=== PATIENT | female | born 1975 | race Caucasian/White ===

== ENCOUNTER → 2021-08-22 15:03 | Outpatient (CLI) | payer BC, SELFPAY ==
--- NOTE | ~2021-08-22 | MM_ITS ---
EXAMINATION: MM screening nella BI w david HISTORY: Screening mammogram TECHNIQUE: Craniocaudal and mediolateral oblique 3-D tomosynthesis images were obtained and synthetic 2-D images were generated. CAD analysis was submitted and interpreted. COMPARISON: No prior mammogram is available for comparison at this institution. BREAST PARENCHYMAL COMPOSITION: The breasts are almost entirely fatty. FINDINGS: There is no evidence of suspicious mass, calcification, or architectural distortion to sugg est malignancy in either breast. There has been no suspicious interval change. IMPRESSION: 1. No mammographic evidence of malignancy. 2. Recommend routine screening mammography in one year. BI-RADS Category 1: Negative Reviewed, dictated and finalized at location A.
== END ==
PROVIDERS: PCP Physician Assistant; Visit Provider Nurse Practitioner
DX: Z12.31 Encounter for screening mammogram for malignant neoplasm of breast (principal)
CPT/HCPCS: 77063; 77067

== ENCOUNTER → 2022-10-08 13:42 | Outpatient (CLI) | payer OTHER, SELFPAY ==
--- NOTE | ~2022-10-08 | US_ITS ---
EXAMINATION: US pelvic complete w TV DATE: 10/08/2022 14:11 INDICATION: Abnormal uterine bleeding. TECHNIQUE: Multiple transabdominal and transvaginal sonographic images of the pelvis were obtained. COMPARISON: None. FINDINGS: TRANSABDOMINAL ULTRASOUND: The uterus measures 10.1 x 4.9 x 6.1 cm. There is no free fluid in the pelvis. TRANSVAGINAL ULTRASOUND: The endometrial complex measures 10 mm in thickness. The right ovary measures 2.7 x 1.6 x 1.9 cm. The left ovary measures 2.6 x 2.4 x 2.8 cm. There is normal vascular flow in the ovaries. IMPRESSION: 1. Normal pelvis. Reviewed, dictated and finalized at location E. IMPRESSION: 1. Normal pelvis.
--- NOTE | ~2022-10-08 | MM_ITS ---
EXAMINATION: MM diagnostic nella BI w david HISTORY: Right breast pain TECHNIQUE: ML, MLO and CC 3-D tomosynthesis images of both breasts were performed and synthetic 2-D i mages were generated. CAD analysis was submitted and interpreted. COMPARISON: 08/22/2021, 08/02/2017bilateral screening mammogram examinations BREAST PARENCHYMAL COMPOSITION: There are scattered areas of fibroglandular density. FINDINGS: No suspicious mass or architectural distortion, malignant calcification, skin thickening or retraction or significant new or developing density is detected. IMPRESSION: 1. No mammographic evidence of malignancy 2. Routine annual mammographic screening is recommended BI-RADS Category 1: Negative Reviewed, dictated and finalized at location A.
== END ==
PROVIDERS: PCP Physician Assistant; Visit Provider Nurse Practitioner
DX: N93.8 Other specified abnormal uterine and vaginal bleeding (principal); N64.4 Mastodynia
CPT/HCPCS: 76830; 76856; 77062; 77066; G0279

== ENCOUNTER → 2023-03-30 16:40 | Outpatient (CLI) | payer OTHER, SELFPAY ==
--- NOTE | ~2023-03-30 | XR_ITS ---
XR chest 2V DATE: 03/30/2023 16:59 INDICATION: Cough TECHNIQUE: 2 views COMPARISON: None FINDINGS: Normal heart size. No hilar or mediastinal enlargement. No pulmonary infiltrate or consolid ation, pleural effusion or pulmonary vascular congestion or pneumothorax is detected. IMPRESSION: No active cardiopulmonary disease Reviewed, dictated and finalized at [facility] L. LE MECHANIC
== END ==
PROVIDERS: PCP Physician Assistant; Visit Provider Physician Assistant
DX: R05.9 Cough, unspecified (principal)
CPT/HCPCS: 71046

== ENCOUNTER 2024-01-12 12:22 | Outpatient (CLI) | payer BC, SELFPAY ==
--- NOTE | ~2024-01-12 | MM_ITS ---
EXAMINATION: MM screening [facility] BI w david HISTORY: Screening TECHNIQUE: Craniocaudal and mediolateral oblique 3-D tomosynthesis images were obtained and synthetic 2-D images were generated. CAD analysis was submitted and interpreted. COMPARISON: Comparison to multiple prior studies sequentially, with oldest reviewed study dated 09/2017. BREAST PARENCHYMAL COMPOSITION: There are scattered areas of fibroglandular density. FINDINGS: There is no evidence of suspicious mass, calcification, or architectural distortion to sugg est malignancy in either breast. There has been no suspicious interval change. IMPRESSION: 1. No mammographic evidence of malignancy. 2. Recommend routine screening mammography in one year. BI-RADS Category 1: Negative Reviewed, dictated and finalized at location B.
== END 2024-01-12 12:23 | disposition home or self-care (01) ==
PROVIDERS: PCP Physician Assistant; Visit Provider Obstetrics & Gynecology Gynecology
DX: Z12.31 Encounter for screening mammogram for malignant neoplasm of breast (principal)
CPT/HCPCS: 77063; 77067

== ENCOUNTER 2024-02-10 12:16 | Outpatient (CLI) | payer BC, SELFPAY ==
--- NOTE | ~2024-02-10 | XR_ITS ---
Left Knee Technique: AP, lateral, and sunrise views were obtained. Clinical History: Injury Findings: No fracture or dislocation is seen. Osseous alignment is anatomic. Joint spaces are preserv ed without degenerative or erosive change. Soft tissues are unremarkable. No joint effusion is seen. Impression: Unremarkable left knee radiographs. Reviewed, dictated and finalized at [facility]. ECTOR AIR CARRIER Impression: Unremarkable left knee radiographs.
--- NOTE | ~2024-02-10 | US_ITS ---
EXAMINATION: US venous doppler [facility] DATE: 02/10/2024 12:48 INDICATION: Left lower leg pain TECHNIQUE: Grayscale ultrasound images without and with compression and Doppler ultrasound images of the left lower extremity veins were obtained. COMPARISON: None. FINDINGS: The visualized portions of left common femoral vein, profunda (deep) femoral vein, femoral vein, popl iteal vein, peroneal veins, posterior tibial veins, gastrocnemius vein and greater saphenous vein out flow are patent. IMPRESSION: 1. No deep venous thrombosis in the left lower limb. Reviewed, dictated and finalized at location B. FITS ADVISOR
== END 2024-02-10 12:17 | disposition home or self-care (01) ==
LOC: MICIMG 12:18
PROVIDERS: PCP Physician Assistant; Visit Provider Physician Assistant
DX: M79.662 Pain in left lower leg (principal); S89.92XA Unspecified injury of left lower leg, initial encounter; X58.XXXA Exposure to other specified factors, initial encounter
CPT/HCPCS: 73562; 93971

== ENCOUNTER 2025-01-15 12:30 | Outpatient (CLI) | payer BC, SELFPAY ==
--- NOTE | ~2025-01-15 | MM_ITS ---
EXAMINATION: MM screening nella BI w david HISTORY: Screening TECHNIQUE: Craniocaudal and mediolateral oblique 3-D tomosynthesis images were obtained and synthetic 2-D images were generated. CAD analysis was submitted and interpreted. COMPARISON: Comparison to multiple prior studies sequentially, with oldest reviewed study dated 08/02/2017. BREAST PARENCHYMAL COMPOSITION: Not Dense: The breasts are almost entirely fatty. FINDINGS: There is no evidence of suspicious mass, calcification, or architectural distortion to suggest malignancy in either breast. There has been no suspicious interval change. IMPRESSION: 1. No mammographic evidence of malignancy. 2. Recommend routine screening mammography in one year. BI-RADS Category 1: Negative Reviewed, dictated and finalized at location O.
== END 2025-01-15 12:31 | disposition home or self-care (01) ==
LOC: MICIMG 12:31
PROVIDERS: PCP Physician Assistant; Visit Provider Obstetrics & Gynecology Gynecology
DX: Z12.31 Encounter for screening mammogram for malignant neoplasm of breast (principal)
CPT/HCPCS: 77063; 77067

== ENCOUNTER 2025-03-17 17:47 | Emergency (ER) | payer BC, SELFPAY ==
--- OUTSIDE RECORDS SUMMARY | 2025-03-16 13:05 | XMS_ITS | Encounter Summary ---
Author Organization [facility] Address [address] [place] [address] Phone Care Team Providers Care Sailor Name Role Phone Jessica Lopez Primary Care Provider [phone] Reason for Visit * Reason Comments Sore Throat Encounter Details Date Type Department Care Team (Latest Contact Info) Description 03/16/2025 1:05 PM OVERHEAD DOOR TECHNICIAN [facility] [place] [address] [place] [address] Maribell Dhillon, LINKER UP, PERSONAL COMPUTER SPECIALIST [address] [place] [address] Viral pharyngitis (Primary Dx); Sore throat Discharge Disposition: Discharged to home or Selfcare Social History Tobacco Use Types Packs/Day Years Used Date Smoking Tobacco: Former Cigarettes 0.5 5 0 03/29/1995 - 03/29/2000 Smokeless Tobacco: Never Tobacco Cessation:Counseling Given: Not Answered Alcohol Use Standard Drinks/Week Comments No 0 (1 standard drink = 0.6 oz pur e alcohol) AUDIT-C Answer Date Recorded Q1: How often do you have a drink containing alcohol? Never 03/16/2025 Q2: How many drinks containi ng alcohol do you have on a typical day when you are drinking? Patient does not drink Q3: How often do you have si x or more drinks on one occasion? Never 03/16/2025 Sexually Active Control Partners Comments Not Currently Comments No Sex and Gender Information Value Date Recorded Sex Assigned at Not on file Legal Sex Female 3:05 AM OVERHEAD DOOR TECHNICIAN Gender Identity Not on file Sexual Orientation Not on file documented as of this encounter Last Filed Vital Signs Vital Sign Reading Time Taken Comments Blood Pressure 104/84 03/16/2025 1:11 PM OVERHEAD DOOR TECHNICIAN Pulse 83 03/16/2025 1:11 PM OVERHEAD DOOR TECHNICIAN Temperature 36.8 C (98.3 F) 03/16/2025 1:11 PM OVERHEAD DOOR TECHNICIAN Respiratory Rate 18 03/16/2025 1:11 PM OVERHEAD DOOR TECHNICIAN Oxygen Saturation 99% 03/16/2025 1:11 PM OVERHEAD DOOR TECHNICIAN Inhaled Oxygen Concentration - - Weight 142.9 kg (315 lb) 03/16/2025 1:11 PM OVERHEAD DOOR TECHNICIAN Height - - Body Mass Index 49.34 08/02/2015 1:07 PM CDT documented in this encounter Functional Status * BP Answer Date of Assessment Author 104/84 03/16/2025 1:11 PM OVERHEAD DOOR TECHNICIAN Denia Snyder, FACILITIES SUPERVISOR * Temp Answer Date of Assessment Author 98.3 03/16/2025 1:11 PM OVERHEAD DOOR TECHNICIAN Denia Snyder, FACILITIES SUPERVISOR * Pulse Answer Date of Assessment Author 83 03/16/2025 1:11 PM OVERHEAD DOOR TECHNICIAN Denia Snyder, FACILITIES SUPERVISOR * Resp Answer Date of Assessment Author 18 03/16/2025 1:11 PM OVERHEAD DOOR TECHNICIAN Denia Snyder, FACILITIES SUPERVISOR * SpO2 Answer Date of Assessment Author 99 03/16/2025 1:11 PM OVERHEAD DOOR TECHNICIAN Denia Snyder, FACILITIES SUPERVISOR * AUDIT-C Score Answer Date of Assessment Author 0 03/16/2025 1:12 PM OVERHEAD DOOR TECHNICIAN Denia Snyder, FACILITIES SUPERVISOR * Alcohol Use Question Answer Date of Assessment Author Q1: How often do you have a drink containing alcohol? Never 03/16/2025 1:12 PM Syed Schuler CM A Q2: How many drinks containing alcohol do you have on a typical day when you are drinking? Patient does not drink 03/16/2025 1:12 PM OVERHEAD DOOR TECHNICIAN Syed Snyder FACILITIES SUPERVISOR Q3: How often do you have six or more drinks on one occasion? Never 03/16/2025 1:12 PM OVERHEAD DOOR TECHNICIAN Syed Snyder CM A * AUDIT-C Score Answer Date of Assessment Author 0 03/16/2025 1:12 PM OVERHEAD DOOR TECHNICIAN Denia Snyder, FACILITIES SUPERVISOR * Alcohol Use Question Answer Date of Assessment Author Q1: How often do you have a drink containing alcohol? Never 03/16/2025 1:12 PM Syed Schuler CM A Q2: How many drinks containing alcohol do you have on a typical day when you are drinking? Patient does not drink 03/16/2025 1:12 PM Syed Schuler CMA Q3: How often do you have six or more drinks on one occasion? Never 03/16/2025 1:12 PM Syed Schuler CM A documented as of this encounter Mental Status * BP Answer Entry Date Author 104/84 03/16/2025 1:11 PM Denia Schuler, SUDHA * Temp Answer Entry Date Author 98.3 03/16/2025 1:11 PM Denia Schuler, SUDHA * Pulse Answer Entry Date Author 83 03/16/2025 1:11 PM Denia Schuler CMA * SpO2 Answer Entry Date Author 99 03/16/2025 1:11 PM Denia Schuler CMA documented in this encounter Patient Instructions * Patient Instructions* Maribell Dhillon APRN, CNP - 03/16/2025 1:05 PM OVERHEAD DOOR TECHNICIAN Rest as needed Tylenol or ibuprofen as needed for low grade fevers or body aches. Do not exceed the recommended daily dosage as noted on the package/bottle. Increase fluid intake: this can include water, tea, Gatorade, or Pedialyte. Avoid milk and juice asthese may increase loose stools. Over the counter cough Supressant may be used as may cough drops and throat lozenges. Avoid any over the counter cold medication with a decongestant if you have high blood pressure. If in doubt, ask the pharmacist for help. Cool mist humidifier at night in the bedroom will help with cough and congestion. Mucinex per package directions Finish all medications as prescribed. Cover your cough and wash your hands. If your symptoms worsen or you develop new symptoms that concern you, go to the ER. Follow up with PCP if no improvement in the symptoms, or symptoms worsen. HEAD DOOR TECHNICIAN * Attachments The following attachments cannot be sent through Care Everywhere. * Pharyngitis [id number]-my-Soel (American) documented in this encounter Progress Notes * Syed Snyder CMA - 03/16/2025 1:05 PM CST Christel Soriano complains of Sore Throat This is a new problem. Episode onset: Three days. The problem has been gradually worsening. Neitherside of throat is experiencing more pain than the other. There has been no fever. The pain is at a severity of 7/10. The pain is severe. She has had exposure to strep. She has tried nothing for the symptoms. Today's Review of Systems Constitutional: Negative. HENT: Positive for sore throat. Postnasal drip Eyes: Negative. Respiratory: Negative. Cardiovascular: Negative. Gastrointestinal: Negative. Genitourinary: Negative. Musculoskeletal: Negative. Skin: Negative. Neurological: Negative. Endo/Heme/Allergies: Negative. Psychiatric/Behavioral: Negative. HEAD DOOR TECHNICIAN * ySed Synder CMA - 03/16/2025 1:05 PM CST Pt was tested for streptococcal pharyngitis by swabbing the oropharynx. Pt tolerated well without incident. HEAD DOOR TECHNICIAN * Maribell Dhillon APRN, PERSONAL COMPUTER SPECIALIST - 03/16/2025 1:05 PM CST HPI: Christel Soriano is a 49 y.o. female in the [facility] care today for a sore throat and post nasal drainage. She denies any further symptoms. Her son is positive for strep. Symptoms started 3 days ago Severity of symptoms is moderate Symptoms have Not changed Patient is not currently taking over the counter medications for the symptoms. No pertinent Past, family, or social history was noted Problem List[1] ROS: Review of Systems Constitutional: Negative for chills and fever. HENT: Positive for postnasal drip and sore throat. Negative for congestion, ear pain, rhinorrhea, sinus pressure, sinus pain and sneezing. Respiratory: Negative for cough, chest tightness, shortness of breath and wheezing. Gastrointestinal: Negative for diarrhea, nausea and vomiting. Musculoskeletal: Negative for myalgias. Neurological: Negative for headaches. PE: BP 104/84 (BP Location: Right Arm, BP Position: Sitting, BP Cuff Size: Large) Pulse 83 Temp 98.3 ??F (36.8 ??C) (Oral) Resp 18 Wt 315 lb (142.9 kg) LMP 03/04/2025 (Exact Date) SpO2 99% BMI 49.34 kg/m?? Physical Exam Vitals and nursing note reviewed. Constitutional: Appearance: Normal appearance. She is normal weight. HENT: Right Ear: Tympanic membrane, ear canal and external ear normal. Left Ear: Tympanic membrane, ear canal and external ear normal. Nose: Nose normal. Mouth/Throat: Mouth: Mucous membranes are moist. Pharynx: Oropharynx is clear. Eyes: Conjunctiva/sclera: Conjunctivae normal. Cardiovascular: Rate and Rhythm: Normal rate and regular rhythm. Pulses: Normal pulses. Heart sounds: Normal heart sounds. Pulmonary: Effort: Pulmonary effort is normal. No respiratory distress. Breath sounds: Normal breath sounds. Musculoskeletal: Cervical back: Neck supple. Lymphadenopathy: Cervical: No cervical adenopathy. Skin: General: Skin is warm and dry. Neurological: Mental Status: She is alert. ASSESSMENT/PLAN: Diagnoses and all orders for this visit: Viral pharyngitis Sore throat - POC GROUP A STREP BY MOLECULAR Patient Instructions Rest as needed Tylenol or ibuprofen as needed for low grade fevers or body aches. Do not exceed the recommended daily dosage as noted on the package/bottle. Increase fluid intake: this can include water, tea, Gatorade, or Pedialyte. Avoid milk and juice asthese may increase loose stools. Over the counter cough Supressant may be used as may cough drops and throat lozenges. Avoid any over the counter cold medication with a decongestant if you have high blood pressure. If in doubt, ask the pharmacist for help. Cool mist humidifier at night in the bedroom will help with cough and congestion. Mucinex per package directions Finish all medications as prescribed. Cover your cough and wash your hands. If your symptoms worsen or you develop new symptoms that concern you, go to the ER. Follow up with PCP if no improvement in the symptoms, or symptoms worsen. Chief complaint and all history documented by ancillary staff were reviewed and verified, with additions or corrections, as appropriate. [1] Patient Active Problem List Diagnosis Obesity ADHD (attention deficit hyperactivity disorder) Restless leg syndrome PCOS (polycystic ovarian syndrome) Vitamin D deficiency Hypercholesteremia HEAD DOOR TECHNICIAN documented in this encounter Plan of Treatment Not on file documented as of this encounter Procedures Procedure Name Priority Date/Time Associated Diagnosis Comments POC GROUP A STREP BY MOLECULAR Routine 03/16/2025 1:25 PM OVERHEAD DOOR TECHNICIAN Sore throat documented in this encounter Results * POC GROUP A STREP BY MOLECULAR (03/16/2025 1:25 PM OVERHEAD DOOR TECHNICIAN) STREP A DNA Negative Negative, Invalid PROCEDURE CONTROL Valid 03/16/2025 1:25 PM OVERHEAD DOOR TECHNICIAN Maribell Dhillon APRN, CNP POINT OF CARE TEST ING (MANUAL) Final Result documented in this encounter Visit Diagnoses Diagnosis Viral pharyngitis- Primary Acute pharyngitis Sore throat Acute pharyngitis documented in this encounter Care Teams Sailor Relationship Specialty Start Date End Date Jessica Lopez PA PCP - General Family Medicine 09/24/21 documented as of this encounter
--- OUTSIDE RECORDS SUMMARY | 2025-03-17 17:49 | XMS_ITS | Encounter Summary ---
Author Organization [facility] Healthcare Address [address] [place] [address] Care Team Providers Care Director Of Pediatric Rehabilitation Name Role Phone Jessica Lopez Primary Care Pr ovider Lisa Amato Unavailable [phone] Encounter Details Date Type Department Care Team (Late st Contact Info) Description 03/02/2025 Results Follow-Up [facility] Sports Medicine and Primary Care at [address] [place] [address] Sivakumar Dodson, [address] [place] [address] NM Bone Imaging Whole Body Social History Tobacco Use Types Packs/Day Years Used Date Smoking Tobacco: Former Cigarettes Q uit: 1997 Smokeless Tobacco: Never Alcohol Use Standard Drinks/Week Comments Never 0 (1 standard drink = 0.6 oz pur e alcohol) AUDIT-C Answer Date Recorded Q1: How often do you have a drink containing alcohol? Never 12/14/2024 Q2: How many drinks containi ng alcohol do you have on a typical day when you are drinking? Patient does not drink Q3: How often do you have si x or more drinks on one occasion? Never 12/14/2024 Personal Safety Answer Date Recorded Have you ever been in or are you currently in a harmful physical or emotional relationship or is someone making you feel afraid or unsafe? Denies 11/30/2024 Comments No Sex and Gender Information Value Date Recorded Sex Assigned at Not on file Legal Sex Female 10:54 AM WOMENS VOLLEYBALL COACH Gender Identity Not on file Sexual Orientation Not on file documented as of this encounter Miscellaneous Notes * Result Encounter Note - Vanessa Glynn MA - 03/06/2025 4:26 PM CST Spoke with patient she voiced understanding the NM Bone Scan test result message and recommendations. NS VOLLEYBALL COACH * Telephone Encounter - Lisa Avalos - 03/06/2025 3:29 PM CST Patient left message stating she is returning our call NS VOLLEYBALL COACH * Result Encounter Note - Vanessa Glynn MA - 03/06/2025 10:38 AM CST Left message for patient to return my call for results. NS VOLLEYBALL COACH * Result Encounter Note - Vanessa Glynn MA - 03/02/2025 11:51 AM CST Unable to contact patient or leave a message. Mailbox is full and cannot leave a message. NS VOLLEYBALL COACH documented in this encounter Plan of Treatment Not on file documented as of this encounter Visit Diagnoses Not on filedocumented in this encounter Care Teams Director Of Pediatric Rehabilitation Relationship Specialty Start Date End Date Jessica Lopez PA PCP - General 10/10/18 Lisa Amato PA [address] [place] [address] DR SIMPSON [address] [place] [id number] Physician R D Internship Orthopedic Surgery 11/30/24 documented as of this encounter
--- OUTSIDE RECORDS SUMMARY | 2025-03-17 17:49 | XMS_ITS | Encounter Summary ---
Author Organization [facility] Healthcare Address [address] [place] [address] Care Team Providers Care Nondestructive Tester Name Role Phone Jessica Lopez Primary Care Pr ovider Lisa Amato Unavailable [phone] Encounter Details Date Type Department Care Team (Late st Contact Info) Description 02/09/2025 Results Follow-Up [facility] Medical Group Sports Medicine and Primary Care at [address] [place] [address] Sivakumar Dodson, [address] [place] [address] MRI Knee Left W WO Contrast Social History Tobacco Use Types Packs/Day Years [...] on file Legal Sex Female 10:54 AM STATISTICAL MODELER Gender Identity Not on file Sexual Orientation Not on file documented as of this encounter Miscellaneous Notes * Telephone Encounter - Rylie Davila - 02/09/2025 2:36 PM CST Justyna from PCP Jessica Lopez's office called. They needs something sent over stating patient needs a bone scan. Please fax to: [phone]. Any questions, call [phone]. ISTICAL MODELER documented in this encounter Plan of Treatment Not on file documented as of this encounter Visit Diagnoses Not on filedocumented in this encounter Care Teams Nondestructive Tester Relationship Specialty Start Date End Date Jessica Lopez PA PCP - General 10/10/18 Lisa Amato PA [address] [facility] [address] SIMPSON [address] [place] [id number] Physician Sales And Service Agent Orthopedic Surgery 11/30/24 documented as of this encounter
--- OUTSIDE RECORDS SUMMARY | 2025-03-17 17:49 | XMS_ITS | Encounter Summary ---
Author Organization [employer] Care Team Providers Care Pressure Sealer And Tester Name Role Phone Jessica Lopez Primary Care Provider [phone] Encounter Details Date Type Department Care Team (Latest Contact Info) Description 03/16/2025 Travel Social History Tobacco Use Types Packs/Day Years Used Date Smoking Tobacco: Former Cigarettes 0.5 5 0 03/29/1995 - 03/29/2000 Smokeless Tobacco: Never Alcohol Use Standard Drinks/Week Comments No 0 [...] on file Legal Sex Female 3:05 AM INDUSTRIAL TRUCK OPERATOR Gender Identity Not on file Sexual Orientation Not on file documented as of this encounter Functional Status * BP Answer Date of Assessment Author 104/84 03/16/2025 1:11 PM INDUSTRIAL TRUCK OPERATOR Denia Snyder, COOPERATIVE EDUCATION COORDINATOR * Temp Answer Date of Assessment Author 98.3 03/16/2025 1:11 PM INDUSTRIAL TRUCK OPERATOR Denia Snyder, COOPERATIVE EDUCATION COORDINATOR * Pulse Answer Date of Assessment Author 83 03/16/2025 1:11 PM INDUSTRIAL TRUCK OPERATOR Denia Snyder, COOPERATIVE EDUCATION COORDINATOR * Resp Answer Date of Assessment Author 18 03/16/2025 1:11 PM INDUSTRIAL TRUCK OPERATOR Denia Snyder, COOPERATIVE EDUCATION COORDINATOR * SpO2 Answer Date of Assessment Author 99 03/16/2025 1:11 PM Denia Schuler, COOPERATIVE EDUCATION COORDINATOR * AUDIT-C Score Answer Date of Assessment Author 0 03/16/2025 1:12 PM Denia Schuler, COOPERATIVE EDUCATION COORDINATOR * Alcohol Use Question Answer Date of Assessment Author Q1: How often do you have a drink containing alcohol? Never 03/16/2025 1:12 PM Syed Schuler CM A Q2: How many drinks containing alcohol do you have on a typical day when you are drinking? Patient does not drink 03/16/2025 1:12 PM Syed Schuler COOPERATIVE EDUCATION COORDINATOR Q3: How often do you have six or more drinks on one occasion? Never 03/16/2025 1:12 PM Syed Schuler CM A * AUDIT-C Score Answer Date of Assessment Author 0 03/16/2025 1:12 PM Denia Schuler, COOPERATIVE EDUCATION COORDINATOR * Alcohol Use Question Answer Date of Assessment Author Q1: How often do you have a drink containing alcohol? Never 03/16/2025 1:12 PM Syed Schuler CM A Q2: How many drinks containing alcohol do you have on a typical day when you are drinking? Patient does not drink 03/16/2025 1:12 PM Syed Schuler COOPERATIVE EDUCATION COORDINATOR Q3: How often do you have six or more drinks on one occasion? Never 03/16/2025 1:12 PM Syed Schuler CM A documented as of this encounter Mental Status * BP Answer Entry Date Author 104/84 03/16/2025 1:11 PM Denia Schuler, COOPERATIVE EDUCATION COORDINATOR * Temp Answer Entry Date Author 98.3 03/16/2025 1:11 PM Denia Schuler, COOPERATIVE EDUCATION COORDINATOR * Pulse Answer Entry Date Author 83 03/16/2025 1:11 PM Denia Schuler, COOPERATIVE EDUCATION COORDINATOR * SpO2 Answer Entry Date Author 99 03/16/2025 1:11 PM Denia Schuler, COOPERATIVE EDUCATION COORDINATOR documented in this encounter Plan of Treatment Not on file documented as of this encounter Visit Diagnoses Not on filedocumented in this encounter Care Teams Pressure Sealer And Tester Relationship Specialty Start Date End Date Jessica Lopez PA PCP - General Family Medicine 09/24/21 documented as of this encounter
--- OUTSIDE RECORDS SUMMARY | 2025-03-17 17:49 | XMS_ITS | Clinical Summary ---
Author Organization [facility] Address [address] [place] [address] Care Team Providers Care Engagement Liaison Name Role Phone Pcp, No Primary Care Provider [phone] Social History Tobacco Use Types Packs/Day Years Used Date Smoking Tobacco: Never Assessed Comments Unknown Sex and Gender Information Value Date Recorded Sex Assigned at Not on file Legal Sex Female 3:05 PM EST Gender Identity Not on file Sexual Orientation Not on file Plan of Treatment Not on file Medical Devices Not on file Care Teams Engagement Liaison Relationship Specialty Start Date End Date PcpJeanette PCP - General Family Medicine 04/04/21
--- OUTSIDE RECORDS SUMMARY | 2025-03-17 17:49 | XMS_ITS | Clinical Summary ---
Author Organization [facility] Address [address] [place] [phone] Phone Care Team Providers Care Lithographic Photographer Name Role Phone Unavailable Primary Care Provider Unavailabl e Social History Tobacco Use Types Packs/Day Years Used Date Smoking Tobacco: Never Assessed Comments Unknown Sex and Gender Information Value Date Recorded Sex Assigned at Not on file Legal Sex Female 12:21 PM CDT Gender Identity Not on file Sexual Orientation Not on file Plan of Treatment Health Maintenance Due Date Last Done Comments HEPATITIS B VACCINES (1 of 3 - 19+ 3-dose series) 06/24/1995 11/16/2003, 08/17/2003, 07/12/2003 HPV/Cotest (21-29) 1997 CERVICAL CANCER SCREENING 2006 HPV/Cotest (30-65) 2006 PAP SMEAR 2006 BREAST CANCER SCREENING 2016 COLORECTAL SCREENING 2021 Colorectal Cancer Screening 2021 FIT-DNA Q 3 years 2021 FIT/FOBT Q 1 year 2021 Flex Sig/CT Colonography Q 5 years 2021 DTAP/TDAP/TD VACCINES (2 - T d or Tdap) 10/04/2021 10/05/2011 INFLUENZA VACCINE (#1) 2024 03/04/2012 Insurance 99Jose Castrejon[place]ty [place] [id number] [place] BLUE ACCESS [facility]
--- OUTSIDE RECORDS SUMMARY | 2025-03-17 17:49 | XMS_ITS | Clinical Summary ---
Author Organization [facility] Address [address] [place] [address] Care Team Providers Care Assistant Broker Name Role Phone MichellekavehJessica Primary Care Pr ovider Lisa Amato Unavailable Allergies Active Allergy Reactions Criticality Noted Date Comments Gluten Rash Medium 05/24/2017 Medications ergocalciferol (VITAMIN D) 50,000 unit capsuleIndicati ons:Vitamin D Deficiency Take 1 capsule (50,000 Units total) by mouth once a week Wednesday Active levothyroxine (SYNTHROID) 75 mcg tabletIndicatio ns:hypothyroidi sm Take 1 tablet (75 mcg total) by mouth molding machine setter before breakfast Active valACYclovir (VALTREX) 1 gram tablet Take 1 tablet (1,000 mg total) by mouth 2 (two) times a day as needed (HSV outbreak) Active albuterol 2.5 mg /3 mL (0.083 %) nebulizer solution Take 3 mL (2.5 mg total) by nebulization every 6 (six) hours as needed for wheezing Active albuterol HFA (PROVENTIL HFA,VENTOLIN HFA,PROAIR HFA) 90 mcg/actuation inhaler Inhale 2 puffs every 6 (six) hours as needed for wheezing or shortness of breath Active dextromethorpha n-guaiFENesin (ROBITUSSIN-DM) oral liquid 10-200 mg/5mL Take 30 mL by mouth every 8 (eight) hours as needed (URI) Active meloxicam (MOBIC) 15 mg tablet Take 1 tablet (15 mg total) by mouth daily 5 Active ascorbic acid (VITAMIN C) 500 mg tablet,chewable Take 1 tablet/chew tab (500 mg total) by mouth 2 (two) times a day 60 tablet/chew tab 5 Active aspirin 81 mg enteric coated tabletIndicatio ns:prevention of thrombosis Take 1 tablet (81 mg total) by mouth 2 (two) times a day for 14 days 28 tablet 5 Active cholecalciferol (VITAMIN D-3) 2000 unit capsule Take 1 capsule (2,000 Units total) by mouth daily 30 capsule 5 Active ondansetron (ZOFRAN) 4 mg tabletIndicatio ns:Prevention of Post-Operative Nausea and Vomiting Take 1 tablet (4 mg total) by mouth every 6 (six) hours as needed for nausea or vomiting 20 tablet 1 5 Active senna-docusate (PERICOLACE) 8.6-50 mg Take 1 tablet by mouth 2 (two) times a day as needed for constipation 20 tablet 1 5 Active Active Problems Problem Noted Date Diagnosed Date Complex tear of medial meniscus of left knee Complex tear of medial menis cus of left knee as current injury 11/17/2024 Morbid obesity with BMI of 45.0-49.9, adult 10/28 Encounter for screening colonoscopy 07/13/2023 Obstructive sleep apnea 10/12/2022 Resolved Problems Problem Noted Date Diagnosed Date Resolved Date Chronic tonsillitis 07/21/2022 10/13/19 23 Encounters Date Type Department Care Team Description 03/15/2025 10:15 AM CRIMPING MACHINE OPERATOR FOR METAL Therapy [facility] [place] [address] Alena Kent, PT Separation of abdominal muscles (Primary Dx) 03/08/2025 1:00 PM CRIMPING MACHINE OPERATOR FOR METAL Therapy [facility] [place] [address] Alena Kent, PT Separation of abdominal muscles (Primary Dx) 03/02/2025 1:00 PM CRIMPING MACHINE OPERATOR FOR METAL Therapy [facility] [place] [address] [place] [address] Alena Kent, BRENDA Separation of abdominal muscles (Primary Dx) 03/02/2025 Results Follow-Up [facility] Primary Care at [address] [place] [address] Sivakumar Dodson DO NM Bone Imaging Whole Body 03/01/2025 11:11 AM CRIMPING MACHINE OPERATOR FOR METAL - 03/01/2025 11:59 PM CRIMPING MACHINE OPERATOR FOR METAL Hospital Encounter [facility] [address] [place] [address] Discharge Disposition: Discharge to home or self care 03/01/2025 11:11 AM CRIMPING MACHINE OPERATOR FOR METAL - 03/01/2025 11:59 PM CRIMPING MACHINE OPERATOR FOR METAL Hospital Encounter [facility] [address] [place] [id number] Lesion of bone of left lower leg; Internal derangement of left knee; Patellofemoral syndrome of left knee Discharge Disposition: Discharge to home or self care 02/14/2025 Orders Only [facility] Primary Care at [address] [place] [phone] Sivakumar Dodson DO Lesion of bone of left lower leg (Primary Dx); Internal derangement of left knee; Patellofemoral syndrome of left knee 02/14/2025 Telephone [facility] [address] [facility] [address] [phone] Sivakumar Dodson DO 02/09/2025 9:02 AM CRIMPING MACHINE OPERATOR FOR METAL - 02/09/2025 11:59 PM CRIMPING MACHINE OPERATOR FOR METAL Hospital Encounter [facility] [address] [place] [address] Lesion of bone of left lower leg; Internal derangement of left knee; Patellofemoral syndrome of left knee Discharge Disposition: Discharge to home or self care 02/09/2025 Results Follow-Up [facility] Primary Care at [address] [place] [phone] Sivakumar Dodson DO MRI Knee Left W WO Contrast 02/08/2025 Telephone [facility] and Primary Care at [address] [place] [address] Alessandra Beck MA Approved MRI left knee with contrast 02/07/2025 10:00 AM CRIMPING MACHINE OPERATOR FOR METAL Office Visit [facility] Primary Care at [address] [place] [address] Sivakumar Dodson, Lesion of bone of left lower leg (Primary Dx) 02/07/2025 Orders Only [facility] and Primary Care at [address] [place] [address] Sivakumar Dodson, Lesion of bone of left lower leg (Primary Dx); Internal derangement of left knee; Patellofemoral syndrome of left knee 01/31/2025 1:00 PM CRIMPING MACHINE OPERATOR FOR METAL Therapy [facility] [place] [address] Alena Kent, PT Separation of abdominal muscles (Primary Dx) 01/24/2025 2:45 PM CDT Therapy [facility] [place] [address] Alena Kent, PT Separation of abdominal muscles (Primary Dx) 01/24/2025 Plan of Care Documentation [facility] [place] [address] 01/08/2025 11:00 AM CDT Therapy [facility] [place] [address] Alena Kent, PT S/P medial meniscectomy of left knee (Primary Dx); Complex tear of medial meniscus of left knee as current injury, subsequent encounter 01/05/2025 2:30 PM CDT Therapy [facility] [place] [address] Alena Kent, PT S/P medial meniscectomy of left knee (Primary Dx); Complex tear of medial meniscus of left knee as current injury, subsequent encounter 12/28/2024 1:00 PM CDT Therapy [facility] [place] [address] Alena Kent, PT S/P medial meniscectomy of left knee (Primary Dx); Complex tear of medial meniscus of left knee as current injury, subsequent encounter 12/25/2024 11:00 AM CDT Therapy [facility] [place] [address] Alena Kent, PT S/P medial meniscectomy of left knee (Primary Dx); Complex tear of medial meniscus of left knee as current injury, subsequent encounter 12/21/2024 1:45 PM CDT Therapy [facility] [place] [address] Alena Kent, PT S/P medial meniscectomy of left knee (Primary Dx); Complex tear of medial meniscus of left knee as current injury, subsequent encounter 12/18/2024 10:15 AM CDT Therapy [facility] [place] [address] Alena Kent, PT S/P medial meniscectomy of left knee (Primary Dx); Complex tear of medial meniscus of left knee as current injury, subsequent encounter from Last 3 Months Immunizations Immunization Administration Dates Next Due Hep B Vaccine 11/16/2003,08/17/2003,07/12/2003 Influenza, Trivalent, IM (MDV) 03/04/2012 MMR 10/16/1990 PPD TEST 11/10/2022 Td, adsorbed 07/12/2003 Tdap 04/23/2018,10/05/2011 Tetanus Toxoid, Unspecified 03/29/2011 Surgical History Surgery Date Site/Laterality Comments KNEE SURGERY 03/29/2007 - 03/28/2008 SECTION 03/29/2018 - 03/28/2019 WISDOM TOOTH EXTRACTION 03/29/1993 - 03/28/1994 COLONOSCOPY 2015 DILATION AND CURETTAGE OF UTERUS 03/29/2013 - 03/28/2014 CERVICAL BIOPSY W/ LOOP ELEC TRODE EXCISION 03/29/2005 - 03/28/2006 TONSILLECTOMY 09/10/2022 Medical History Medical History Date Comments DM2 (diabetes mellitus, type 2) pre-diabetic Sleep apnea December 2021 Palpitations Hypothyroidism PONV (postoperative nausea and vomiting) GERD (gastroesophageal reflux disease) PCOS (polycystic ovarian syndrome) ADHD (attention deficit hyperactivity disorder) Exercise-induced asthma Family History Medical History Relation Name Comments Anesthesia problems Neg Hx Social History Tobacco Use Types Packs/Day Years Used Date Smoking Tobacco: Former Cigarettes Q uit: 1997 Smokeless Tobacco: Never Tobacco Cessation:Counseling Given: Not Answered Alcohol Use Standard Drinks/Week Comments Never 0 [...] on file Legal Sex Female 10:54 AM CRIMPING MACHINE OPERATOR FOR METAL Gender Identity Not on file Sexual Orientation Not on file Obstetrics History Para Term AB IAB SAB Ectopic Multiple Livin g Live Births 1 Date Outcome GA Total Labor Labor/2nd/3rd Weight Sex Type Anes PTL Emilee A1 A5 Name Clin Last Filed Vital Signs Vital Sign Reading Time Taken Comments Blood Pressure 137/92 02/07/2025 10:07 AM CRIMPING MACHINE OPERATOR FOR METAL Pulse 90 02/07/2025 10:07 AM CRIMPING MACHINE OPERATOR FOR METAL Temperature 36.3 C (97.4 F) 11/30/2024 4:15 PM CDT Respiratory Rate 20 11/30/2024 4:15 PM CDT Oxygen Saturation 96% 11/30/2024 4:15 PM CDT Inhaled Oxygen Concentration - - Weight 141.5 kg (312 lb) 02/07/2025 10:07 AM CRIMPING MACHINE OPERATOR FOR METAL Height 170.2 cm (5' 7) 12/14/2024 11:21 AM CDT Body Mass Index 48.87 12/14/2024 11:21 AM CDT Plan of Treatment Health Maintenance Due Date Last Done Comments Breast Cancer Screening-Mammogram 1976 Cervical Cancer Screening 1976 Colon Cancer Screening-Colonoscopy 1976 Depression Screening 1976 Hepatitis C Screening 1976 Regular Well Visit/Exam 18-64 1994 Covid-19 Vaccine (2 - 2024-2 6 season) 2024 12/02/2020 Influenza Vaccine (#1) 2024 03/04/2012 DTaP/Tdap/Td Vaccine (3 - Td or Tdap) 04/23/2028 04/23/2018, 10/05/2011, 07/12/2003 Hepatitis B Screening Completed 11/16/2003 , 08/17/2003, 07/12/2003 Pneumococcal vaccine <65 Aged Out No longer eligible based on patient's age to complete this topic Procedures Procedure Name Priority Date/Time Associated Diagnosis Comments NM BONE IMAGING WHOLE BODY Schedule Routine, Read Routine (OP Routine) 03/01/2025 3:16 PM CRIMPING MACHINE OPERATOR FOR METAL Lesion of bone of left lower leg Internal derangement of left knee Patellofemoral syndrome of left knee MRI KNEE LEFT W WO CONTRAST Schedule MOE, Read MOE (Appt Today, Awaiting Results) 02/09/2025 10:23 AM CRIMPING MACHINE OPERATOR FOR METAL Lesion of bone of left lower leg Internal derangement of left knee Patellofemoral syndrome of left knee from Last 3 Months Results * NM Bone Imaging Whole Body (03/01/2025 3:16 PM CRIMPING MACHINE OPERATOR FOR METAL) Anatomical Region Laterality Modality N/A Nuclear Medicine 03/01/2025 3:34 PM CRIMPING MACHINE OPERATOR FOR METAL Impressions 03/01/2025 3:34 PM CRIMPING MACHINE OPERATOR FOR METAL 1. No abnormal radiotracer uptake of the proximal left tibial lesion. 2. Mild right paravertebral activity in the thoracic spine likely degenerative. 3. No evidence of osteoblastic metastatic disease. Electronically signed by: Shaan Alegre M.D. Narrative 03/01/2025 3:34 PM CRIMPING MACHINE OPERATOR FOR METAL EXAM DESCRIPTION: NM BONE IMAGING WHOLE BODY REASON FOR STUDY: Bone lesion, knee, incidental Left Knee RADIOPHARMACEUTICAL: 25 mCi technetium 99m MDP via the left antecubital vein. TECHNIQUE: Delayed whole-body scintigrams were obtained. COMPARISON: Prior Bone Scan: No prior bone scan. Prior Anatomic imaging: MRI thoracic spine 05/24/2023 and MRI left knee 02/09/2025. FINDINGS: No no specific abnormal radiotracer activity at the area of interest in the proximal left tibia. Mild arthritic pattern of activity in the large joints. There is some mild activity along the right aspect at approximately T9 and to a lesser extent right aspect of T11-12 which may be degenerative given the lateral nature the activity. Procedure Note Shaan Alegre MD - 03/01/2025 EXAM DESCRIPTION: NM BONE IMAGING WHOLE BODY REASON FOR STUDY: Bone lesion, knee, incidental Left Knee RADIOPHARMACEUTICAL: 25 mCi technetium 99m MDP via the left antecubital vein. TECHNIQUE: Delayed whole-body scintigrams were obtained. COMPARISON: Prior Bone Scan: No prior bone scan. Prior Anatomic imaging: MRI thoracic spine 05/24/2023 and MRI left knee 02/09/2025. FINDINGS: No no specific abnormal radiotracer activity at the area of interest in the proximal left tibia. Mild arthritic pattern of activity in the large joints. There is some mild activity along the right aspect at approximately T9 and to a lesser extent right aspect of T11-12 which may be degenerative given the lateral nature the activity. IMPRESSION: 1. No abnormal radiotracer uptake of the proximal left tibial lesion. 2. Mild right paravertebral activity in the thoracic spine likely degenerative. 3. No evidence of osteoblastic metastatic disease. Electronically signed by: Shaan Alegre M.D. us Sivakumar Dodson DO IMG NM PROCEDURES Lita l Result * MRI Knee Left W WO Contrast (02/09/2025 10:23 AM CRIMPING MACHINE OPERATOR FOR METAL) Anatomical Region Laterality Modality Lower Extremities Left Magnetic Reson ance 02/09/2025 10:5 1 AM CRIMPING MACHINE OPERATOR FOR METAL Impressions 02/09/2025 10:51 AM CRIMPING MACHINE OPERATOR FOR METAL 1. Interval partial left medial meniscectomy with component of residual/recurrent undersurface inner margin fraying. 2. Mild medial and patellofemoral bicompartmental left knee chondrosis. 3. Moderate size knee effusion with mild synovitis. 4. Unchanged indeterminate posterior proximal left tibial marrow replacing lesion with subtle enhancement. Benign etiology remains atop the differential. This can be further evaluated with a bone scan if clinically indicated. Electronically signed by: Sivakumar Leyva M.D. Narrative 02/09/2025 10:51 AM CRIMPING MACHINE OPERATOR FOR METAL EXAMINATION: 1. MRI left knee with without contrast HISTORY: Proximal tibial marrow replacing lesion COMPARISON: MR 11/06/2024 FINDINGS: Multiplanar multisequence MR examination of the left knee was performed. Images obtained before and after administration of 20 mL intravenous gadolinium contrast. In the medial compartment, there has been interval partial meniscectomy. Component of residual oblique undersurface innermargin tearing is present. Partial thickness cartilage loss of the medial femoral condyle. In the lateral compartment, the meniscus is intact. There is no focal chondrosis or subchondral edema. In the patellofemoral compartment, there is partial thickness cartilage loss of the inferior patellar median ridge with superimposed fissuring and subchondral edema. The cruciate and collateral ligaments are intact. The extensor mechanism is normal. The popliteus tendon is normal. Moderate size knee effusion is present. No loose bodies are identified. Posterior knee ganglion noted. Small leaky Cabrera's cyst. Mild anterior knee subcutaneous edema. Redemonstrated is a posterior proximal tibial marrow replacing lesion. The lesion is T1 and T2 hyperintense with mild enhancement. No evidence of an extraskeletal component, periostitis or peritumoral edema. Similar appearing area of marrow signal is present involving the adjacent fibula with mild enhancement. Procedure Note Sivakumar Leyva MD - 02/09/2025 EXAMINATION: 1. MRI left knee with without contrast HISTORY: Proximal tibial marrow replacing lesion COMPARISON: MR 11/06/2024 FINDINGS: Multiplanar multisequence MR examination of the left knee was performed. Images obtained before and after administration of 20 mL intravenous gadolinium contrast. In the medial compartment, there has been interval partial meniscectomy. Component of residual oblique undersurface innermargin tearing is present. Partial thickness cartilage loss of the medial femoral condyle. In the lateral compartment, the meniscus is intact. There is no focal chondrosis or subchondral edema. In the patellofemoral compartment, there is partial thickness cartilage loss of the inferior patellar median ridge with superimposed fissuring and subchondral edema. The cruciate and collateral ligaments are intact. The extensor mechanism is normal. The popliteus tendon is normal. Moderate size knee effusion is present. No loose bodies are identified. Posterior knee ganglion noted. Small leaky Cabrera's cyst. Mild anterior knee subcutaneous edema. Redemonstrated is a posterior proximal tibial marrow replacing lesion. The lesion is T1 and T2 hyperintense with mild enhancement. No evidence of an extraskeletal component, periostitis or peritumoral edema. Similar appearing area of marrow signal is present involving the adjacent fibula with mild enhancement. IMPRESSION: 1. Interval partial left medial meniscectomy with component of residual/recurrent undersurface inner margin fraying. 2. Mild medial and patellofemoral bicompartmental left knee chondrosis. 3. Moderate size knee effusion with mild synovitis. 4. Unchanged indeterminate posterior proximal left tibial marrow replacing lesion with subtle enhancement. Benign etiology remains atop the differential. This can be further evaluated with a bone scan if clinically indicated. Electronically signed by: Sivakumar Leyva M.D. Sivakumar Dodson DO IMG MRI PROCEDURES Fin al Result from Last 3 Months Insurance [facility] BLUE [place] Care Teams Assistant Broker Relationship Specialty Start Date End Date Jessica Lopez PA PCP - General 10/10/18 Lisa Amato PA [address] [place] [address] [place] [address] Physician Spike Machine Feeder Orthopedic Surgery 11/30/24
--- OUTSIDE RECORDS SUMMARY | 2025-03-17 17:49 | XMS_ITS | Data Portability ---
Author Organization [facility] [place] Curry Address [address] [facility] [place] [address] Care Team Providers Care Junior Account Manager Name Role Phone UGO ORELLANA Primary Care Provider Unavailab le Assessment Encounter Date Assessment Date Assessment LastModified by Organization Details LastModified Time 07/13/2023 07/13/2023 Mammogram due early september and scheduled pap smear is august 2023 eye exam UTD just completed dental every 6 months. Colonoscopy still due. needs to reschedule[facility] [email or web address] Not available 07/13/2023 11:08:47 02/10/2024 02/10/2024 Mammogram due early september and scheduled pap smear is august 2023 eye exam UTD just completed dental every 6 months. Colonoscopy scheduled mar 2024 labs reviewed at appt. Not available 02/10/2024 12:44:34 09/26/2024 09/26/2024 Mammogram UTD pap smear is due eye exam UTD just completed dental every 6 months. Colonoscopy still to be rescheduled. [facility] Not available 09/26/2024 15:44:24 Plan of Treatment Reminders Order Date Submit Date Provider Last Modified By Organization Details Last Modified Time Details Appointments None record ed. Lab cortis ol, am, serum 2024 025 KAELA Sunny [facility], [address] [place], [address], 10:58:23 cortis ol, serum or plasma 2024 025 [email or web address] [place], [address] [place], [address], 5 14:12:05 HbA1c (hemog lobin A1c), blood 2023 025 KAELA Correa [facility], [address] [facility] [place], [address], 5 10:48:50 insuli n, serum 2023 025 [email or web address] Correa [facility], [address] [facility] [place], [address], 5 12:24:23 CBC w/ auto diff 2023 025 [email or web address] [facility], [address] [facility] [address], [place], [address], 5 15:38:34 CMP, serum or plasma 2023 025 [email or web address] [facility], [address] [facility] [address], [place], [address], 15:38:34 TSH + free T4, serum 2023 025 [email or web address] Correa [facility], [address] [facility] [place], [address], 11:25:29 iron + TIBC + ferrit in, serum 2023 024 KAELA [facility], [address] [facility] [address], [place], [address], 4 12:37:04 CBC w/ auto diff 2023 024 KAELA [facility], [address] [facility], [facility] [address], [place], [address], 4 12:37:03 TSH + free T4, serum 2023 024 KAELA [facility], [address] [facility], [facility] [address], [place], [address], 4 12:37:01 Referral None record ed. Procedures polyso mnogra phy, titrat ion study (PROC) 2024 025 [email or web address] [facility], [address] [facility] , [place], [address], 5 03:33:27 colono scopy screen ing (PROC) 2023 024 [email or web address] [facility], [address] [facility] , [address], [place], [address], 5 16:07:59 Surgeries None record ed. Imaging US, duplex , venous , lower extrem ity, unilat eral 2023 024 [facility], [address], [place], [address], 4 14:06:49 XR, knee, 3 view 2023 024 [facility] ([facility]), [address], [place], [address], 4 12:16:49 US, upper back 2023 024 [facility], Imaging Dept., [address] [facility] , [place], [address], 4 07:08:40 Medication Orders valacy clovir 1 gram tablet 2024 025 [facility], [address], [place], [address], 5 15:42:27 ergoca lcifer ol (vitam in D2) 1,250 mcg (50,00 0 unit) capsul e [facility]24 [facility], [address], [place], [address], 5 15:31:26 Euthyr ox 75 mcg tablet 2024 [facility] [address], [address] [place] [address], [place], [address], 5 15:29:37 Zepbou nd 2.5 mg/0.5 mL subcut aneous pen inject or 2024 [facility] [address], [address] [place] [address], [place], [address], 5 15:29:29 valacy clovir 1 gram tablet 2023 [facility] [address], [address] [place] [address], [place], [address], 5 15:22:37 Airsup ra 90 mcg-80 mcg/ac tuatio n HFA aeroso l inhale r 2023 [facility] [address], [address] [place], [place], [address], 4 15:29:15 metfor min ER 500 mg tablet ,exten ded releas e 24 hr 2023 [facility] [address], [address] [place] [address], [place], [address], 5 15:21:45 Patient TargetsNo targets recorded. Patient Instructions Encounter Date Encounter Id Patient Instructions Last Modified By Organization Details Last Modified Time 02/10/2024 [id number] A healthy lifestyle: care instructions Not available 02/10/2024 12:42:24 09/26/2024 [id number] A healthy lifestyle: care instructions Not available 09/26/2024 15:42:14 11/28/2024 [id number] A healthy lifestyle: care instructions Not available 11/28/2024 16:05:27 Reason for Referral None Reported. Results Created Date Observation Date Name Description Value Unit Range Abnormal Flag Note LastModifiedBy Organization Detail LastModifiedTime 01/06/2001/07/2024 TSH+F REE T4 TSH 1.680 uIU/m L 0.450- 4.500 Not Available [facility] ([facility]) [address] [facility], [place], [address], 01/07/2024 12:37:01 01/06/2001/07/2024 TSH+F REE T4 T4,free(dire ct) 0.98 NG/dL 0.82-1 .77 Not Available [facility] ([facility]) [address] [facility], [place], [address], 01/07/2024 12:37:01 01/06/2001/07/2024 HEMOG LOBIN A1C hemoglobin A1C 6.2 % 4.8-5. 6 above high normal Predi abete s: 5.7 - 6.4 Diabe seven: >6.4 Glyce rolando contr ol for adult s with diabe seven: <7.0 Not Available [facility] ([facility]) [address] [facility], [place], [address], 01/07/2024 12:37:02 01/06/20 24 01/07/2024 CBC WITH DIFFE RENTI AL/PL ATELE T WBC 5.7 x10e3 /uL 3.4-10 .8 Not Available [facility] ([facility]) [address] [facility], [place], [address], 01/07/2024 12:37:03 01/06/20 24 01/07/2024 CBC WITH DIFFE RENTI AL/PL ATELE T RBC 4.65 x10e6 /uL 3.77-5 .28 Not Available [facility] ([facility]) [address] [facility], [place], [address], 01/07/2024 12:37:03 01/06/20 24 01/07/2024 CBC WITH DIFFE RENTI AL/PL ATELE T hemoglobin 12.5 g/dL 11.1-1 5.9 Not Available [facility] ([facility]) [address] [facility], [place], [address], 01/07/2024 12:37:03 01/06/2001/07/2024 CBC WITH DIFFE RENTI AL/PL ATELE T hematocrit 39.5 % 34.0-4 6.6 Not Available [facility] ([facility]) [address] [facility], [place], [address], 01/07/2024 12:37:03 01/06/2001/07/2024 CBC WITH DIFFE RENTI AL/PL ATELE T MCV 85 fL 79-97 Not Available [facility] ([facility]) [address] [facility], [place], [address], 01/07/2024 12:37:03 01/06/2001/07/2024 CBC WITH DIFFE RENTI AL/PL ATELE T MCH 26.9 pg 26.6-3 3.0 Not Available [facility] ([facility]) [address] [facility], [place], [address], 01/07/2024 12:37:03 01/06/2001/07/2024 CBC WITH DIFFE RENTI AL/PL ATELE T MCHC 31.6 g/dL 31.5-3 5.7 Not Available [facility] ([facility]) [address] [facility], [place], [address], 01/07/2024 12:37:03 01/06/2001/07/2024 CBC WITH DIFFE RENTI AL/PL ATELE T RDW 14.3 % 11.7-1 5.4 Not Available [facility] ([facility]) [address] [facility], [place], [address], 01/07/2024 12:37:03 01/06/2001/07/2024 CBC WITH DIFFE RENTI AL/PL ATELE T platelets 209 x10e3 /uL 150-45 0 Not Available [facility] ([facility]) [address] [facility], [place], [address], 01/07/2024 12:37:03 01/06/2001/07/2024 CBC WITH DIFFE RENTI AL/PL ATELE T neutrophils 57 % notest ab. Not Available [facility] ([facility]) [address] [facility], [place], [address], 01/07/2024 12:37:03 01/06/2001/07/2024 CBC WITH DIFFE RENTI AL/PL ATELE T lymphs 34 % notest ab. Not Available [facility] ([facility]) [address] [facility], [place], [address], 01/07/2024 12:37:03 01/06/20 24 01/07/2024 CBC WITH DIFFE RENTI AL/PL ATELE T monocytes 6 % notest ab. Not Available [facility] ([facility]) [address] [facility], [place], [address], 01/07/2024 12:37:03 01/06/2001/07/2024 CBC WITH DIFFE RENTI AL/PL ATELE T eos 2 % notest ab. Not Available [facility] ([facility]) [address] [facility], [place], [address], 01/07/2024 12:37:03 01/06/20 24 01/07/2024 CBC WITH DIFFE RENTI AL/PL ATELE T basos 1 % notest ab. Not Available [facility] ([facility]) [address] [facility], [place], [address], 01/07/2024 12:37:03 01/06/2001/07/2024 CBC WITH DIFFE RENTI AL/PL ATELE T neutrophils (absolute) 3.3 x10e3 /uL 1.4-7. 0 Not Available [facility] ([facility]) [address] [facility], [place], [address], 01/07/2024 12:37:03 01/06/2001/07/2024 CBC WITH DIFFE RENTI AL/PL ATELE T lymphs (absolute) 1.9 x10e3 /uL 0.7-3. 1 Not Available [facility] ([facility]) [address] [facility], [place], [address], 01/07/2024 12:37:03 01/06/2001/07/2024 CBC WITH DIFFE RENTI AL/PL ATELE T monocytes(ab solute) 0.4 x10e3 /uL 0.1-0. 9 Not Available [facility] ([facility]) [address] [facility], [place], [address], 01/07/2024 12:37:03 01/06/20 24 01/07/2024 CBC WITH DIFFE RENTI AL/PL ATELE T eos (absolute) 0.1 x10e3 /uL 0.0-0. 4 Not Available [facility] ([facility]) [address] [facility], [place], [address], 01/07/2024 12:37:03 01/06/20 24 01/07/2024 CBC WITH DIFFE RENTI AL/PL ATELE T baso (absolute) 0.0 x10e3 /uL 0.0-0. 2 Not Available [facility] ([facility]) [address] [facility], [place], [address], 01/07/2024 12:37:03 01/06/20 24 01/07/2024 CBC WITH DIFFE RENTI AL/PL ATELE T immature granulocytes 0 % notest ab. Not Available [facility] ([facility]) [address] [facility], [place], [address], 01/07/2024 12:37:03 01/06/20 24 01/07/2024 CBC WITH DIFFE RENTI AL/PL ATELE T immature grans (abs) 0.0 x10e3 /uL 0.0-0. 1 Not Available [facility] ([facility]) [address] [facility], [place], [address], 01/07/2024 12:37:03 01/06/2001/07/2024 FE+TI BC+FE R iron bind.cap.(TI BC) 328 ug/dL 250-45 0 Not Available [facility] ([facility]) [address] [facility], [place], [address], 01/07/2024 12:37:03 01/06/2001/07/2024 FE+TI BC+FE R UIBC 261 ug/dL 131-42 5 Not Available [facility] ([facility]) [address] [facility], [place], [address], 01/07/2024 12:37:03 01/06/2001/07/2024 FE+TI BC+FE R iron 67 ug/dL 27-159 Not Available [facility] ([facility]) [address] [facility], [place], [address], 01/07/2024 12:37:03 01/06/2001/07/2024 FE+TI BC+FE R iron saturation 20 % 15-55 Not Available [facility]) [address] [facility], [place], [address], 01/07/2024 12:37:03 01/06/2001/07/2024 FE+TI BC+FE R ferritin 40 NG/mL 15-150 Not Available [facility] ([facility]) [address] [place], [address], 01/07/2024 12:37:03 09/08/19 24 09/06/2023 US, upper back No observ ation record ed. [email or web address] [address] [place], [address], 09/09/2023 16:43:49 09/22/19 24 09/22/2023 MRI, thora cic spine , w/wo contr ast No observ ation record ed. [address] [place], [address], 09/22/2023 15:54:34 02/10/20 24 02/10/2024 US, duple x, venou s, lower extre mity, unila teral No observ ation record ed. [facility] [address], [place], [address], 02/10/2024 17:10:00 02/11/20 24 02/10/2024 XR, knee, 3 view No observ ation record ed. [facility] ([facility]) [address], [place], [address], 02/18/2024 14:00:26 05/20/19 25 05/16/2024 XR, chest , 2 view No observ ation record ed. [email or web address] [address] [place], [address], 05/29/2024 12:48:49 01/17/20 25 01/15/2025 MAMMO , scree saul, digit al, bilat eral No observ ation record ed. [email or web address] [facility] [address], [place], [address], 01/16/2025 13:50:33 03/01/20 25 03/01/2025 NM, bone scan, whole body No observ ation record ed. [address] [place], [address], 03/05/2025 09:57:21 Result Notes None recorded. Problems Name Problem SNOMED Code Status Onset Date Resolution Date Notes Provider Name and Address Organization Details Recorded Time Obstructive sleep apnea syndrome 43611756 Active 2023 KIMBERLY Moore Attn: Garrison g,[address], [place], [address], [place] - [facility] 5 16:59:38 Hypothyroidism 48054414 Active 2023 Elaine Godoy null, [place] [facility] 4 16:44:39 Polycystic ovary syndrome 597097262 Active 2023 Elaine God[place] [facility] 4 16:44:45 Hyperlipidemia 92521091 Active 2023 Elaine God[place] [facility] 4 16:44:53 Vitamin D deficiency 01555490 Active 2023 Elaine God[place] [facility] 4 16:45:02 Body mass index 40+ - severely obese 835020014 Active 2023 Elba Barrios [place] null, [place] - [facility] 4 12:19:35 Obesity 396425222 Active 2023 KIMBERLY Moore Attn: Garrison dominguez,[address] [place], [address], [place] [facility] 4 12:29:02 Long-term drug therapy Active 2023 KIMBERLY Moore Attn: Garrison dominguez,[address] [place], [address], [place] - [facility] 4 11:46:55 Obese class III 478757810 Active 2024 KIMBERLY Moore Attn: Garrison dominguez,[address] [place], [address], [place] [facility] 5 15:42:03 Prediabetes 048108898 Active 2024 KIMBERLY Moore Attn: Garrison g,[address] [place], [address], [place] - [facility] 5 15:42:04 Herpes labialis 1287098 Active 2024 KIMBERLY Moore Attn: Garrison dominguez,[address] [place], [address], [facility] 5 15:42:08 Problem Notes None recorded. Procedures Surgical History Date Name Laterality Status Provider Name and Address Organization Details Recorded Time Knee Surgery completed Elba Barrios MA [facility] 07/13/2023 11:42:40 Tonsillectomy completed Elba Barrios MA [facility] 07/13/2023 11:42:47 vaginal section completed Elba Barrios MA [facility] 07/13/2023 11:43:05 D & c after delivery completed Elba Barrios MA [facility] 07/13/2023 11:43:11 Imaging Results None recorded. Procedure Notes None recorded. Medical Equipment None Reported. Allergies Allergen ID Allergen Name Allergen Category Reaction Reaction Severity Criticality Documentation Date Start Date Code Code System Note Provider Name and Address Organization Details Recorded Time 162938 wheat gluten extract food Not available Not available Not available 07/13/2023 99329 81 RxNorm Elba Barrios MA null, [facility] 4 11:42:22 470919 Gluten (substanc e) food,medi cation hives Not available high 01/22/20252013 90668 004 SNOMED Not Available kaela - External Data Service - prod 11:29:27 Medications Name Sig Start Date Stop Date Status Note LastModified by Organization Details LastModified Time amoxicillin 500 mg capsule TAKE 1 CAPSULE BY MOUTH TWICE DAILY FOR 10 DAYS active Not Available Not Available No t Available clotrimazol e 10 mg clemente Take by mucous mem route for 14 days. 02/09 completed Not Available Not Available Not Available doxycycline hyclate 100 mg capsule Take 1 capsule twice a day by oral route. 09/26 completed Not Available Not Available Not Available azithromyci n 250 mg tablet TAKE 2 TABLETS (500 MG) BY ORAL ROUTE ONCE DAILY FOR 1 DAY THEN 1 TABLET (250 MG) BY ORAL ROUTE ONCE DAILY FOR 4 DAYS 09/26 completed Not Available Not Available Not Available fluconazole 150 mg tablet TAKE 1 TABLET BY MOUTH ONCE DAILY FOR 1 DAY 05/25 completed Not Available Not Available Not Available benzonatate 200 mg capsule TAKE 1 CAPSULE BY MOUTH THREE TIMES DAILY 09/26 completed Not Available Not Available Not Available valacyclovi r 1 gram tablet TAKE 2 TABLETS BY MOUTH EVERY 12 HOURS NEEDED FOR 1 DAY active Not Available Not Available No t Available meloxicam 15 mg tablet TAKE 1 TABLET BY MOUTH ONCE DAILY WITH MEALS 2024 active Not Available Not Available Not Avai lable ondansetron HCl 4 mg tablet TAKE 1 TABLET BY MOUTH EVERY 6 HOURS NEEDED FOR NAUSEA 05/25 completed Not Available Not Available Not Available prednisone 20 mg tablet TAKE 2 TABLETS BY MOUTH ONCE DAILY 09/26 completed Not Available Not Available Not Available oxycodone 5 mg/5 mL oral solution TAKE 5 ML (5 MG) BY MOUTH EVERY 4 HOURS NEEDED (3RD LINE PAIN MEDICATIO N) 05/25 completed Not Available Not Available Not Available meclizine 12.5 mg tablet Take by oral route for 10 days. 09/26 completed Not Available Not Available Not Available ciprofloxac in 500 mg tablet TAKE 1 TABLET BY MOUTH EVERY 12 HOURS 05/25 completed Not Available Not Available Not Available sulfamethox azole 800 mg-trimetho prim 160 mg tablet TAKE 1 TABLET BY MOUTH EVERY 12 HOURS 02/27 completed Not Available Not Available Not Available tramadol 50 mg tablet TAKE 1 TABLET BY MOUTH EVERY 6 HOURS NEEDED FOR PAIN 05/25 completed Not Available Not Available Not Available levothyroxi ne 75 mcg tablet Take 1 tablet every day by oral route for 90 days. active Not Available Not Available No t Available amoxicillin 875 mg tablet TAKE 1 TABLET BY MOUTH TWICE DAILY FOR 10 DAYS 07/12 completed Not Available Not Available Not Available cephalexin 500 mg capsule TAKE 1 CAPSULE BY MOUTH THREE TIMES DAILY 05/25 completed Not Available Not Available Not Available metformin 1,000 mg tablet TAKE 1 TABLET BY MOUTH ONCE DAILY 07/12 completed Not Available Not Available Not Available ergocalcife rol (vitamin D2) 1,250 mcg (50,000 unit) capsule Take 1 capsule every week by oral route for 84 days. active Not Available Not Available No t Available methylpredn isolone 4 mg tablets in a dose pack TAKE DIRECTED 05/25 completed Not Available Not Available Not Available albuterol sulfate HFA 90 mcg/actuati on aerosol inhaler INHALE 2 PUFFS BY MOUTH 4 TIMES DAILY active Not Available Not Available No t Available ondansetron 4 mg disintegrat ing tablet Place as needed by oral route for 4 days. active Not Available Not Available No t Available cefdinir 300 mg capsule TAKE 1 CAPSULE BY MOUTH EVERY 12 HOURS active Not Available Not Available No t Available metformin ER 500 mg tablet,exte nded release 24 hr TAKE 2 TABLETS BY MOUTH DAILY WITH DINNER 09/26 completed Not Available Not Available Not Available amoxicillin 875 mg-potassiu m clavulanate 125 mg tablet TAKE 1 TABLET BY MOUTH TWICE DAILY FOR 10 DAYS 05/25 completed Not Available Not Available Not Available acyclovir 5 % topical cream APPLY TO THE AFFECTED AREAS BY TOPICAL ROUTE 5 TIMES PER DAY NEEDED 02/09 completed Not Available Not Available Not Available Airsupra 90 mcg-80 mcg/actuati on HFA aerosol inhaler Inhale 2 inhalatio ns 3 times a day by inhalatio n route as needed. 2023 active Not Available Not Available Not Avai lable Zepbound 2.5 mg/0.5 mL subcutaneou s pen injector Inject by subcutane ous route for 28 days. active Not Available Not Available No t Available Vitals Date Recorded Body height Body mass index (BMI) Body weight Respiratory rate Heart rate Oxygen saturation Systolic And Diastolic Provider Name and Address Organization Details Last Updated DateTime 4 170.18 cm 49.3 kg/m2 253905. 6 g 18 /min 86 /min 98 % 112/68 mm[Hg] Elba Barrios MA [facility] 4 10:58:07 Date Recorded Respiratory rate Systolic And Diastolic Provider Name and Address Organization Details Last Updated DateTime 09/26/2024 18 /min 120/80 mm[Hg] KIMBERLY Moore Attn: Accounting,[address], [place], [address], [facility] 09/26/2024 15:43:55 Date Recorded Body height Body mass index (BMI) Body weight Oxygen saturation Heart rate Systolic And Diastolic Provider Name and Address Organization Details Last Updated DateTime 5 170.18 cm 47.9 kg/m2 463165. 27 g 99 % 91 /min 108/82 mm[Hg] Elba Barrios MA [facility] 5 15:26:01 Date Recorded Systolic And Diastolic Provider Name and Address Organization Details Last Updated DateTime 11/28/2024 122/82 mm[Hg] KIMBERLY Moore Attn: Accounting,[address] [place], [address], [facility] 11/28/2024 16:02:39 Date Recorded Body height Body mass index (BMI) Body weight Respiratory rate Oxygen saturation Heart rate Systolic And Diastolic Provider Name and Address Organization Details Last Updated DateTime 170.18 cm 49.3 kg/m2 186226. 6 g 18 /min 97 % 77 /min 116/82 mm[Hg] Elba Barrios [place] - [facility] 15:34:47 Date Recorded Systolic And Diastolic Provider Name and Address Organization Details Last Updated DateTime 02/10/2024 130/80 mm[Hg] KIMBERLY Moore Attn: Accounting,[address] [place], [address], [facility] 02/10/2024 12:43:18 Date Recorded Body height Body mass index (BMI) Body weight Respiratory rate Oxygen saturation Heart rate Systolic And Diastolic Provider Name and Address Organization Details Last Updated DateTime 4 170.18 cm 47.3 kg/m2 614126. 9 g 18 /min 98 % 78 /min 130/82 mm[Hg] Elba Barrios MA [facility] 4 12:26:53 Date Recorded Body temperature Systolic And Diastolic Provider Name and Address Organization Details Last Updated DateTime 02/28/2024 98 [degF] 110/70 mm[Hg] KIMBERLY Moore Attn: Accounting,[address] [place], [address], [facility] 02/28/2024 15:30:39 Date Recorded Body height Body mass index (BMI) Body weight Respiratory rate Oxygen saturation Heart rate Systolic And Diastolic Provider Name and Address Organization Details Last Updated DateTime 4 170.18 cm 47.5 kg/m2 141476. 49 g 18 /min 99 % 84 /min 126/82 mm[Hg] Elba Barrios [place] - [facility] 15:18:41 Social History Question Answer Notes LastModified by Organizat ion Details LastModified Time Tobacco Smoking Status Former Smoker Elba Barrios [place] null, [place] - [facility] 07/13/2023 10:50:18 Are You Blind Or Do You Have Difficulty Seeing? No Information not available 07/13/2023 What Is Your Level Of Caffeine Consumption? Moderate Information not available 07/13/2023 In The 14 Days Before Symptom Onset, Have You Had Close Contact With A Laboratory-confir med COVID-19 While That Case Was Ill? No Information not available 07/13/2023 In The 14 Days Before Symptom Onset, Have You Had Close Contact With A Person Who Is Under Investigation For COVID-19 While That Person Was Ill? No Information not available 07/13/2023 Have You Been To An Area Known To Be High Risk For COVID-19? No Information not available 07/13/2023 Are You Deaf Or Do You Have Serious Difficulty Hearing? No Information not available 07/13/2023 What Type Of Diet Are You Following? GLUTENFREE Low Carb/keto Diet Information not available 07/13/2023 Are There Any Guns Present In Your Home? No Information not available 07/13/2023 What Was The Date Of Your Most Recent Tobacco Screening? 11/28/2024 Information not available 11/28/2024 What Is Your Current Pack Years? 10packyears Information not available 07/13/2023 Do You Use Your Seat Belt Or Car Seat Routinely? Yes Information not available 07/13/2023 Do You Have Smoke And Carbon Monoxide Detectors In Your Home? Yes Information not available 07/13/2023 At What Age Did You Start Smoking Tobacco? 17 Information not available 07/13/2023 How Much Tobacco Do You Smoke? No Information not available 07/13/2023 Do You Use Sunscreen Routinely? Yes In Makeup Information not available 07/13/2023 Has Tobacco Cessation Counseling Been Provided? Yes Information not available 07/13/2023 On What Date Was Tobacco Cessation Counseling Provided? 11/28/2024 Information not available 11/28/2024 How Many Years Have You Smoked Tobacco? 5 Information not available 07/13/2023 Sex: Female Functional Status Question Answer Note LastModified by Organizat ion Details LastModified Time Do you use any illicit or recreational drugs? No Information not available 07/13/2023 Do you or have you ever used any other forms of tobacco or nicotine? No Information not available 07/13/2023 What is your level of alcohol consumption? None Information not available 07/13/2023 Are you able to care for yourself independently? Yes Information not available 07/13/2023 Mental Status None recorded. Family History Nothing Reported. Medical History Condition Response Coronary Artery Disease N Other N Atrial Fibrillation N High Blood Pressure N Thyroid Problems Y Kidney or Bladder Problems N Depression N COPD N Blood Clots N GI Problems N Skin Problems N Anemia N Heart Attack (MA) N Diabetes N Anxiety Disorder N Muscle, Joint, or Bone Problems N Seizures/Epilepsy N Acid Reflux (GERD) N Cancer N Stroke N Allergies N Asthma N High Cholesterol N Hepatitis N Liver Disease N Headaches N Osteoporosis N Heart Failure N Gynecological History Statement/Question Response Flow Light Date of LMP 11/20/2024 Frequency of Cycle (Q days) 28 Menses Monthly Y Duration of Flow (days) 4 Current Control Method None LMP Definite Obstetrics History GPAL:G 2 P 2 0 3 2 Type Value Multiple Births 0 Full Term 2 Spontaneous 3 Premature 0 Living 2 Total 2 Immunizations Vaccine Type Date Status Note Provider Nam e and Address Organization Details Recorded Time COVID-19 vaccine, vector-nr, rS-Ad26, PF, 0.5 mL 12/02/2020 completed JAZMÍN Ven[place], [place] - [facility] 02/09/2024 12:55:22 Tdap 04/23/2018 completed JAZMÍN [place], [place] [facility] 02/09/2024 12:55:22 Past Encounters Encounter ID Performer Location Encounter Start Date Encounter Closed Date Diagnosis/Indication Diagnosis SNOMED-CT Code Diagnosis ICD10 Code Diagnosis IMO Codes Diagnosis Note [id number] Sivakumar Zhao MD [facility] [employer] [address] [place] [address] 07/13/2023 10:34:56 07/13/2023 11:25:09 Adult health examination 881745487 Z00.01 wellness exam completed. she has many [facility] Screening for malignant neoplasm of colon 629365947 Z12.11 refer for baseline colonoscop y screening. Obstructiv e sleep apnea syndrome 50935108 G47.33 tonsillect caty completed last summer. she did home sleep study, moderate case. still to schedule a cpap titration in lab. Prediabetes 093147887 R7 3.03 5.9% on labs. Polycystic ovary syndrome 800473530 E28.2 hx noted. Hypothyroidism 04452672 E03.9 on thyroid supplement . due for labs in july Vitamin D deficiency 347 27531 E55.9 on high dose weekly Rx. Long-term drug therapy 300253882 Z79.899 Dizziness 974288836 R42 screening iron studies and cbc. pt feels she may be anemic that is causing some dizziness. Mass of shaikh bcutaneous tissue of back 5455352710 72675 R22.2 check u/s of fatty density left upper back. [id number] Sivakumar Zhao MD [facility] [employer] [address] [place] [address] 02/10/2024 11:55:04 02/10/2024 13:03:30 Body mass index 40+ - severely obese 551656773 Z68.42 bmi 47.3 Obesity 469248429 E66.9 discussed healthy diet, exercise, controllin g carbohydra seven and added sugars in the diet Obstructiv e sleep apnea syndrome 91339556 G47.33 tonsillect caty completed last summer. she did home sleep study, moderate case. still to schedule a cpap titration in lab. Prediabetes 886853971 R7 3.03 6.2% on labs. Restart metformin ER 500 mg 2 tablets with dinner and then repeat A1c and fasting insulin labs in June Polycystic ovary syndrome 380399463 E28.2 hx noted. Hypothyroidism 09881385 E03.9 on thyroid supplement . due for labs again in June. Vitamin D deficiency 347 44444 E55.9 on high dose weekly Rx. Long-term drug therapy 054157954 Z79.899 CBC and CMP due in june labs Pain of left calf 890522 6510 793466 M79.662 refer for STAT venous duplex LLE. r/o DVT Injury of knee 674287547 S89.92XA refer for xrays left knee after injury. [id number] Sivakumar Zhao MD [facility] [employer] [address] [place] [address] 09/26/2024 15:15:50 09/26/2024 15:47:57 Vitamin D deficiency 52246134 E55.9 on high dose weekly Rx. Refill provided Hypothyroidism 69473223 E03.9 on thyroid supplement . Labs are stable. Refill medication Herpes labialis 4411734 B00.1 refill valtrex needed. Obese class III 70782447 5 E66.813 9569448049 bmi 47.9. start zepbound injectable therapy. no personal or family hx of Medullary thyroid cancer or MEN conditions . Prediabetes 061862928 R7 3.03 5.9% a1c Obstructiv e sleep apnea syndrome 92044294 G47.33 tonsillect caty completed last summer. she did home sleep study, moderate case obstructiv e sleep apnea. She would be a candidate for Zepbound therapy with the indication for obstructiv e sleep apnea and morbid obesity Polycystic ovary syndrome 264411305 E28.2 hx noted. Long-term drug therapy 601234787 Z79.899 Labs reviewed Abnormal weight gain 161 433031 R63.5 39881 Patient request cortisol level testing Adult [facility] examination 139172527 Z00.00 1054692 wellness exam completed. [id number] Sivakumar Zhao MD [facility] [employer] [address] [place] [address] 02/28/2024 15:09:34 02/28/2024 16:23:19 Herpes labialis 3416466 B00.1 refill valtrex needed. Upper resp iratory infection 46814433 J06.9 continue doxy 100mg bid course and finish prednisone 40mg last day dose tomorrow. Cough 09533161 R05.9 start Airsupra as directed. and Delsym OTC [id number] Sivakumar hZao MD [facility] [address] [place] [address] 11/28/2024 15:08:15 11/28/2024 16:27:50 Obese class III 816176154 E66.813 E66.3 7929763792 bmi 49.3 Obstructiv e sleep apnea syndrome 57659348 G47.33 [id number] tonsillect caty completed last summer. she did home sleep study, moderate case obstructiv e sleep apnea. She would be a candidate for Zepbound therapy with the indication for obstructiv e sleep apnea and morbid obesity. She will need an in-lab CPAP sleep study with titration Hypothyroidism 69851716 E03.9 on thyroid supplement . Labs are stable. Prediabetes 806068495 R7 3.03 5.9% a1c Preprocedu ral examination done 9316569615 09295 Z01.818 759581 Preop exam completed Health Concerns Section Related Observation LastModified by Organization Detai ls LastModified Time None Recorded Concern Status LastModified by Organization Details LastModified Time None Recorded Advance Directives Directive None Recorded Payers Insurance Date Sequence Insurance Name Policy Number Policy Dangelo Covered Member ID Dangelo Member ID Guarantor Name 12/18/2024 1 [place] [id number] Christel Anterhaus [id number] Christel Anterhaus 09/26/2024 1 [id number] Christel Anterhaus [id number] Christel Anterhaus Notes Date Note Type Note Provider Name and Address Organization Details Recorded Time 4 text/html DizzinessReported by PatientHPIFor quality, patient reportscannot identifyandlightheadednes s. For severity, patient reportsno effect on daily activities. For duration, patient reportsintermittent episodes lasting:andlasts <5 minutes. For context, patient reportsnon-smoker. For modifying factors, patient reportsgoing from sit to stand,change in position, andrapid movements. For alleviating factors, patient reportsholding still. For aggravating factors, patient reportsmoving headandpositional change. For associated symptoms, patient reportsno double vision,no slurred speech,no blurred vision,no vision changes,no foggy vision,no blindness,no spots in field of vision,no eye pain,no hearing loss,no ringing in the ears,no syncope,no nausea,no vomiting,no history of falls, andno history of diabetes. Obstructive Sleep Apnea F/UReported by Patienttonsillectomy completed last summer. she did home sleep study, moderate case. still to schedule a cpap titration in lab. ThyroidReported by Patienton thyroid supplement. due for labs. Pt. states she had a ear infection 10 days ago wants to make sure everything is ok, Would also like to discuss labs, Pt. states that her blood pressure has been low states that she has been dizzy when she stands/ states that the Metformin makes her blood pressure drop. KIMBERLY Moore Attn: Accounting,[address], [place], [address], [place] [facility] 07/27/2023 18:53:37 4 text/html Obstructive Sleep Apnea F/UReported by Patienttonsillectomy completed last summer. she did home sleep study, moderate case. still to schedule a cpap titration in lab. ThyroidReported by Patienton thyroid supplement. due for labs. Prediabetes insulin resistance polycystic ovarian history. Patient is interested in getting back on metformin therapy. He is also due for updated labs KIMBERLY Moore Attn: Accounting,[address], [place], [address], [place] [facility] 02/26/2024 11:47:55 4 text/html Upper Respiratory SymptomsReported by PatientUpper Respiratory SymptomsFor quality, patient reportshacking coughanddry cough. For associated symptoms, patient reportswheezingbut reportsno sputum productionandno shortness of breath. For location, patient reportschest. For severity, patient reportsmoderate. For duration, patient reportssymptoms lasting over 2 weeks. For context, patient reportsno sick contacts,no foreign travel, andnon-smoker.Pt reports she has been taking the doxycyline and prednisone that were ordered on Wednesday, still has hoarse cough and feels she has gotten worse, cough-brunson. The yellow drainage, runny nose, and fever are resolved. However she now feels wheezy in her lungs when she exhales, lungs feel heavy, and the cough is deep and no longer productive. Pt reports her back itches with coughing. She has taken theraflu, robitussin, vitamin C, Zinc, Lemon and honey in echinacea tea, vicks on chest otc KIMBERLY Moore Attn: Accounting,[address], [place], [address], [place] [facility] 02/28/2024 15:41:52 5 text/html Obstructive Sleep Apnea F/UReported by Patienttonsillectomy completed last summer. she did home sleep study, moderate case. still to schedule a cpap titration in lab. ThyroidReported by Patienton thyroid supplement. Labs are up-to-date. On levothyroxine 75 mcg daily stable with no complaints Prediabetes insulin resistance polycystic ovarian history. Fasting insulin is upper limit of normal at 22. Thyroid function testing is normal, A1c 5.9% indicating prediabetes. KIMBERLY Moore Attn: Accounting,[address], [place], [address], [place] [facility] 10/16/2024 08:29:47 5 text/html Obstructive Sleep Apnea F/UReported by Patienttonsillectomy completed last summer. she did home sleep study, moderate case. still to schedule a cpap titration in lab. ThyroidReported by Patienton thyroid supplement. Labs are up-to-date. On levothyroxine 75 mcg daily stable with no complaints Prediabetes insulin resistance polycystic ovarian history. Fasting insulin is upper limit of normal at 22. Thyroid function testing is normal, A1c 5.9% indicating prediabetes. KIMBERLY Moore Attn: Accounting,[address], [place], [address], [place] [facility] 12/17/2024 17:01:22 OBGyn Episode No OBEpisode recorded.
--- OUTSIDE RECORDS SUMMARY | 2025-03-17 17:49 | XMS_ITS | Clinical Summary ---
Author Organization [facility] [place] Address [address] [place] [address] Care Team Providers Care Gin Clerk Name Role Phone Unavailable Primary Care Provider Unavailabl e Source Comments [facility],non-owned Affiliates and Associated Physician Practices is amultiple site organization consisting of ambulatory clinics and hospital sitesin [place], [place], [place] and [place]. This disclosure is being madepursuant to the Care Everywhere program and may not contain all information available regarding this patient. 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 Gender Identity Not on file Sexual Orientation Not on file Plan of Treatment Health Maintenance Due Date Last Done Comments COLOGUARD (AGES 45-75) - COL ON CA SCREENING 1976 COLON MONITORING 1976 COLONOSCOPY - COLON CA SCREENING 1976 CT COLONOGRAPHY - COLON CA SCREENING 1976 Colorectal Cancer Screening 1976 FIT - COLON CA SCREENING 1976 FLEX SIG - COLON CA SCREENING 1976 LIPID TESTING 1976 MAMMOGRAM 1976 HIV SCREENING 06/24/1991 HEPATITIS C SCREENING 06/19/1994 DTAP/TDAP/TD VACCINES (1 - Tdap) 06/24/1995 HEPATITIS B VACCINE (1 of 3 - 19+ 3-dose series) 06/24/1995 DEPRESSION SCREENING 03/29/2024 COVID-19 VACCINE (1 - 2024-2 6 season) 2024 INFLUENZA VACCINE (#1) 2024 03/04/2012 ZOSTER VACCINE (1 of 2) 2026 HIB VACCINE Aged Out No longer eligi ble based on patient's age to complete this topic HPV VACCINE Aged Out No longer eligi ble based on patient's age to complete this topic MENINGOCOCCAL (Group B) VACC INE SHARED DECISION-MAKING Aged Out No longer eligibl e based on patient's age to complete this topic MENINGOCOCCAL GROUPS A/C/Y/W VACCINE Aged Out No longer eligible b ased on patient's age to complete this topic PNEUMOCOCCAL VACCINE Aged Out No long er eligible based on patient's age to complete this topic Insurance DR [id number] [facility]
--- OUTSIDE RECORDS SUMMARY | 2025-03-17 17:49 | XMS_ITS | Encounter Summary ---
Author Organization [facility] Address [address] [place] [address] Care Team Providers Care Copra Processor Name Role Phone MichelleAlcides linncaprice HARRIS Primary Care Pr ovider Lisa Amato Unavailable [phone] Reason for Visit * Auth/Cert (Routine) Specialty Diagnoses / Procedures Referred By Kwabena t Referred To Contact Diagnoses Encounter for screening colonoscopy Encounter for screening colonoscopy [Z12.11] Procedures ND COLONOSCOPY FLX DX W/COLLJ SPEC WHEN PFRMD COLONOSCOPY Referral ID Status Reason Start Date Expiration Date Visits Re quested Visits Authorized [id number] 1 1 Encounter Details Date Type Department Care Team (Late st Contact Info) Description 04/03/2024 Hospital Encounter [facility] [address] [place] [address] Love Parks MD [address] [place] [address] DR SIMPSON [address] [place] [id number] Social History Tobacco Use Types Packs/Day Years [...] on file Legal Sex Female 10:54 AM 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 Gender Identity Not on file Sexual Orientation Not on file documented as of this encounter Plan of Treatment Not on file documented as of this encounter Visit Diagnoses Diagnosis Encounter for screening colonoscopy- Primary documented in this encounter Admitting Diagnoses Diagnosis Encounter for screening colonoscopy documented in this encounter Care Teams Copra Processor Relationship Specialty Start Date End Date Jessica Lopez PA PCP - General 10/10/18 Lisa Amato PA [address] SIMPSON [address] [place] [id number] Physician Director Of Content Marketing Orthopedic Surgery 11/30/24 documented as of this encounter
--- OUTSIDE RECORDS SUMMARY | 2025-03-17 17:49 | XMS_ITS | Data Portability ---
Author Organization [place] [facility], Main Office Address [address] [place] [address] Assessment No assessment recorded. Plan of Treatment Reminders Order Date Submit Date Provider Last Modified By Organization Details Last Modified Time Details Appointments None recorded. Lab HbA1c (hemoglobin A1c), blood 2022 023 [facility] 146 Not available 16:13:58 CMP, serum or plasma 2022 023 [facility] 146 Not available 3 16:13:59 CBC w/ auto diff 2022 023 [facility] Not available 3 11:26:22 lipid panel, serum 2022 023 [facility] 146 Not available 3 16:13:58 TSH + free T4, serum 2022 023 [facility] 146 Not available 3 16:13:58 Referral None recorded. Procedures None recorded. Surgeries None recorded. Imaging None recorded. Medication Orders amoxicillin 875 mg-potassiu m clavulanate 125 mg tablet [address] [facility] [address] [facility], [address], [place], [address], 3 16:11:34 prednisone 20 mg tablet [address] [facility], [address], [place], [address], 3 13:29:47 Patient TargetsNo targets recorded. Patient InstructionsNo instructions recorded. Reason for Referral None Reported. Results Created Date Observation Date Name Description Value Unit Range Abnormal Flag Note LastModifiedBy Organization Detail LastModifiedTime 12/24/19 21 12/26/2020 ESTRA DIOL estradiol 72 pg/mL normal Refer ence Range Folli cular Phase : 19-14 4 Mid-C ycle: 64-35 7 Lutea l Phase : 56-21 4 Postm enopa usal: < or = 31 Refer ence range estab lishe d on post- puber beto patie nt popul ation . No pre-p ubert al refer ence range estab lishe d using this assay . For any patie nts for whom low Estra diol level s are antic ipate d (e.g. males , pre-p ubert al child anna and hypog onada l/pos t-men opaus al femal es), the [facility] Estra diol, Ultra sensi tive, LCMSM S assay is recom rodger arroyo (orde r code 94870 ). Pleas e note: patie nts being treat ed with the drug fulve stran t (Fasl odex( R)) have demon strat ed signi fican t inter feren ce in immun oassa y metho ds for estra diol measu remen t. The cross react ivity could lead to false ly eleva roz estra diol test resul ts leadi ng to an inapp ropri ate clini estefany asses sment of estro gen statu s. [facility] order code [id number] -Estr adiol , Ultra sensi tive LC/MS /MS demon strat es negli gible cross react ivity with fulve stran t. Not Available [facility] [address], [place], [address], 12/26/2020 16:59:29 12/24/19 21 12/26/2020 PROGE STERO NE progesterone <0.5 NG/mL normal Refer ence Range s Femal e Folli cular Phase < 1.0 Lutea l Phase 2.6-2 1.5 Post menop ausal < 0.5 Pregn tobias 1st Trime ster 4.1-3 4.0 2nd Trime ster 24.0- 76.0 3rd Trime ster 52.0- 302.0 Not Available [address], [address], 12/26/2020 16:59:28 12/24/19 21 12/26/2020 INSUL IN insulin 22.4 uIU/m L high Refer ence Range < or = 19.6 Risk: Optim al < or = 19.6 Moder ate NA High >19.6 Adult cardi ovasc ular event risk categ ory cut point s (opti mal, moder ate, high) are based on [facility] popul ation data from 03/17 11. This insul in assay shows stron g cross -reac tivit y for some insul in analo gs (lisp ro, aspar t, and glarg ine) and much lower cross -reac tivit y with other s (dete hamzah, gluli sine) . Not Available [address], [address], 12/26/2020 16:59:28 12/24/19 21 12/26/2020 REFLE XIVE URINE CULTU RE reflexive urine culture NO CULTU RE INDIC ATED Not Available [address], [address], 12/26/2020 16:59:27 12/24/19 21 12/26/2020 URINA LYSIS , COMPL ETE W/REF JULIUS TO CULTU RE color yellow yellow normal Not Available [address], [address], 12/26/2020 16:59:27 12/24/19 21 12/26/2020 URINA LYSIS , COMPL ETE W/REF JULIUS TO CULTU RE appearance clear clear normal Not Available [address], [address], 12/26/2020 16:59:27 12/24/19 21 12/26/2020 URINA LYSIS , COMPL ETE W/REF JULIUS TO CULTU RE specific gravity 1.026 1.001- 1.035 normal Not Available [address], [address], 12/26/2020 16:59:27 12/24/19 21 12/26/2020 URINA LYSIS , COMPL ETE W/REF JULIUS TO CULTU RE pH < or = 5.0 5.0-8. 0 normal Not Available [address], [address], 12/26/2020 16:59:27 12/24/19 21 12/26/2020 URINA LYSIS , COMPL ETE W/REF JULIUS TO CULTU RE glucose negati ve negati ve normal Not Available [address], [address], 12/26/2020 16:59:27 12/24/19 21 12/26/2020 URINA LYSIS , COMPL ETE W/REF JULIUS TO CULTU RE bilirubin negati ve negati ve normal Not Available [address], [address], 12/26/2020 16:59:27 12/24/19 21 12/26/2020 URINA LYSIS , COMPL ETE W/REF JULIUS TO CULTU RE ketones negati ve negati ve normal Not Available [address], [address], 12/26/2020 16:59:27 12/24/19 21 12/26/2020 URINA LYSIS , COMPL ETE W/REF JULIUS TO CULTU RE occult blood negati ve negati ve normal Not Available [address], [address], 12/26/2020 16:59:27 12/24/19 21 12/26/2020 URINA LYSIS , COMPL ETE W/REF JULIUS TO CULTU RE protein negati ve negati ve normal Not Available [address] [place], [address], 12/26/2020 16:59:27 12/24/19 21 12/26/2020 URINA LYSIS , COMPL ETE W/REF JULIUS TO CULTU RE nitrite negati ve negati ve normal Not Available [address] [address] [place], [address], 12/26/2020 16:59:27 12/24/19 21 12/26/2020 URINA LYSIS , COMPL ETE W/REF JULIUS TO CULTU RE leukocyte esterase negati ve negati ve normal Not Available [address], [address], 12/26/2020 16:59:27 12/24/19 21 12/26/2020 URINA LYSIS , COMPL ETE W/REF JULIUS TO CULTU RE WBC none seen /hpf < or = 5 normal Not Available [address] [address] [place], [address], 12/26/2020 16:59:27 12/24/19 21 12/26/2020 URINA LYSIS , COMPL ETE W/REF JULIUS TO CULTU RE RBC none seen /hpf < or = 2 normal Not Available [address] [address] [place], [address], 12/26/2020 16:59:27 12/24/19 21 12/26/2020 URINA LYSIS , COMPL ETE W/REF JULIUS TO CULTU RE squamous epithelial cells 6-10 /hpf < or = 5 abnormal Not Available [address] [address] [place], [address], 12/26/2020 16:59:27 12/24/19 21 12/26/2020 URINA LYSIS , COMPL ETE W/REF JULIUS TO CULTU RE bacteria none seen /hpf none seen normal Not Available [address] [address] [place], [address], 12/26/2020 16:59:27 12/24/19 21 12/26/2020 URINA LYSIS , COMPL ETE W/REF JULIUS TO CULTU RE hyaline cast none seen /lpf none seen normal Not Available [address], [address], 12/26/2020 16:59:27 12/24/19 21 12/26/2020 CBC (INCL UDES DIFF/ PLT) white blood cell count 5.7 thous and/u L 3.8-10 .8 normal Not Available [address], [address], 12/26/2020 16:59:26 12/24/19 21 12/26/2020 CBC (INCL UDES DIFF/ PLT) red blood cell count 4.75 vannesa on/uL 3.80-5 .10 normal Not Available [address], [address], 12/26/2020 16:59:26 12/24/19 21 12/26/2020 CBC (INCL UDES DIFF/ PLT) hemoglobin 12.6 g/dL 11.7-1 5.5 normal Not Available [address], [address], 12/26/2020 16:59:26 12/24/19 21 12/26/2020 CBC (INCL UDES DIFF/ PLT) hematocrit 39.7 % 35.0-4 5.0 normal Not Available [address], [address], 12/26/2020 16:59:26 12/24/19 21 12/26/2020 CBC (INCL UDES DIFF/ PLT) MCV 83.6 fL 80.0-1 00.0 normal Not Available [address], [address], 12/26/2020 16:59:26 12/24/19 21 12/26/2020 CBC (INCL UDES DIFF/ PLT) MCH 26.5 pg 27.0-3 3.0 low Not Available [address], [address], 12/26/2020 16:59:26 12/24/19 21 12/26/2020 CBC (INCL UDES DIFF/ PLT) MCHC 31.7 g/dL 32.0-3 6.0 low Not Available [address], [address], 12/26/2020 16:59:26 12/24/19 21 12/26/2020 CBC (INCL UDES DIFF/ PLT) RDW 14.5 % 11.0-1 5.0 normal Not Available [address], [address], 12/26/2020 16:59:26 12/24/19 21 12/26/2020 CBC (INCL UDES DIFF/ PLT) platelet count 215 thous and/u L 140-40 0 normal Not Available [address], [address], 12/26/2020 16:59:26 12/24/19 21 12/26/2020 CBC (INCL UDES DIFF/ PLT) MPV 11.1 fL 7.5-12 .5 normal Not Available [address], [address], 12/26/2020 16:59:26 12/24/19 21 12/26/2020 CBC (INCL UDES DIFF/ PLT) absolute neutrophils 3352 cells /uL 1500-7 800 normal Not Available [place] [place] [address], [address], 12/26/2020 16:59:26 12/24/19 21 12/26/2020 CBC (INCL UDES DIFF/ PLT) absolute lymphocytes 1932 cells /uL 850-39 00 normal Not Available [address], [address], 12/26/2020 16:59:26 12/24/19 21 12/26/2020 CBC (INCL UDES DIFF/ PLT) absolute monocytes 268 cells /uL 200-95 0 normal Not Available [address], [address], 12/26/2020 16:59:26 12/24/19 21 12/26/2020 CBC (INCL UDES DIFF/ PLT) absolute eosinophils 120 cells /uL 15-500 normal Not Available [address], [address], 12/26/2020 16:59:26 12/24/19 21 12/26/2020 CBC (INCL UDES DIFF/ PLT) absolute basophils 29 cells /uL 0-200 normal Not Available [address], [address], 12/26/2020 16:59:26 12/24/19 21 12/26/2020 CBC (INCL UDES DIFF/ PLT) neutrophils 58.8 % normal Not Available [facility] [address], [address], 12/26/2020 16:59:26 12/24/19 21 12/26/2020 CBC (INCL UDES DIFF/ PLT) lymphocytes 33.9 % normal Not Available [address], [address], 12/26/2020 16:59:26 12/24/19 21 12/26/2020 CBC (INCL UDES DIFF/ PLT) monocytes 4.7 % normal Not Available [address], [address], 12/26/2020 16:59:26 12/24/19 21 12/26/2020 CBC (INCL UDES DIFF/ PLT) eosinophils 2.1 % normal Not Available [address], [address], 12/26/2020 16:59:26 12/24/19 21 12/26/2020 CBC (INCL UDES DIFF/ PLT) basophils 0.5 % normal Not Available [address], [address], 12/26/2020 16:59:26 12/24/19 21 12/26/2020 HEMOG LOBIN A1C hemoglobin A1C 5.8 %_of_ total _HGB <5.7 high Not Available [address], [address], 12/26/2020 16:59:26 12/24/19 21 12/26/2020 COMPR EHENS PAVEL METAB OLIC PANEL glucose 99 mg/dL 65-99 normal Fasti ng refer ence inter luci Not Available [address], [address], 12/26/2020 16:59:25 12/24/19 21 12/26/2020 COMPR EHENS PAVEL METAB OLIC PANEL urea nitrogen (BUN) 20 mg/dL 7-25 normal Not Available [address], [address], 12/26/2020 16:59:25 12/24/19 21 12/26/2020 COMPR EHENS PAVEL METAB OLIC PANEL creatinine 0.65 mg/dL 0.50-1 .10 normal Not Available [address], [address], 12/26/2020 16:59:25 12/24/19 21 12/26/2020 COMPR EHENS PAVEL METAB OLIC PANEL eGFR non-afr. mongolian 108 mL/mi n/1.7 3m2 > or = 60 normal Not Available [address], [address], 12/26/2020 16:59:25 12/24/19 21 12/26/2020 COMPR EHENS PAVEL METAB OLIC PANEL eGFR 125 mL/mi n/1.7 3m2 > or = 60 normal Not Available [address], [address], 12/26/2020 16:59:25 12/24/19 21 12/26/2020 COMPR EHENS PAVEL METAB OLIC PANEL BUN/creatini ne ratio not applic able (calc ) 6-22 Not Available [address], [address], 12/26/2020 16:59:25 12/24/19 21 12/26/2020 COMPR EHENS PAVEL METAB OLIC PANEL sodium 140 mmol/ L 135-14 6 normal Not Available [address], [address], 12/26/2020 16:59:25 12/24/19 21 12/26/2020 COMPR EHENS PAVEL METAB OLIC PANEL potassium 4.5 mmol/ L 3.5-5. 3 normal Not Available [address], [address], 12/26/2020 16:59:25 12/24/19 21 12/26/2020 COMPR EHENS PAVEL METAB OLIC PANEL chloride 105 mmol/ L 98-110 normal Not Available [address], [address], 12/26/2020 16:59:25 12/24/19 21 12/26/2020 COMPR EHENS PAVEL METAB OLIC PANEL carbon dioxide 27 mmol/ L 20-32 normal Not Available [address], [address], 12/26/2020 16:59:25 12/24/19 21 12/26/2020 COMPR EHENS PAVEL METAB OLIC PANEL calcium 8.5 mg/dL 8.6-10 .2 low Not Available [address], [address], 12/26/2020 16:59:25 12/24/19 21 12/26/2020 COMPR EHENS PAVEL METAB OLIC PANEL protein, total 6.7 g/dL 6.1-8. 1 normal Not Available [address], [address], 12/26/2020 16:59:25 12/24/19 21 12/26/2020 COMPR EHENS PAVEL METAB OLIC PANEL albumin 4.1 g/dL 3.6-5. 1 normal Not Available [address], [address], 12/26/2020 16:59:25 12/24/19 21 12/26/2020 COMPR EHENS PAVEL METAB OLIC PANEL globulin 2.6 g/dL_ (calc ) 1.9-3. 7 normal Not Available [address], [address], 12/26/2020 16:59:25 12/24/19 21 12/26/2020 COMPR EHENS PAVEL METAB OLIC PANEL albumin/glob ulin ratio 1.6 (calc ) 1.0-2. 5 normal Not Available [address], [address], 12/26/2020 16:59:25 12/24/1912/26/2020 COMPR EHENS PAVEL METAB OLIC PANEL bilirubin, total 0.2 mg/dL 0.2-1. 2 normal Not Available [address], [address], 12/26/2020 16:59:25 12/24/19 21 12/26/2020 COMPR EHENS PAVEL METAB OLIC PANEL alkaline phosphatase 87 U/L 31-125 normal Not Available [address], [address], 12/26/2020 16:59:25 12/24/19 21 12/26/2020 COMPR EHENS PAVEL METAB OLIC PANEL AST 13 U/L 10-30 normal Not Available [address], [address], 12/26/2020 16:59:25 12/24/19 21 12/26/2020 COMPR EHENS PAVEL METAB OLIC PANEL ALT 20 U/L 6-29 normal Not Available [address], [address], 12/26/2020 16:59:25 12/24/19 21 12/26/2020 LIPID PANEL WITH RATIO S cholesterol, total 209 mg/dL <200 high Not Available [address], [address], 12/26/2020 16:59:25 12/24/19 21 12/26/2020 LIPID PANEL WITH RATIO S HDL cholesterol 68 mg/dL > or = 50 normal Not Available [address], [address], 12/26/2020 16:59:25 12/24/19 21 12/26/2020 LIPID PANEL WITH RATIO S triglyceride s 76 mg/dL <150 normal Not Available [address], [address], 12/26/2020 16:59:25 12/24/19 21 12/26/2020 LIPID PANEL WITH RATIO S LDL-choleste rol 124 mg/dL _(estefany c) high Refer ence range : <100 Devi able range <100 mg/dL for prima ry preve ntion ; <70 mg/dL for patie nts with CHD or diabe tic patie nts with > or = 2 CHD risk facto rs. LDL-C is now calcu lated using the Xiao n-Hop kins calcu latshane n, which is a valid ated novel metho d provi ding catrachita r accur acy than the Fried vonda equat ion in the estim ation of LDL-C . Xiao landry SS et al. AMEE. 2013; 310(1 9): 2061- 2068 (http ://ed ucati on.Clearstream.TV Renny luz[employer]hentication Technologies. com/f aq/FA Q164) Not Available [address], [address], 12/26/2020 16:59:25 12/24/19 21 12/26/2020 LIPID PANEL WITH RATIO S chol/HDLC ratio 3.1 (calc ) <5.0 normal Not Available [address], [address], 12/26/2020 16:59:25 12/24/1912/26/2020 LIPID PANEL WITH RATIO S LDL/HDL ratio 1.8 (calc ) Below avera ge Risk: <2.34 [place] ge Risk: 2.35- 4.12 Moder ate Risk: 4.13- 5.56 High Risk: >5.57 Not Available [address], [address], 12/26/2020 16:59:25 12/24/19 21 12/26/2020 LIPID PANEL WITH RATIO S non HDL cholesterol 141 mg/dL _(estefany c) <130 high For patie nts with diabe seven plus 1 major ASCVD risk facto r, treat ing to a non-H DL-C goal of <100 mg/dL (LDL- C of <70 mg/dL ) is consi elizabeth bradley optio n. Not Available [address], [address], 12/26/2020 16:59:25 12/24/1912/26/2020 TSH+F REE T4 TSH 2.87 mIU/L normal Refer ence Range > or = 20 Years 0.40- 4.50 Pregn tobias Range s First trime ster 0.26- 2.66 Secon d trime ster 0.55- 2.73 Third trime ster 0.43- 2.91 Not Available [address], [address], 12/26/2020 16:59:24 12/24/1912/26/2020 TSH+F REE T4 T4, free 1.1 NG/dL 0.8-1. 8 normal Not Available [address], [address], 12/26/2020 16:59:24 12/24/19 21 12/26/2020 TESTO STERO NE, FREE, BIOAV AILAB LE AND TOTAL , MS albumin 4.3 g/dL 3.6-5. 1 Not Available [address], [address], 12/26/2020 16:59:23 12/24/1912/26/2020 TESTO STERO NE, FREE, BIOAV AILAB LE AND TOTAL , MS sex hormone binding globulin 35.2 nmol/ L 17-124 Not Available [address], [address], 12/26/2020 16:59:23 12/24/1912/26/2020 TESTO STERO NE, FREE, BIOAV AILAB LE AND TOTAL , MS testosterone , free 2.1 pg/mL 0.2-5. 0 Not Available [address], [address], 12/26/2020 16:59:23 12/24/1912/26/2020 TESTO STERO NE, FREE, BIOAV AILAB LE AND TOTAL , MS testosterone ,bioavailabl e 4.1 NG/dL 0.5-8. 5 Not Available [address], [address], 12/26/2020 16:59:23 12/24/1912/26/2020 TESTO STERO NE, FREE, BIOAV AILAB LE AND TOTAL , MS testosterone , total, MS 19 NG/dL 2-45 For addit ional infor danilo franklin e refer to https ://ed ucati on.qu megandi luzos tics. com/f aq/FA Q165 (This link is being provi ded for infor matio nal/e ducat ional purpo ses only. ) (Note ) This test was devel syd and its christos tical perfo rmanc e ej cteri stics have been deter mined by [employer]. It has not been clear ed or appro andrzej by the FDA. This assay has been valid ated pursu ant to the CLIA regul ation s and is used for clini estefany purpo ses. MDF med fusio n [address] [facility] [address] [place] [address] [phone] Jordan akhtar MD Not Available [facility] [address] [place], [address], 12/26/2020 16:59:23 12/24/19 21 12/26/2020 FSH AND LH FSH 7.9 mIU/m L normal Refer ence Range Folli cular Phase 2.5-1 0.2 Mid-c ycle Peak 3.1-1 7.7 Lutea l Phase 1.5- 9.1 Postm enopa usal 23.0- 116.3 Not Available [facility] [address] [place], [address], 12/26/2020 16:59:21 12/24/19 21 12/26/2020 FSH AND LH LH 4.7 mIU/m L normal Refer ence Range Folli cular Phase 1.9-1 2.5 Mid-C ycle Peak 8.7-7 6.3 Lutea l Phase 0.5-1 6.9 Postm enopa usal 10.0- 54.7 Not Available [facility] [address] [place], [address], 12/26/2020 16:59:21 09/25/19 22 09/24/2021 tread mill nucle ar stres s test (PROC ) No observ ation record ed. [id number] [facility] (Cardiology) 1 [facility] [place], [address], 05/27/2022 19:46:15 02/11/20 22 11/04/2021 home sleep study No observ ation record ed. [id number] [facility] 4 [facility] [place], [address], 05/27/2022 19:46:15 03/31/19 24 03/30/2023 XR, chest , 2 view No observ ation record ed. [email or web address] [facility] [address], [place], [address], 04/01/2023 12:24:16 Result Notes None recorded. Problems Name Problem SNOMED Code Status Onset Date Resolution Date Notes Provider Name and Address Organization Details Recorded Time Lateral epicondyliti s 126306664 Active Not Available [facility] 3 19:45:21 Acute urinary tract infection 018320359 Active 2021 Not Available [facility] 3 19:45:22 Polycystic ovary syndrome 474040203 Active 2021 Not Available [facility] 3 19:45:21 Hypothyroidi sm 55218858 Active 2021 Not Available [facility] 3 19:45:21 Hyperlipidem ia 57632077 Active 2021 Not Available [facility] 3 19:45:22 Foreign body in skin of foot 486800924 Active 2021 Not Available [facility] 3 19:45:22 Hyperinsulin ism 69401874 Active 2021 Not Available [facility] 3 19:45:22 Chest pain 37532679 Active 2021 Not Available [facility] 3 19:45:21 Impaired glucose tolerance 8606953 Active 2021 Not Available [facility] 3 19:45:22 Strain of thoracic region 14833146 Active 2021 Not Available [facility] 3 19:45:22 Sleep apnea 83938596 Active 2021 Not Available [facility] 3 19:45:22 Thoracic back pain 018547284 Active 2021 Not Available [facility] 3 19:45:21 Upper respiratory infection 09125430 Active 2021 Not Available [facility] 3 19:45:22 Acute sinusitis 56068376 Active 2021 Not Available [facility] 3 19:45:21 Cough 96938926 Active 2021 Not Available [facility] 3 19:45:22 Obstructive sleep apnea syndrome 05846005 Active 2021 Not Available [facility] 3 19:45:22 Candidiasis of vagina 66137926 Active 2021 Not Available [facility] 3 19:45:22 Acute pharyngitis 387106638 Active 2022 Not Available [facility] 3 19:45:21 Herpes labialis 7794435 Active 2022 KIM[address] Moore [address], [place], [address] , [employer] 3 15:33:18 Chronic pharyngitis 814024 Active 2022 KIMBERLY Moore [address], [address], [place], [address] , [employer] [facility] [employer] [facility] 3 13:36:16 Nausea 415563196 Active 2022 KIMBERLY Moore [address], [place], [address] , [place] [employer] [facility] 3 16:24:42 Acute low back pain 958262318 Active 2022 KIMBERLY Moore [address], [place], [address] , [employer] [facility] 3 13:39:53 Change in skin lesion 641738783 Active 2022 KIMBERLY Moore [address], [address], [place], [address] , [employer] 3 13:40:01 Acute upper respiratory infection 31485189 Active 2022 KIMBERLY Moore [address], [place], [address] , [employer] 3 15:56:17 Otalgia of left ear 7941422528 Active 2022 KIMBERLY Moore [address], [address], [place], [address] , [employer] 3 16:38:27 Vitamin D deficiency 34376025 Active 2022 KIMBERLY Moore [address], [address], [place], [address] , [employer] 3 13:17:00 Notes:COVID-19 pos 04/17/21 Problem Notes None recorded. Procedures Surgical History Date Name Laterality Status Provider Name and Address Organization Details Recorded Time 03/29/19 14 dilation and curettage completed Not Available [facility] 05/27/2022 19:44:50 reconstruction of anterior cruciate ligament of knee joint completed Not Available [facility] 05/27/2022 19:44:50 section completed Not Available [facility] 05/27/2022 19:44:50 loop electrosurgical excision procedure completed Not Available [facility] 05/27/2022 19:44:50 Imaging Results None recorded. Procedure Notes None recorded. Medical Equipment None Reported. Allergies Allergen ID Allergen Name Allergen Category Reaction Reaction Severity Criticality Documentation Date Start Date Code Code System Note Provider Name and Address Organization Details Recorded Time 17276 wheat gluten extract food Not available Not available Not available 05/27/2022 [address] 81 RxNorm Not Available [facility] 19:46:11 Medications Name Sig Start Date Stop Date Status Note LastModified by Organization Details LastModified Time amoxicillin 500 mg capsule TAKE 1 CAPSULE BY MOUTH TWICE DAILY FOR 10 DAYS 12/17 completed Not Available Not Available Not Available clotrimazol e 10 mg clemente DISSOLVE 1 TABLET BY MOUTH 4 TIMES DAILY FOR 10 DAYS 12/17 completed Not Available Not Available Not Available metformin 500 mg tablet Take 1 tablet 3 times a day by oral route. 10/28 completed Not Available Not Available Not Available prednisone 10 mg tablet TAKE 4 TABLETS BY MOUTH ONCE DAILY FOR 5 DAYS 08/15 completed Not Available Not Available Not Available doxycycline hyclate 100 mg capsule Take 1 capsule twice a day by oral route. 12/17 completed Not Available Not Available Not Available albuterol sulfate 2.5 mg/3 mL (0.083 %) solution for nebulizatio n Inhale 3 mL 3 times a day by nebulizat ion route as needed. active Not Available Not Available No t Available azithromyci n 250 mg tablet TAKE 2 TABLETS BY MOUTH ON DAY 1, AND THEN TAKE 1 TABLET BY MOUTH ONCE A DAY ON DAY 2 THROUGH DAY 5 active Not Available Not Available No t Available fluconazole 150 mg tablet TAKE 1 TABLET BY MOUTH ONCE DAILY FOR 1 DAY active Not Available Not Available No t Available benzonatate 200 mg capsule Take 1 capsule 3 times a day by oral route as needed. 05/20 completed Not Available Not Available Not Available valacyclovi r 1 gram tablet TAKE 2 TABLETS BY MOUTH EVERY 12 HOURS FOR 1 DAY AT ONSET OF COLD SORE NEEDED active Not Available Not Available No t Available hydrocodone 5 mg-acetamin ophen 325 mg tablet TAKE 1 TABLET BY MOUTH EVERY 4 TO 6 HOURS NEEDED FOR PAIN 09/10 completed Not Available Not Available Not Available ondansetron HCl 4 mg tablet TAKE 1 TABLET BY MOUTH EVERY 6 HOURS NEEDED FOR NAUSEA active Not Available Not Available No t Available Medrol (Ariel) 4 mg tablets in a dose pack use as directed 08/20 completed Not Available Not Available Not Available prednisone 20 mg tablet TAKE 2 TABLETS BY MOUTH DAILY FOR 5 DAYS 03/15 completed Not Available Not Available Not Available terconazole 0.8 % vaginal cream 10/28 completed Not Available Not Available Not Available oxycodone 5 mg/5 mL oral solution TAKE 5 ML (5 MG) BY MOUTH EVERY 4 HOURS NEEDED (3RD LINE PAIN MEDICATIO N) 12/17 completed Not Available Not Available Not Available prochlorper azine maleate 10 mg tablet 09/16 completed Not Available Not Available Not Available valacyclovi r 500 mg tablet 09/16 completed Not Available Not Available Not Available ciprofloxac in 500 mg tablet TAKE 1 TABLET BY MOUTH EVERY 12 HOURS 03/15 completed Not Available Not Available Not Available tramadol 50 mg tablet TAKE 1 TABLET BY MOUTH EVERY 6 HOURS NEEDED FOR PAIN active Not Available Not Available No t Available levothyroxi ne 75 mcg tablet TAKE 1 TABLET BY MOUTH ONCE DAILY active Not Available Not Available No t Available amoxicillin 875 mg tablet Take 1 tablet every 12 hours by oral route. 07/16 completed Not Available Not Available Not Available methocarbam ol 750 mg tablet active Not Available Not Available Not Available Kenalog 10 mg/mL suspension for injection In office injection administe red by the provider 07/18 completed [facility]: [phone] Not Available Not Available Not Available cephalexin 500 mg capsule TAKE 1 CAPSULE BY MOUTH THREE TIMES DAILY 03/15 completed Not Available Not Available Not Available metformin 1,000 mg tablet Take 1 tablet twice a day by oral route with meals. active Not Available Not Available No t Available clotrimazol e-betametha sone 1 %-0.05 % topical cream 11/19 completed Not Available Not Available Not Available dextroamphe tamine-amph etamine 20 mg tablet 05/26 completed Not Available Not Available Not Available ergocalcife rol (vitamin D2) 1,250 mcg (50,000 unit) capsule TAKE 1 CAPSULE BY MOUTH ONCE A WEEK active Not Available Not Available No t Available cefuroxime axetil 500 mg tablet Take 1 tablet every 12 hours by oral route. active Not Available Not Available No t Available albuterol sulfate HFA 90 mcg/actuati on aerosol inhaler INHALE 2 PUFFS BY MOUTH EVERY 6 HOURS NEEDED FOR WHEEZING OR SHORTNESS OF BREATH active Not Available Not Available No t Available metformin ER 500 mg tablet,exte nded release 24 hr Take 2 tablets every day by oral route for 90 days. 11/19 completed Not Available Not Available Not Available folic acid 800 mcg tablet Take 1 tablet every day by oral route. 09/16 completed Not Available Not Available Not Available naproxen 500 mg tablet active Not Available Not Available Not Available metoclopram kassandra 10 mg tablet 09/16 completed Not Available Not Available Not Available amoxicillin 875 mg-potassiu m clavulanate 125 mg tablet TAKE 1 TABLET BY MOUTH TWICE DAILY FOR 10 DAYS 12/17 completed Not Available Not Available Not Available nitrofurant oin monohydrate /macrocryst als 100 mg capsule TAKE 1 CAPSULE BY MOUTH EVERY 12 HOURS 09/09 completed Not Available Not Available Not Available Aleshanon PRN 2021 active Not Available Not Available Not Avai lable Vitamins one daily 09/16 completed Not Available Not Available Not Available lidocaine (PF) 10 mg/mL (1 %) injection solution In office injection administe red by the provider 07/18 completed [facility]: [phone] Not Available Not Available Not Available Nucynta 75 mg tablet 09/16 completed Not Available Not Available Not Available Vitals Date Recorded Body mass index (BMI) Body height Oxygen saturation Heart rate Respiratory rate Body temperature Body weight Provider Name and Address Organization Details Last Updated DateTime 3 45.4 kg/m2 171.45 cm 97 % 77 /min 16 /min 97.3 [degF] 528143. 95 g Not Available [facility] 3 19:44:56 Date Recorded Body mass index (BMI) Body height Oxygen saturation Heart rate Body temperature Body weight Systolic And Diastolic Systolic And Diastolic Provider Name and Address Organization Details Last Updated DateTime 1 47.4 kg/m2 171.45 cm 88 % 97 /min 97.2 [degF] 520278. 86 g 130/80 mm[Hg] 110/80 mm[Hg] Not Available [facility] 3 19:44:53 Date Recorded Body height Body mass index (BMI) Body weight Heart rate Oxygen saturation Body temperature Systolic And Diastolic Provider Name and Address Organization Details Last Updated DateTime 3 171.45 cm 45.7 kg/m2 025244. 34 g 82 /min 98 % 98.3 [degF] 112/80 mm[Hg] Amy Ornelas RN [place] [email or web address] [facility] 3 16:20:00 Date Recorded Body mass index (BMI) Body height Oxygen saturation Heart rate Respiratory rate Body temperature Body weight Systolic And Diastolic Provider Name and Address Organization Details Last Updated DateTime 2 48.4 kg/m2 171.45 cm 98 % 80 /min 16 /min 97.9 [degF] 414379. 57 g 122/78 mm[Hg] Not Available [facility] 3 19:44:53 Date Recorded Body mass index (BMI) Body height Oxygen saturation Heart rate Respiratory rate Body temperature Body weight Systolic And Diastolic Provider Name and Address Organization Details Last Updated DateTime 2 48.6 kg/m2 171.45 cm 97 % 85 /min 16 /min 97.5 [degF] 163527. 88 g 128/80 mm[Hg] Not Available [facility] 3 19:44:53 Social History Question Answer Notes LastModified by Organizat ion Details LastModified Time Tobacco Smoking Status Former Smoker Not Available [facility] 05/27/2022 19:44:42 What Is Your Level Of Caffeine Consumption? Moderate [id number] Information not available 05/27/2022 How Much Tobacco Do You Chew? None [id number] Information not available 05/27/2022 In The 14 Days Before Symptom Onset, Have You Had Close Contact With A Laboratory-confirm ed COVID-19 While That Case Was Ill? No [id number] Information not available 05/27/2022 In The 14 Days Before Symptom Onset, Have You Had Close Contact With A Person Who Is Under Investigation For COVID-19 While That Person Was Ill? No [id number] Information not available 05/27/2022 What Type Of Diet Are You Following? REGULAR [id number] Information not available 05/27/2022 Which Illicit Or Recreational Drugs Have You Used? None [id number] Information not available 05/27/2022 Have There Been Any Changes To Your Family Or Social Situation? No [id number] Information not available 05/27/2022 Are There Any Guns Present In Your Home? No [id number] Information not available 05/27/2022 Do You Use Insect Repellent Routinely? No [id number] Information not available 05/27/2022 What Is Your Relationship Status? [id number] Information not available 05/27/2022 Do You Use Your Seat Belt Or Car Seat Routinely? Yes [id number] Information not available 05/27/2022 Do You Have Smoke And Carbon Monoxide Detectors In Your Home? Yes [id number] Information not available 05/27/2022 At What Age Did You Start Smoking Tobacco? 15 [id number] Information not available 05/27/2022 How Much Tobacco Do You Smoke? No [id number] 1447 Information not available 05/27/2022 Do You Use Sunscreen Routinely? Yes [id number].[id number] 8144 Information not available 05/27/2022 Have You Recently Traveled Abroad? No [id number] 0665 Information not available 05/27/2022 Do You Have Any Dietary Restrictions? No [id number] Information not available 05/27/2022 Sex: Unknown Functional Status Question Answer Note LastModified by Organizat ion Details LastModified Time Do you use any illicit or recreational drugs? No [id number] 1805 Information not available 05/27/2022 Do you or have you ever used any other forms of tobacco or nicotine? No [id number].[id number] 4916 Information not available 05/27/2022 What is your level of alcohol consumption? None [id number].[id number] 2603 Information not available 05/27/2022 Do you or have you ever used smokeless tobacco? 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 Never used electronic cigarettes [id number].[id number] 1778 Information not available 05/27/2022 What is your exercise level? Moderate [id number] 5253 Information not available 05/27/2022 Mental Status None recorded. Family History Relationship Description Onset Age of this Age Resolved Age Notes LastModified by Organization Details LastModified Time Mother Varicose veins of lower extremity [id number] Not available 05/27/2022 19:44:51 Notes:rheumatoid arthritis : grandma Medical History Condition Response BREAST PROBLEMS Y DIABETES, TYPE Y BRONCHITIS Y Gynecological History Statement/Question Response Abnormal Pap Y Date of Last Mammogram 03/29/2017 Date of LMP 07/03/2020 Sexually Active? Y Menses Monthly Y Date of Last Pap 05/27/2018 Obstetrics History GPAL:G 0 P 0 0 0 0 Immunizations Vaccine Type Date Status Note Provider Nam e and Address Organization Details Recorded Time tetanus toxoid, unspecified formulation 2 completed Not Available [facility] 05/27/2022 19:46:09 Past Encounters Encounter ID Performer Location Encounter Start Date Encounter Closed Date Diagnosis/Indication Diagnosis SNOMED-CT Code Diagnosis ICD10 Code Diagnosis IMO Codes Diagnosis Note [id number] KIMBERLY Moore [facility] Internal Med [place] [address] [place] [address] 07/19/2020 00:00:00 07/21/2020 17:46:59 [id number] Sivakumar Zhao MD [facility] Internal Med [place] [address] [place] [address] 09/10/2021 00:00:00 09/25/2021 14:11:32 [id number] Sivakumar Zhao MD [facility] Internal Med [place] [address] [place] [address] 10/06/2021 00:00:00 10/08/2021 13:34:21 [id number] KIMBERLY Moore [facility] Internal Med [place] [address] [place] [address] 05/21/2022 00:00:00 05/23/2022 19:49:22 [id number] KIMBERLY Moore [facility] [place] [address] [place] [address] 09/04/2022 16:14:41 09/04/2022 16:40:25 Impaired glucose tolerance 0778101 R73.03 due for a1c Hypothyroidism 62043383 E03.9 due for TFTs Hyperlipidemia 78732084 E78.5 due for fasting lipids Long-term drug therapy 993136012 Z79.899 CBC and CBC due Otalgia of left ear 1010 713860 H92.02 no erythema is present in left TM but pt remains symptomati c. start augmentin course and prednisone 40mg daily x 5 days. Health Concerns Section Related Observation LastModified by Organization Detai ls LastModified Time None Recorded Concern Status LastModified by Organization Details LastModified Time None Recorded Advance Directives Directive None Recorded Payers Insurance Date Sequence Insurance Name Policy Number Policy Dangelo Covered Member ID Dangelo Member ID Guarantor Name 09/24/2022 1 [employer] [id number] Víctor Soriano [id number] Christel Soriano Notes Date Note Type Note Provider Name and Address Organization Details Recorded Time 09/04/2022 text/html Ear Pain Brief HPIReported by PatientHPIFor context, patient reportsrecent traumabut reportsno recent uri,no recent trauma,no recent ear infection,no recent swimming,no immunocompromise,no dental problems,no recent airplane travel,no scuba diving, andnon-smoker. For associated symptoms, patient reportshearing loss,sense of fullness/pressure,decr eased hearing, andmuffled hearingbut reportsno vertigo,no jaw popping or clicking,no temporomandibular joint disease,no discharge from ear,no nasal congestion,no nasal discharge,no sore throat,no dental pain,no jaw pain,no tinnitus,no decreased hearing, andno muffled hearing. For location, patient reportsleft. For onset/timing, patient reportsnew onset. For quality, patient reportsno itching,no discharge from the ears, andno burning. For severity, patient reportsno fever,able to perform daily activities, andno interference with sleep.pt called this morning - c/o her son waking her up by smacking her ear over and over, now experiencing muffled hearing and pain in that ear. KIMBERLY Moore [address] [place] [address], [facility] [address], [place], [address], [facility] [employer] [facility] 09/23/2022 23:12:16 OBGyn Episode No OBEpisode recorded.
[2025-03-17 17:56] VITALS: BP 127/76; PULSE 93; RESP 18; TEMP 36.9; O2SAT 99
--- NOTE | 2025-03-17 18:12 | ED.URI ---
HPI - URI/Sore Throat General Chief Complaint: Upper Respiratory Infection Stated Complaint: Poss Sinus Problem Time Seen by Provider: 03/17/25 18:12 Source: patient, RN notes reviewed and old records reviewed Mode of arrival: ambulatory Limitations: no limitations History of Present Illness HPI Narrative: 49 year old female who presents to express care with complaint of headache sinus congestion upper chest does feel tight, with cough deep and at times productive. Patient reports that son diagnosed with strep on Wednesday and she had a strep test which was negative. Patient reports that she has bee taking Robitussin cough syrup, Flonase and Tylenol for her symptoms. MD elicited complaint: cough, sore throat and other (nasal congestion headache and sneezing) Onset (ago): day(s) Pain scale (0-10): 5 Able to tolerate fluids by mouth: Yes Treatments prior to arrival: other (Robbitusin DM, Aleve, Flonase) Related Data Home Medications ?Medication ?Instructions ?Recorded ?Confirmed ?Last Taken ?Type ergocalciferol (vitamin D2) 1,250 03/17/25 Unknown History mcg (50,000 unit) capsule levothyroxine 75 mcg tablet mcg 03/17/25 Unknown History Allergies Allergy/AdvReac Type Severity Reaction Status Date / Time gluten Allergy Intermediate RASH,SWELLI Verified 03/17/25 18:17 NG acetaminophen AdvReac Unknown N&V Verified 03/17/25 18:17 hydrocodone AdvReac Unknown N&V Verified 03/17/25 18:17 Review of Systems Review of Systems: CONSTITUTIONAL: Reports malaise, chills, sweats, or fever. EYES: Denies visual changes, redness, or discharge. ENT: Reports rhinorrhea, congestion, sinus pain, no otalgia and +sore throat. CARDIOVASCULAR: Denies chest pain, palpitations, or edema. RESPIRATORY: Reports cough.? Denies dyspnea.states upper chest feel s tight with cough GASTROINTESTINAL: Denies abdominal pain, nausea, vomiting, diarrhea SKIN: Denies rash or itching. MUSCULOSKELETAL:positive for myalgia. NEUROLOGIC: positive for headache. All systems reviewed & are unremarkable except as noted in HPI and below PMFSH Past Medical History Medical History (Updated 03/19/25 @ 14:28 by Barbi Jones APRN) Hypothyroid History of PCOS Pre-diabetes Surgical History Surgical History H/O wisdom tooth extraction S/P ACL surgery Unknown which leg History of Social History Social History Smoking status: Never smoker Alcohol intake: never Gender identity (if verbalized by the patient): Female Comments At time of signature, agree with nursing past medical, surgical, social and family history. There is no relevant family history pertinent to the presenting complaint Exam Narrative: GENERAL: ill-appearing, well-nourished, and in no acute distress. HEAD: Normocephalic EYES: PERRLA, conjunctivae clear ENT: Nares clear, turbinates edematous and erythematous, clear discharge. Mucous membranes moist. TM pearly andrews with dull light reflex bilaterally; no tragal tenderness. Oropharynx erythematous without lesions. Tonsils red enlarged and without exudate, no drooling, no hoarseness, no trismus, uvula midline post nasal drainage noted. NECK: Supple. No lymphadenopathy CHEST: Clear to auscultation, breath sounds equal. No wheezing, rhonchi, rales, or stridor. No respiratory distress, speaks in full sentences.cough SAO2 99% on room air HEART: Regular rate and rhythm. No murmur heard. SKIN: Warm, dry, no rash. NEURO: Alert and oriented x3. PSYCH: Normal mood and affect Course Course Level of Care: Express Care Visit Vital Signs Vital signs: Vital Signs Temperature 36.9 C 03/17/25 17:56 Pulse Rate 93 03/17/25 17:56 Respiratory Rate 18 03/17/25 17:56 Blood Pressure 127/76 03/17/25 17:56 Pulse Oximetry 99 03/17/25 17:56 Oxygen Delivery Room Air 03/17/25 17:56 Temperature 36.9 C 03/17/25 17:56 Pulse Rate 93 03/17/25 17:56 Respiratory Rate 18 03/17/25 17:56 Blood Pressure 127/76 03/17/25 17:56 Pulse Oximetry 99 03/17/25 17:56 Oxygen Delivery Room Air 03/17/25 17:56 reviewed MDM MDM Narrative Medical decision making narrative: Patient tested positive for COVID and requested Paxlovid ordered for treatment. Patient is appropriate for outpatient therapy and follow up Anticipatory guidance and reasons to seek care in the ED reviewed with atient with understanding voice. Differential Diagnosis Differential Diagnosis: Differential diagnostic considerations for upper respiratory infection include upper respiratory infection, croup, otitis media, sinusitis, viral infection, bronchitis, influenza, pharyngitis, strep, uvulitis.? Lab Data MDM Lab Attestation statement: I personally reviewed the patient's lab results. Lab results narrative: COVID antigen positive, strep negative culture sent, Influenza A& B negative Labs: Lab Results 03/17/25 Range/Units 18:16 POC Influenza A Ag Negative (Negative) POC Influenza B Ag Negative (Negative) POC SARS CoV-2 Ag Positive (Negative) POC Grp A Strep Screen Negative (Negative) Critical Care Time Critical Care Time Critical Care Time: No Discharge Plan Discharge Clinical Impression: COVID-19 Patient Disposition: Home Condition: Stable Instructions: Antibiotic Form, How to Recover from COVID-19 at Home (ED) Additional Instructions: Increase fluids especially juices and water Chvi-djh-ysfmfzl cough and cold medicine of your choice for your symptoms Paxlovid as ordered per patient request Continue your inhaler/nebulizer as directed Steroids as directed--take with food heat to the face 20-30 minutes 4-6 times a day for pain Salt water gargles, throat lozenges or throat sprays as desired Your strep test today was negative. A throat culture will be sent to the laboratory for further testing. IF the test is positive, you will receive a phone call within 48 hours and an appropriate antibiotic will be initiated at that time. you tested positive for COVID COVID-19 DISCHARGE The following recommendations have been made by the CDC and local Health Departments, regarding COVID-19: Those individuals with mild cases of COVID-19 can generally be discontinued from isolation, 5 days AFTER the onset of symptoms AND the resolution of fever for 24hrs (without the use of fever-reducing medications) Those individuals who were asymptomatic, and tested positive, are discontinued from isolation 10 days AFTER their first positive COVID-19 test Those individuals with SEVERE to CRITICAL illness or immunocompromised diseases may require up to 20 days of home isolation or hospitalization Majority of mild to moderate cases can be treated at home, without hospitalization or prescription medications You do not need a negative test result to return to work/school, assuming the above recommendations have been met and you are not symptomatic. At this time, return to work/school notes will not be provided. Guidelines from the local Health Department, CDC, and workplace are expected to be followed. All individuals in the household need to remained quarantined for up to 14 days if asymptomatic OR 10 days after the start of symptoms. Everyone in the home DOES NOT require testing, they are presumed positive and should quarantine as directed. Treating symptoms for mild to moderate cases may include: Tylenol, Flonase/nasal spray, OTC cold/flu medications recommended from your provider or any necessary prescription medications provided at your visit or from your PCP IF YOU TESTED NEGATIVE If you are symptomatic with reason to believe you have COVID-19, there is a high possibility your rapid test may not have detected the virus. Rapid testing is dependent on timing and viral load and may have a false-negative reading You should follow appropriate guidelines regarding quarantine, hand washing, mask wearing, and social distancing You may be sent for PCR testing as an outpatient to the [facility] site Common Adult Symptoms: Fever/chills Cough Shortness of breath Fatigue, muscle aches Headache Loss of taste/smell Sore throat, congestion, runny nose GI symptoms (nausea, vomiting, diarrhea) Common Pediatric Symptoms Cough Fever GI symptoms (diarrhea, upset stomach, nausea, vomiting) Symptoms may differ in severity however, most cases do not require hospitalization. WHEN TO SEEK ER EVALUATION/TREATMENT Severe/persistent shortness of breath or difficulty breathing Elevated, persistent fevers without resolution with fever-reducing medications Chest pain Extreme fatigue/lethargy Complications of pre-existing disease Patient Language: Uzbek Prescriptions: New Paxlovid 300 mg (150 mg x 2)-100 mg tablets,dose pack See Rx Instructions .ROUTE .COMPLEX Qty: 30 0RF Rx Instructions: take TWO 150 mg tablets of nirmatrelvir with ONE 100 mg tablet of ritonavir twice daily for 5 days prednisone 20 mg tablet 40 mg PO DAILY Qty: 10 0RF Rx Instructions: start in morning No Action levothyroxine 75 mcg tablet ergocalciferol (vitamin D2) 1,250 mcg (50,000 unit) capsule naproxen 500 mg tablet 500 mg PO BID Qty: 20 0RF Follow-up/Referrals: John,CLIFTON Lopez [Primary Care Provider, Unknown] Stand Alone Forms: Work/School Release IP Time of Disposition: 18:28 Quality [place] Coma Scale Eyes: Open Verbal: Oriented and Alert Motor: Follows Commands [place] Coma Total Score: 15
[2025-03-17 18:20] LABS: EDCOVIDSCREEN Positive (Negative); EDINFLUASCREEN Negative (Negative); EDINFLUBSCREEN Negative (Negative); EDSTREPNEGPOS1 Negative (Negative)
== END 2025-03-17 18:30 | disposition home or self-care (01) ==
PROVIDERS: Emergency Provider Registered Nurse; PCP Physician Assistant
DX: U07.1 COVID-19 (principal); E03.9 Hypothyroidism, unspecified; E28.2 Polycystic ovarian syndrome; R73.03 Prediabetes
CPT/HCPCS: 87081; 87426; 87804; 87880; 99213; G0463

== ENCOUNTER 2025-03-27 15:41 | Emergency (ER) | payer BC, SELFPAY ==
--- NOTE | ~2025-03-27 | XR_ITS ---
EXAMINATION: XR chest 2V DATE: 03/27/2025 16:14 INDICATION: Cough. Recent Covid infection. TECHNIQUE: PA and lateral views of the chest were obtained. COMPARISON: Chest radiograph dated 03/30/2023 FINDINGS: The lungs remain clear with no focal airspace opacities, pulmonary edema, pleural effusion or pneumothorax. The cardiomediastinal silhouette is normal. Mild thoracic spondylosis. IMPRESSION: 1. No acute cardiopulmonary disease. Reviewed, dictated and finalized at location A. [employer]
--- OUTSIDE RECORDS SUMMARY | 2025-03-27 15:43 | XMS_ITS | Clinical Summary ---
Author Organization [facility] Address [address] [place] [address] Care Team Providers Care Diamond Sizer And Sorter Name Role Phone Provider, Not In System Primary Care Provider Un available Source Comments This disclosure is being made pursuant to the [employer] program and maynot contain all information available regarding this patient.[facility] Allergies Active Allergy Reactions Criticality Noted Date Comments Gluten Meal Hives High 03/24/2014 Medications metFORMIN (GLUCOPHAGE) 500 MG tablet Take 500 mg by mouth 3 (three) times daily. Active amphetamine-dextroa mphetamine (ADDERALL, 20MG,) 20 MG tablet Take 10 mg by mouth 2 (two) times daily. Active ondansetron (ZOFRAN-ODT) 4 MG disintegrating tablet Take 1 tablet by mouth every 8 (eight) hours as needed for Nausea. 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 Gender Identity Not on file Sexual Orientation Not on file Last Filed Vital Signs Vital Sign Reading Time Taken Comments Blood Pressure 164/81 03/22/2016 1:02 AM RETORT OR CONDENSER PRESS OPERATOR Pulse 86 03/22/2016 1:02 AM RETORT OR CONDENSER PRESS OPERATOR Temperature 37.1 C (98.7 F) 03/21/2016 10:57 PM RETORT OR CONDENSER PRESS OPERATOR Respiratory Rate 16 03/22/2016 1:02 AM RETORT OR CONDENSER PRESS OPERATOR Oxygen Saturation 95% 03/22/2016 1:02 AM RETORT OR CONDENSER PRESS OPERATOR Inhaled Oxygen Concentration - - Weight 124.3 kg (274 lb 0.5 oz) 016 10:57 PM RETORT OR CONDENSER PRESS OPERATOR Height 170.2 cm (5' 7) 03/21/2016 10:5 7 PM RETORT OR CONDENSER PRESS OPERATOR Body Mass Index 42.92 03/21/2016 10:57 PM RETORT OR CONDENSER PRESS OPERATOR Plan of Treatment Health Maintenance Due Date Last Done Comments Breast Cancer Screening-Mammogram 1976 CT Colonography 1976 Colonoscopy 1976 Colorectal Cancer Screening 1976 Fecal DNA Test 1976 HPV 1976 Lab-Cholesterol Screening 1976 Lab-Hepatitis C Screening 1976 Sigmoidoscopy 1976 Annual Wellness Visit 1994 Hepatitis B Vaccine (1 of 3 - 19+ 3-dose series) 06/24/1995 Tetanus/Pertussis Vaccine Teen/Adult (1 - Tdap) 06/24/1995 FOBT/FIT 1996 Cervical Cancer Screening 11/04/2011 Pap Smear 11/02/2014 11/03/2011 COVID-19 Vaccine ( - 2024-2 6 season) 2024 Influenza Vaccine (#1) 2024 Zoster (Shingles) Vaccine 50 + (1 of 2) 2026 RSV Adult (1 - 1-dose 75+ series) 06/24/2051 HIB Vaccine Aged Out No longer eligi ble based on patient's age to complete this topic HPV Vaccine (9-26yo & Shared Decision 27-45yo) Aged Out No longer eligible b ased on patient's age to complete this topic Hepatitis A Vaccine Aged Out No longe r eligible based on patient's age to complete this topic IPV Vaccine Aged Out No longer eligi ble based on patient's age to complete this topic Meningococcal Conjugate Vaccine Aged Out No longer eligible based on patient's age to complete this topic Pneumococcal Vaccines 0-49 yo Aged Out No longer eligible based on patient's age to complete this topic RSV < 20 Months Aged Out No longer el igible based on patient's age to complete this topic Procedures Procedure Name Priority Date/Time Associated Diagnosis Comments LIQUID-BASED PAP SMEAR Routine 11/03/2011 12:00 AM CDT from Last 3 Months or Most Recently Relevant to Health Maintenance Results * Liquid Based Pap Smear (11/03/2011 12:00 AM CDT) 11/03/2011 Narrative PRMPATH - 11/03/2011 12:00 AM CDT Patient Name: STEPHANIE EASON Sex: F Age: 36 Birthdate: 1975 Location: Submitted By: YULISSA FONTANEZ MD Copy To: Gynecological Cytology Report - Liquid Based Collected Date:11/03/2011 Received Date:11/05/2011 Specimen Source:Vaginal; Cervical LMP:10/09/11 Reason for Pap Smear:Routine Pap Smear Clinical Information: SPECIMEN ADEQUACY: Satisfactory for evaluation; an endocervical /transformation zone component is present. INTERPRETATION: Negative for intraepithelial lesion or malignancy. Cervicovaginal cellular samples are subject to both false negative and false positive findings. This is well documented in the medical literature. The patient's cervicovaginal cellular sample result should be interpreted in the proper clinical context. Correlation with the patient's clinical history and physical findings is recommended. If there is a visible mucosal lesion, a biopsy is recommended regardless of the cytology results. Initial Evaluation performed by Marine Tang Electronically signed 11/05/2011 3:50p Interpretation performed by Calin Galvin Electronically signed 11/10/2011 6:35p us Yulissa Fontanez MD PATHOLOGY/CYTOLOGY ORDERABL ES Final Result PRMPATHH from Last 3 Months or Most Recently Relevant to Health Maintenance Insurance [facility] [id number] [place] [address] Care Teams Diamond Sizer And Sorter Relationship Specialty Start Date End Date Provider, Not In System PCP - General 03/24/14
--- OUTSIDE RECORDS SUMMARY | 2025-03-27 15:43 | XMS_ITS | Encounter Summary ---
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 They needs something sent over stating patient needs a bone scan. Please fax to: [phone]. Any questions, call [phone]. SETTER documented in this encounter Plan of Treatment Not on file documented as of this encounter Visit Diagnoses Not on filedocumented in this encounter Care Teams Blunger Loader Relationship Specialty Start Date End Date Jessica Lopez PA PCP - General 10/10/18 Lisa Amato PA [address] [facility] [address] [place] [address] [place] [id number] Physician [employer] Store Area Supervisor Orthopedic Surgery 11/30/24 documented as of this encounter
--- OUTSIDE RECORDS SUMMARY | 2025-03-27 15:43 | XMS_ITS | Clinical Summary ---
Author Organization [facility] Address [address] [place] [address] Phone Care Team Providers Care Engine House Helper Name Role Phone Jessica Lopez Primary Care Provider Allergies Active Allergy Reactions Criticality Noted Date Comments Gluten Meal Rash,Nausea,Swelling ,Other (see Comments) High 11/19/2008 And acne on face Medications Naproxen Sodium (ALEVE PO) Take 2 Tablets by mouth as needed. Active albuterol (ProAir HFA) 108 (90 Base) MCG/ACT Aerosol SolutionIndicat ions:Bronchitis with acute wheezing take 2 Puffs by inhalation every 4 hours as needed for Wheezing or Cough. 18 g 08/17/19 23 Active valACYclovir (VALTREX) 1 GM Tablet 02/28/20 24 Active ergocalciferol (VITAMIN D) 54663 UNIT Capsule Take 1.25 mg by mouth once a week. 05/03/19 25 Active levothyroxine (SYNTHROID) 75 MCG Tablet Take 75 mcg by mouth daily. 05/03/19 25 Active meclizine (ANTIVERT) 12.5 MG Tablet Take 1 Tablet by mouth every 8 hours as needed for Dizziness. 30 Tablet 07/21/19 25 Active ondansetron (ZOFRAN-ODT) 4 MG TABLET DISPERSIBLE Take 1 Tablet by mouth every 8 hours as needed for Nausea - 1st line. 10 Tablet 07/21/19 25 Active tirzepatide-luana ght management (Zepbound) 2.5 MG/0.5ML Solution Auto-injector Inject by subcutaneous route for 28 days. Active ondansetron (ZOFRAN) 4 MG Tablet Take 4 mg by mouth. 12/01/19 Active metFORMIN (GLUCOPHAGE-XR) 500 MG TABLET SR 24 HR 02/10/20 24 025 Discontin ued(Thera py completed ) aspirin EC 81 MG Tablet Delayed Response Take 81 mg by mouth. 12/01/19 25 025 Discontin ued(Thera py completed ) meloxicam (MOBIC) 15 MG Tablet TAKE 1 TABLET BY MOUTH ONCE DAILY WITH MEALS 10/24/19 25 025 Discontin ued(Thera py completed ) Active Problems Problem Noted Date Diagnosed Date Hypercholesteremia 05/03/2014 Vitamin D deficiency 11/20/2013 Obesity 09/05/2013 ADHD (attention deficit hyperactivity disorder) 09/05/2013 Restless leg syndrome 09/05/2013 PCOS (polycystic ovarian syndrome) 09/05/2013 Resolved Problems Problem Noted Date Diagnosed Date Resolved Date Adrenal insufficiency 02/21/20132014 ACL (anterior cruciate ligament) tear 12/26/2007 09/05/2013 Overview (12/26/2007): With repair On 12-04 Eczema 12/15/2002 09/05/2013 Sinusitis 10/27/2002 12/26/2007 Bronchospasm 05/12/2002 12/26/2007 Cold sore 05/12/2002 12/26/2007 Overview (09/21/2007): Lower lip Acne 10/24/2001 09/05/2013 Overview (09/21/2007): Grade II Otitis externa 11/28/1999 12/26/2007 Encounters Date Type Department Care Team Description 03/16/2025 1:05 PM SUPPORT ARCHITECT [facility] [address] [place] [address] Maribell Dhillon, CIVIL SERVICE CLERK, SANE RN Viral pharyngitis (Primary Dx); Sore throat Discharge Disposition: Discharged to home or Selfcare 03/16/2025 Travel 02/14/2025 12:55 PM SUPPORT ARCHITECT Clinical Support [facility] [address] [place] [address] Nurse [facility] Visit for TB skin test (Primary Dx) Discharge Disposition: Discharged to home or Selfcare 02/12/2025 10:30 AM SUPPORT ARCHITECT Clinical Support [facility] [address] [place] [id number] Nurse [facility] PPD screening test (Primary Dx) Discharge Disposition: Discharged to home or Selfcare 02/12/2025 Travel 01/03/2025 1:00 PM CDT Urgent Care Visit [facility] [address] [place] [address] Naye Vaughan APRN, SANE RN Otalgia of right ear (Primary Dx) Discharge Disposition: Discharged to home or Selfcare 01/03/2025 Travel 12/26/2024 6:00 PM CDT Urgent Care Visit [facility] [address] [place] [address] Naye Vaughan CIVIL SERVICE CLERK, SANE RN Non-recurrent acute suppurative otitis media of right ear without spontaneous rupture of tympanic membrane (Primary Dx) Discharge Disposition: Discharged to home or Selfcare 12/26/2024 Travel from Last 3 Months Immunizations Immunization Administration Dates Next Due Hepatitis B Vaccine 11/16/2003,08/17/2003,2003 Influenza Vaccine greater than 3 yrs 03/04/2012 Influenza, Seasonal, Injecta ble, Undefined 03/04/2012 MMR Vaccine 10/16/1990 PUR TDAP 7+ YRS IM 10/05/2011 TB Skin Test 10/12/2011, 2,10/09/2009,2003,07/24/2003 TD VACCINE 07/12/2003 TDAP Vaccine 04/23/2018 Tetanus Toxoid, Unspecified Formulation 03/29/2011 Tuberculin Skin Test; Purifi ed Protein Derivative Solutiol 11/10/2022 Social History Tobacco Use Types Packs/Day Years [...] on file Legal Sex Female 3:05 AM SUPPORT ARCHITECT Gender Identity Not on file Sexual Orientation Not on file Last Filed Vital Signs Vital Sign Reading Time Taken Comments Blood Pressure 104/84 03/16/2025 1:11 PM SUPPORT ARCHITECT Pulse 83 03/16/2025 1:11 PM SUPPORT ARCHITECT Temperature 36.8 C (98.3 F) 03/16/2025 1:11 PM SUPPORT ARCHITECT Respiratory Rate 18 03/16/2025 1:11 PM SUPPORT ARCHITECT Oxygen Saturation 99% 03/16/2025 1:11 PM SUPPORT ARCHITECT Inhaled Oxygen Concentration - - Weight 142.9 kg (315 lb) 03/16/2025 1:11 PM SUPPORT ARCHITECT Height 170.2 cm (5' 7) 08/02/2015 1:07 PM CDT Body Mass Index 49.34 08/02/2015 1:07 PM CDT Plan of Treatment Health Maintenance Due Date Last Done Comments Hepatitis C Virus (HCV) Screening 1975 Mammogram 1975 Discussion re Starting/Frequency of Mammograms 2016 Pap Smear 02/05/2019 02/06/2016 Cervical Cancer Screening (CCS) 02/05/2021 HPV/Cotest 02/05/2021 02/06/2016 Cologuard 2021 Immunochemical Fecal Occult Blood 2021 Colonoscopy 04/05/2022 04/05/2012 Colorectal Cancer Screening 04/05/2022 Influenza Immunization (#1) 2024 12/0 09/2011, 03/04/2012 SARS-COV-2 Immunization ( season) 2024 12/02/2020 Td Immunization Every 10 Yea rs (Adults With 1 Tdap) 04/23/2028 04/23/2018, 10/05/2011, 07/12/2003 Respiratory Syncytial Virus (RSV) Immunization (Adult) (1 - 1-dose 75+ series) 06/24/2051 Hepatitis B Immunization Completed 004, 08/17/2003, 07/12/2003 DTaP/Tdap/Td Immunization Discontinued 2018, 10/05/2011, 07/12/2003 Human Papillomavirus (HPV) Immunization (No Doses Required) Completed Meningococcal Immunization (ACWY) Aged Out No longer eligible based on patient's age to complete this topic Pneumococcal Immunization Combined Aged Out No longer eligible based on patient's age to complete this topic Rotavirus Immunization Aged Out No lo nger eligible based on patient's age to complete this topic Procedures Procedure Name Priority Date/Time Associated Diagnosis Comments POC GROUP A STREP BY MOLECULAR Routine 03/16/2025 1:25 PM SUPPORT ARCHITECT Sore throat TB INTRADERMAL TEST Routine 02/14/2025 1 2:49 PM SUPPORT ARCHITECT PPD screening test HUMAN PAPILLOMA VIRUS (HPV) Routine 02/06/2016 11:00 AM SUPPORT ARCHITECT Encounter for screening for malignant neoplasm of cervix Encounter for screening for human papillomavirus (HPV) PATHOLOGY CYTOLOGY [place] Routine 02/06/2016 11:00 AM SUPPORT ARCHITECT Encounter for screening for malignant neoplasm of cervix Encounter for screening for human papillomavirus (HPV) CA COLONOSCOPY FLX DX W/COLLJ SPEC WHEN PFRMD Routine 04/05/2012 from Last 3 Months or Most Recently Relevant to Health Maintenance Results * POC GROUP A STREP BY MOLECULAR (03/16/2025 1:25 PM SUPPORT ARCHITECT) STREP A DNA Negative Negative, Invalid PROCEDURE CONTROL Valid 03/16/2025 1:25 PM SUPPORT ARCHITECT us Maribell Dhillon CIVIL SERVICE CLERK, SANE RN POINT OF CARE TEST ING (MANUAL) Final Result * TB INTRADERMAL TEST (02/14/2025 12:49 PM SUPPORT ARCHITECT) TB SKIN TEST 0 mm Comment:negative 02/14/2025 12:4 9 PM SUPPORT ARCHITECT Maribell Crawford Alejo CIVIL SERVICE CLERK, SANE RN POINT OF CARE TEST ING (MANUAL) Final Result * PATHOLOGY CYTOLOGY [place] (02/06/2016 11:00 AM SUPPORT ARCHITECT) SPECIMEN ADEQUACY Satisfactory for evaluation. Endocervical cells present. 02/17/2016 2:26 PM SUPPORT ARCHITECT [facility] DESCRIPTIVE DIAGNOSIS Negative for intraepithelial lesions. No dysplastic cells present. 02/17/2016 2:26 PM SUPPORT ARCHITECT [facility] at 1426 SUPPORT ARCHITECT AUTOMATED EXAMINATION Analysis of this sample has been assisted by an automated imaging and review system ([employer], [employer], [place], [place]). This case is further evaluated and finalized by a portable sawyer and/or pathologist. 02/17/2016 2:26 PM SUPPORT ARCHITECT [facility] DISCLAIMER The PAP smear is a screening test designed to detect cancerous or precancerous cells of the uterine cervix. It is one of the best means available for detection of cervical cancer but still carries an inherent false-negative rate. The consequences of a false-negative PAP result can be minimized by adhering to current screening guidelines. The following are general guidelines recommended by the ACS, ASCP, ASCCP, and ACOG: PAP testing is recommended every three years for women 21-29, Co-Testing, a PAP test in conjunction with an HPV (Human Papillomavirus) test for women ages 30-65, and no PAP or HPV testing for women under the age of 21 or older than 65 unless clinically indicated. 02/17/2016 2:26 PM SUPPORT ARCHITECT [facility] Case Report Gynecologic Cytology Report Case: [id number] Authorizing Provider: Yulissa Fontanez MD Collected: 02/06/2016 11:00 AM First Screen: Beka Carrington Received: 02/06/2016 04:01 PM Rescreen: Dario Gentile. Specimen: Vaginal/Cervical, liquid based thin layer preparation (Thin Prep ), CERVIX/VAGINAL 02/17/2016 2:26 PM SUPPORT ARCHITECT [facility] HPV Reflex if ASCUS? No 02/17/2016 2:26 PM SUPPORT ARCHITECT [facility] Specimen of unknown material (specimen) SPECIMEN FROM CERVIX OR VAGINA / Unknown 02/06/2016 11:00 AM SUPPORT ARCHITECT 02/06/2016 4:01 PM SUPPORT ARCHITECT us Yulissa Fontanez MD PATHOLOGY/CYTOLOGY ORDERABL ES Final Result [facility] [address] [place] [address], [place] * HUMAN PAPILLOMA VIRUS (HPV) (02/06/2016 11:00 AM SUPPORT ARCHITECT) HPV OTHER HIGH RISK TYPES, PCR NEGATIVE NEGATIVE 02/10/2016 2:56 PM SUPPORT ARCHITECT [facility] Comment: The following Other High Risk types were not detected: 31, 33, 35, 39, 45, 51, 52, 56, 58, 59, 66, and 68. A negative high-risk HPV result does not exclude the possibility of future cytologic HSIL or underlying CIN2-3 or cancer. The presence of PCR inhibitors may cause false negative or invalid results. If concentrations of whole blood in the sample exceed 1.5% (dark red or brown coloration) in PreservCyt solution, there is a likelihood of obtaining a false-negative result. HPV TYPE 16 NEGATIVE NEGATIVE 02/10/2016 2:56 PM SUPPORT ARCHITECT [facility] Comment: A negative high-risk HPV result does not exclude the possibility of future cytologic HSIL or underlying CIN2-3 or cancer. The presence of PCR inhibitors may cause false negative or invalid results. If concentrations of whole blood in the sample exceed 1.5% (dark red or brown coloration) in PreservCyt solution, there is a likelihood of obtaining a false-negative result. HPV TYPE 18 NEGATIVE NEGATIVE 02/10/2016 2:56 PM SUPPORT ARCHITECT [facility] Comment: A negative high-risk HPV result does not exclude the possibility of future cytologic HSIL or underlying CIN2-3 or cancer. The presence of PCR inhibitors may cause false negative or invalid results. If concentrations of whole blood in the sample exceed 1.5% (dark red or brown coloration) in PreservCyt solution, there is a likelihood of obtaining a false-negative result. Specimen of unknown material (specimen) Non-Phlebotomy Collection / Unknown 02/06/2016 11:00 AM SUPPORT ARCHITECT 02/06/2016 4:01 PM SUPPORT ARCHITECT Narrative [facility] - 02/10/2016 2:56 PM SUPPORT ARCHITECT Performed by Real-Time Polymerase Chain Reaction (PCR) on the [employer] [address]. us Yulissa Fontanez MD LAB SEND OUTS Final Resul t [facility] [address] [place] [address], [place] * COLONOSCOPY,DIAGNOSTIC (04/05/2012) Gilberto Jones MD [place] - SURGERY Final Result from Last 3 Months or Most Recently Relevant to Health [place] [id number] [facility] [address] [place] [id number] [facility]IC Advance Directives * Full Code (Latest Code Status on File) Date Activated Date Inactivated Comments 06/09/2013 6:50 AM 06/09/2013 1:08 PM Care Teams Engine House Helper Relationship Specialty Start Date End Date Jessica Lopez PA PCP - General Family Medicine 09/24/21
--- OUTSIDE RECORDS SUMMARY | 2025-03-27 15:43 | XMS_ITS | Clinical Summary ---
Author Organization [facility] ospital Address [address] [place] [address] Care Team Providers Care Manager General Name Role Phone MichellekavehJessica Primary Care Pr ovider Lisa Amato Unavailable [phone] Allergies Active Allergy Reactions Criticality Noted Date Comments Gluten Rash Medium 05/24/2017 Medications ergocalciferol (VITAMIN D) 50,000 unit capsuleIndicati ons:Vitamin D Deficiency Take 1 capsule (50,000 Units total) by mouth once a week Wednesday Active levothyroxine (SYNTHROID) 75 mcg tabletIndicatio ns:hypothyroidi sm Take 1 tablet (75 mcg total) by mouth corporate consultant before breakfast Active valACYclovir (VALTREX) 1 gram [...] Department Care Team Description 03/15/2025 10:15 AM DRAW OFF WORKER Therapy [facility] Physical Therapy [facility] [place] [address] Alena Kent, PT Separation of abdominal muscles (Primary Dx) 03/08/2025 1:00 PM DRAW OFF WORKER Therapy [facility] [place] [address] Alena Kent, PT Separation of abdominal muscles (Primary Dx) 03/02/2025 1:00 PM DRAW OFF WORKER Therapy [facility] - [place] [address] [place] [place] [address] Alena Kent, BRENDA Separation of abdominal muscles (Primary Dx) 03/02/2025 Results Follow-Up [facility] Sports Medicine and Primary Care at [address] [place] [address] Sivakumar Dodson DO NM Bone Imaging Whole Body 03/01/2025 11:11 AM DRAW OFF WORKER - 03/01/2025 11:59 PM DRAW OFF WORKER Hospital Encounter [facility] [address] [place] [address] Discharge Disposition: Discharge to home or self care 03/01/2025 11:11 AM DRAW OFF WORKER - 03/01/2025 11:59 PM DRAW OFF WORKER Hospital Encounter [facility] [address] [place] [address] Lesion of bone of left lower leg; Internal derangement of left knee; Patellofemoral syndrome of left knee Discharge Disposition: Discharge to home or self care 02/14/2025 Orders Only [facility] Primary Care at [address] [place] [phone] Sivakumar Dodson DO Lesion of bone of left lower leg (Primary Dx); Internal derangement of left knee; Patellofemoral syndrome of left knee 02/14/2025 Telephone [facility] [address] [facility] [address] [id number] Sivakumar Dodson DO 02/09/2025 9:02 AM DRAW OFF WORKER - 02/09/2025 11:59 PM DRAW OFF WORKER Hospital Encounter [facility] [address] [place] [address] Lesion of bone of left lower leg; Internal derangement of left knee; Patellofemoral syndrome of left knee Discharge Disposition: Discharge to home or self care 02/09/2025 Results Follow-Up [facility] and Primary Care at [address] [place] [phone] Sivakumar Dodson DO MRI Knee Left W WO Contrast 02/08/2025 Telephone [facility] Medicine [facility] Primary Care at [address] [place] [address] Alessandra Beck MA Approved MRI left knee with contrast 02/07/2025 10:00 AM DRAW OFF WORKER Office Visit [facility] Primary Care at [address] [place] [address] Sivakumar Dodson, Lesion of bone of left lower leg (Primary Dx) 02/07/2025 Orders Only [facility] Medicine and Primary Care at [address] [place] [address] Sivakumar Dodson, Lesion of bone of left lower leg (Primary Dx); Internal derangement of left knee; Patellofemoral syndrome of left knee 01/31/2025 1:00 PM DRAW OFF WORKER Therapy [facility] [place] [address] Alena Kent, PT Separation of abdominal muscles (Primary Dx) 01/24/2025 2:45 PM CDT Therapy [facility] [place] [address] Alena Kent, PT Separation of abdominal muscles (Primary Dx) 01/24/2025 Plan of Care Documentation [facility] [place] [address] 01/08/2025 11:00 AM CDT Therapy [facility] [place] [address] Alena Kent, PT S/P medial meniscectomy of left knee (Primary Dx); Complex tear of medial meniscus of left knee as current injury, subsequent encounter 01/05/2025 2:30 PM CDT Therapy [facility] [place] [address] Alena Kent, PT S/P medial meniscectomy of left knee (Primary Dx); Complex tear of medial meniscus of left knee as current injury, subsequent encounter 12/28/2024 1:00 PM CDT Therapy [facility] [place] [address] Alena Kent, PT S/P medial meniscectomy of [...] on file Legal Sex Female 10:54 AM DRAW OFF WORKER Gender Identity Not on file Sexual Orientation Not on file Obstetrics History Para Term AB IAB SAB Ectopic Multiple Livin g Live Births 1 Date Outcome GA Total Labor Labor/2nd/3rd Weight Sex Type Anes PTL Emilee A1 A5 Name Clin Last Filed Vital Signs Vital Sign Reading Time Taken Comments Blood Pressure 137/92 02/07/2025 10:07 AM DRAW OFF WORKER Pulse 90 02/07/2025 10:07 AM DRAW OFF WORKER Temperature 36.3 C (97.4 F) 11/30/2024 4:15 PM CDT Respiratory Rate 20 11/30/2024 4:15 PM CDT Oxygen Saturation 96% 11/30/2024 4:15 PM CDT Inhaled Oxygen Concentration - - Weight 141.5 kg (312 lb) 02/07/2025 10:07 AM DRAW OFF WORKER Height 170.2 cm (5' 7) 12/14/2024 11:21 [...] Read Routine (OP Routine) 03/01/2025 3:16 PM DRAW OFF WORKER Lesion of bone of left lower leg Internal derangement of left knee Patellofemoral syndrome of left knee MRI KNEE LEFT W WO CONTRAST Schedule MOE, Read MOE (Appt Today, Awaiting Results) 02/09/2025 10:23 AM DRAW OFF WORKER Lesion of bone of left lower leg Internal derangement of left knee Patellofemoral syndrome of left knee from Last 3 Months Results * NM Bone Imaging Whole Body (03/01/2025 3:16 PM DRAW OFF WORKER) Anatomical Region Laterality Modality N/A Nuclear Medicine 03/01/2025 3:34 PM DRAW OFF WORKER Impressions 03/01/2025 3:34 PM DRAW OFF WORKER 1. No abnormal radiotracer uptake of the proximal left tibial lesion. 2. Mild right paravertebral activity in the thoracic spine likely degenerative. 3. No evidence of osteoblastic metastatic disease. Electronically signed by: Shaan Alegre M.D. Narrative 03/01/2025 3:34 PM DRAW OFF WORKER EXAM DESCRIPTION: NM BONE IMAGING WHOLE BODY [...] Left W WO Contrast (02/09/2025 10:23 AM DRAW OFF WORKER) Anatomical Region Laterality Modality Lower Extremities Left Magnetic Reson ance 02/09/2025 10:5 1 AM DRAW OFF WORKER Impressions 02/09/2025 10:51 AM DRAW OFF WORKER 1. Interval partial left medial meniscectomy with [...] Sivakumar Leyva M.D. Narrative 02/09/2025 10:51 AM DRAW OFF WORKER EXAMINATION: 1. MRI left knee with without [...] al Result from Last 3 Months Insurance [facility] [place] Care Teams Manager General Relationship Specialty Start Date End Date Jessica Lopez PA PCP - General 10/10/18 Lisa Amato PA [address] [place] [address] [place] [address] Physician Vest Tailor Orthopedic Surgery 11/30/24
--- OUTSIDE RECORDS SUMMARY | 2025-03-27 15:43 | XMS_ITS | Encounter Summary ---
Author Organization [facility] Address [address] [place] [address] Care Team Providers Care Water Control Supervisor Name Role Phone MichelleAlcides linncaprice HARRIS Primary Care Pr ovider Lisa Amato Unavailable [phone] Reason for Visit * Auth/Cert (Routine) Specialty Diagnoses / Procedures Referred By Contedna t Referred To Contact Diagnoses Encounter for screening colonoscopy Encounter for screening colonoscopy [Z12.11] Procedures FL COLONOSCOPY FLX DX W/COLLJ SPEC WHEN PFRMD COLONOSCOPY Referral ID Status Reason Start Date Expiration Date Visits Re quested Visits Authorized [id number] 1 1 Encounter Details Date Type Department Care Team (Late st Contact Info) Description 04/03/2024 Hospital Encounter [facility] [address] [place] [address] Love Parks MD [address] [place] [address] DR SIMPSON [address] [place] [id number] Social History Tobacco Use Types Packs/Day Years [...] on file Legal Sex 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 Gender Identity Not on file Sexual Orientation Not on file documented as of this encounter Plan of Treatment Not on file documented as of this encounter Visit Diagnoses Diagnosis Encounter for screening colonoscopy- Primary documented in this encounter Admitting Diagnoses Diagnosis Encounter for screening colonoscopy documented in this encounter Care Teams Water Control Supervisor Relationship Specialty Start Date End Date Jessica Lopez PA PCP - General 10/10/18 Lisa Amato PA [address] [facility] [address] SIMPSON [address] [place] [id number] Physician Sand Miller Orthopedic Surgery 11/30/24 documented as of this encounter
--- OUTSIDE RECORDS SUMMARY | 2025-03-27 15:43 | XMS_ITS | Encounter Summary ---
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 N ROASTER * Telephone Encounter - Lisa Avalos - 03/06/2025 3:29 PM CST Patient left message stating she is returning our call N ROASTER * Result Encounter Note - Vanessa Glynn MA - 03/06/2025 10:38 AM CST Left message for patient to return my call for results. N ROASTER * Result Encounter Note - Vanessa Glynn MA - 03/02/2025 11:51 AM CST Unable to contact patient or leave a message. Mailbox is full and cannot leave a message. N ROASTER documented in this encounter Plan of Treatment Not on file documented as of this encounter Visit Diagnoses Not on filedocumented in this encounter Care Teams Nuclear Equipment Design Engineer Relationship Specialty Start Date End Date Jessica Lopez PA PCP - General 10/10/18 Lisa Amato PA [address] [place] [address] DR SIMPSON [address] [place] [id number] Physician Dean Of Instruction Orthopedic Surgery 11/30/24 documented as of this encounter
--- OUTSIDE RECORDS SUMMARY | 2025-03-27 15:43 | XMS_ITS | Data Portability ---
Author Organization [facility] [place] Curry Address [address] [facility] [place] [address] Care Team Providers Care Drum Straightener Name Role Phone UGO ORELLANA Primary Care Provider Unavailab le Assessment Encounter Date Assessment Date Assessment LastModified by Organization Details LastModified Time 07/13/2023 07/13/2023 Mammogram due early september and scheduled pap smear is august 2023 eye exam UTD just completed dental every 6 months. Colonoscopy still due. needs to [facility]chedule[email or web address] Not available 07/13/2023 11:08:47 02/10/2024 02/10/2024 Mammogram due early september and scheduled pap smear is august 2023 eye exam UTD just completed dental every 6 months. Colonoscopy scheduled mar 2024 labs reviewed at appt. Not available 02/10/2024 12:44:34 09/26/2024 09/26/2024 Mammogram UTD pap smear is due eye exam UTD just completed dental every 6 months. Colonoscopy still to be [facility]cheduled[facility] 09/26/2024 15:44:24 Plan of Treatment Reminders Order Date Submit Date Provider Last Modified By Organization Details Last Modified Time Details Appointments None record ed. Lab cortis ol, am, serum 2024 025 KAELA Sunny [facility], [address] [place], [address], 10:58:23 cortis ol, serum or plasma 2024 025 [email or web address], [address] [place], [address], 5 14:12:05 HbA1c (hemog lobin A1c), blood 2023 025 KAELA Correa [facility], [address] [facility] [place], [address], 5 10:48:50 insuli n, serum 2023 025 jaxon Correa [facility], [address] [facility] [place], [address], 5 12:24:23 CBC w/ auto diff 2023 025 [email or web address] [facility], [address] [facility] [address], [place], [address], 5 15:38:34 CMP, serum or plasma 2023 025 [facility], [address] [facility] [address], [place], [address], 15:38:34 TSH + free T4, serum 2023 025 jaxon Correa [facility], [address] [facility] [place], [address], 11:25:29 iron + TIBC + ferrit in, serum 2023 024 KAELA [facility], [address] [facility] [address], [place], [address], 4 12:37:04 CBC w/ auto diff 2023 024 KAELA [facility], [address] [facility], [facility], [place], [address], 4 12:37:03 TSH + free T4, serum 2023 024 KAELA [facility], [address] [facility], [facility] [address], [place], [address], 4 12:37:01 Referral None record ed. Procedures polyso mnogra phy, titrat ion study (PROC) 2024 025 [email or web address] [facility], [address] [facility] , [place], [address], 5 03:33:27 colono scopy screen ing (PROC) 2023 024 [email or web address] [facility], 4 [facility] , [address], [place], [address], 5 16:07:59 Surgeries None record ed. Imaging US, duplex , venous , lower extrem ity, unilat eral 2023 024 [facility], [address], [place], [address], 4 14:06:49 XR, knee, 3 view 2023 024 [facility] (Imaging), [address], [place], [address], 4 12:16:49 US, upper back 2023 024 [facility], Imaging Dept., 1 [facility] , [place], [address], 4 07:08:40 Medication Orders valacy clovir 1 gram tablet 2024 025 [facility], [address], [place], [address], 5 15:42:27 ergoca lcifer ol (vitam in D2) 1,250 mcg (50,00 0 unit) capsul e 2024 025 [facility], [address], [place], [address], 5 15:31:26 Euthyr ox 75 mcg tablet 2024 [facility], [address] [place], [place], [address], 5 15:29:37 Zepbou nd 2.5 mg/0.5 mL subcut aneous pen inject or 2024 [facility], [address] [place], [place], [address], 5 15:29:29 valacy clovir 1 gram tablet 2023 [facility], [address] [place], [place], [address], 5 15:22:37 Airsup ra 90 mcg-80 mcg/ac tuatio n HFA aeroso l inhale r 2023 [facility], [address] [place], [place], [address], 4 15:29:15 metfor min ER 500 mg tablet ,exten ded releas e 24 hr 2023 [facility], [address] [place], [place], [address], 5 15:21:45 Patient TargetsNo targets recorded. Patient Instructions Encounter Date Encounter Id Patient Instructions Last Modified By Organization Details Last Modified Time 02/10/2024 [id number] A healthy lifestyle: care instructions Not available 02/10/2024 12:42:24 09/26/2024 [id number] A healthy lifestyle: care instructions Not available 09/26/2024 15:42:14 11/28/2024 [id number] A healthy lifestyle: care instructions Not available 11/28/2024 16:05:27 Reason for Referral None Reported. Results Created Date Observation Date Name Description Value Unit Range Abnormal Flag Note LastModifiedBy Organization Detail LastModifiedTime 01/06/2001/07/2024 TSH+F REE T4 TSH 1.680 uIU/m L 0.450- 4.500 Not Available [facility] ([facility]) [address] [facility], [place], [address], 01/07/2024 12:37:01 01/06/2001/07/2024 TSH+F REE T4 T4,free(dire ct) 0.98 NG/dL 0.82-1 .77 Not Available [facility] ([facility]) [address] [facility], [place], [address], 01/07/2024 12:37:01 01/06/2001/07/2024 HEMOG LOBIN A1C hemoglobin A1C 6.2 % 4.8-5. 6 above high normal Predi abete s: 5.7 - 6.4 Diabe seven: >6.4 Glyce rolando contr ol for adult s with diabe seven: <7.0 Not Available [facility] ([facility]) [address] [facility], [place], [address], 01/07/2024 12:37:02 01/06/20 24 01/07/2024 CBC WITH DIFFE RENTI AL/PL ATELE T WBC 5.7 x10e3 /uL 3.4-10 .8 Not Available [facility] ([facility]) [address] [facility], [place], [address], 01/07/2024 12:37:03 01/06/20 24 01/07/2024 CBC WITH DIFFE RENTI AL/PL ATELE T RBC 4.65 x10e6 /uL 3.77-5 .28 Not Available [facility] ([facility]) [address] [facility], [place], [address], 01/07/2024 12:37:03 01/06/20 24 01/07/2024 CBC WITH DIFFE RENTI AL/PL ATELE T hemoglobin 12.5 g/dL 11.1-1 5.9 Not Available [facility] ([facility]) [address] [facility], [place], [address], 01/07/2024 12:37:03 01/06/2001/07/2024 CBC WITH DIFFE RENTI AL/PL ATELE T hematocrit 39.5 % 34.0-4 6.6 Not Available [facility] ([facility]) [address] [facility], [place], [address], 01/07/2024 12:37:03 01/06/2001/07/2024 CBC WITH DIFFE RENTI AL/PL ATELE T MCV 85 fL 79-97 Not Available [facility] ([facility]) [address] [facility], [place], [address], 01/07/2024 12:37:03 01/06/2001/07/2024 CBC WITH DIFFE RENTI AL/PL ATELE T MCH 26.9 pg 26.6-3 3.0 Not Available [facility] ([facility]) [address] [facility], [place], [address], 01/07/2024 12:37:03 01/06/2001/07/2024 CBC WITH DIFFE RENTI AL/PL ATELE T MCHC 31.6 g/dL 31.5-3 5.7 Not Available [facility] ([facility]) [address] [facility], [place], [address], 01/07/2024 12:37:03 01/06/2001/07/2024 CBC WITH DIFFE RENTI AL/PL ATELE T RDW 14.3 % 11.7-1 5.4 Not Available [facility] ([facility]) [address] [facility], [place], [address], 01/07/2024 12:37:03 01/06/2001/07/2024 CBC WITH DIFFE RENTI AL/PL ATELE T platelets 209 x10e3 /uL 150-45 0 Not Available [facility] ([facility]) [address] [facility], [place], [address], 01/07/2024 12:37:03 01/06/2001/07/2024 CBC WITH DIFFE RENTI AL/PL ATELE T neutrophils 57 % notest ab. Not Available [facility] ([facility]) [address] [facility], [place], [address], 01/07/2024 12:37:03 01/06/2001/07/2024 CBC WITH DIFFE RENTI AL/PL ATELE T lymphs 34 % notest ab. Not Available [facility] ([facility]) [address] [facility], [place], [address], 01/07/2024 12:37:03 01/06/20 24 01/07/2024 CBC WITH DIFFE RENTI AL/PL ATELE T monocytes 6 % notest ab. Not Available [facility] ([facility]) [address] [facility], [place], [address], 01/07/2024 12:37:03 01/06/2001/07/2024 CBC WITH DIFFE RENTI AL/PL ATELE T eos 2 % notest ab. Not Available [facility] ([facility]) [address] [facility], [place], [address], 01/07/2024 12:37:03 01/06/20 24 01/07/2024 CBC WITH DIFFE RENTI AL/PL ATELE T basos 1 % notest ab. Not Available [facility] ([facility]) [address] [facility], [place], [address], 01/07/2024 12:37:03 01/06/2001/07/2024 CBC WITH DIFFE RENTI AL/PL ATELE T neutrophils (absolute) 3.3 x10e3 /uL 1.4-7. 0 Not Available [facility] ([facility]) [address] [facility], [place], [address], 01/07/2024 12:37:03 01/06/2001/07/2024 CBC WITH DIFFE RENTI AL/PL ATELE T lymphs (absolute) 1.9 x10e3 /uL 0.7-3. 1 Not Available [facility] ([facility]) [address] [facility], [place], [address], 01/07/2024 12:37:03 01/06/2001/07/2024 CBC WITH DIFFE RENTI AL/PL ATELE T monocytes(ab solute) 0.4 x10e3 /uL 0.1-0. 9 Not Available [facility] ([facility]) [address] [facility], [place], [address], 01/07/2024 12:37:03 01/06/20 24 01/07/2024 CBC WITH DIFFE RENTI AL/PL ATELE T eos (absolute) 0.1 x10e3 /uL 0.0-0. 4 Not Available [facility] ([facility]) [address] [facility], [place], [address], 01/07/2024 12:37:03 01/06/20 24 01/07/2024 CBC WITH DIFFE RENTI AL/PL ATELE T baso (absolute) 0.0 x10e3 /uL 0.0-0. 2 Not Available [facility] ([facility]) [address] [facility], [place], [address], 01/07/2024 12:37:03 01/06/20 24 01/07/2024 CBC WITH DIFFE RENTI AL/PL ATELE T immature granulocytes 0 % notest ab. Not Available [facility] ([facility]) [address] [facility], [place], [address], 01/07/2024 12:37:03 01/06/20 24 01/07/2024 CBC WITH DIFFE RENTI AL/PL ATELE T immature grans (abs) 0.0 x10e3 /uL 0.0-0. 1 Not Available [facility] ([facility]) [address] [facility], [place], [address], 01/07/2024 12:37:03 01/06/2001/07/2024 FE+TI BC+FE R iron bind.cap.(TI BC) 328 ug/dL 250-45 0 Not Available [facility] ([facility]) [address] [facility], [place], [address], 01/07/2024 12:37:03 01/06/2001/07/2024 FE+TI BC+FE R UIBC 261 ug/dL 131-42 5 Not Available [facility] ([facility]) [address] [facility], [place], [address], 01/07/2024 12:37:03 01/06/2001/07/2024 FE+TI BC+FE R iron 67 ug/dL 27-159 Not Available [facility] ([facility]) [address] [facility], [place], [address], 01/07/2024 12:37:03 01/06/2001/07/2024 FE+TI BC+FE R iron saturation 20 % 15-55 Not Available [facility] ([facility]) [address] [facility], [place], [address], 01/07/2024 12:37:03 01/06/2001/07/2024 FE+TI BC+FE R ferritin 40 NG/mL 15-150 Not Available [facility] ([facility]) [address] [place], [address], 01/07/2024 12:37:03 09/08/19 24 09/06/2023 US, upper back No observ ation record ed. [email or web address] [address] [place], [address], 09/09/2023 16:43:49 09/22/19 24 09/22/2023 MRI, thora cic spine , w/wo contr ast No observ ation record ed. [address] [place], [address], 09/22/2023 15:54:34 02/10/20 24 02/10/2024 US, duple x, venou s, lower extre mity, unila teral No observ ation record ed. [facility] [address], [place], [address], 02/10/2024 17:10:00 02/11/20 24 02/10/2024 XR, knee, 3 view No observ ation record ed. [facility] ([facility]) [address], [place], [address], 02/18/2024 14:00:26 05/20/19 25 05/16/2024 XR, chest , 2 view No observ ation record ed. [email or web address] [address] [place], [address], 05/29/2024 12:48:49 01/17/20 25 01/15/2025 MAMMO , scree saul, digit al, bilat eral No observ ation record ed. [email or web address] [facility] [address], [place], [address], 01/16/2025 13:50:33 03/01/20 25 03/01/2025 NM, bone scan, whole body No observ ation record ed. [address] [place], [address], 03/05/2025 09:57:21 Result Notes None recorded. Problems Name Problem SNOMED Code Status Onset Date Resolution Date Notes Provider Name and Address Organization Details Recorded Time Obstructive sleep apnea syndrome 08225462 Active 2023 KIMBERLY Moore Attn: Garrison g,[address] [facility], [place], [address], [place] [facility] 5 16:59:38 Hypothyroidism 69861585 Active 2023 Elaine God[place], [place] [facility] 4 16:44:39 Polycystic ovary syndrome 331286272 Active 2023 [place] [facility] 4 16:44:45 Hyperlipidemia 30135345 Active 2023 [place] [facility] 4 16:44:53 Vitamin D deficiency 05276295 Active 2023 [place] [facility] 4 16:45:02 Body mass index 40+ - severely obese 688624263 Active 2023 Elba Barrios [place] null, [place] [facility] 4 12:19:35 Obesity 050341299 Active 2023 KIMBERLY Moore Attn: Garrison dominguez,[address] [place], [address], [place] [facility] 4 12:29:02 Long-term drug therapy Active 2023 KIMBERLY Moore Attn: Garrison dominguez,[address] [place], [address], [place] [facility] 4 11:46:55 Obese class III 522136752 Active 2024 KIMBERLY Moore Attn: Garrison dominguez,[address] [place], [address], [place] [facility] 5 15:42:03 Prediabetes 343288179 Active 2024 KIMBERLY Moore Attn: Garrison g,[address] [place], [address], [place] [facility] 5 15:42:04 Herpes labialis 2879968 Active 2024 KIMBERLY Moore Attn: Garrison dominguez,[address] [place], [address], [facility] 5 15:42:08 Problem Notes None recorded. Procedures Surgical History Date Name Laterality Status Provider Name and Address Organization Details Recorded Time Knee Surgery completed Dwightroneymitch JAZMÍN Barrios [facility] 07/13/2023 11:42:40 Tonsillectomy completed Elba Barrios MA [facility] 07/13/2023 11:42:47 vaginal section completed Elba Barrios MA [facility] 07/13/2023 11:43:05 D & c after delivery completed Elba Barrios MA [facility] 07/13/2023 11:43:11 Imaging Results None recorded. Procedure Notes None recorded. Medical Equipment None Reported. Allergies Allergen ID Allergen Name Allergen Category Reaction Reaction Severity Criticality Documentation Date Start Date Code Code System Note Provider Name and Address Organization Details Recorded Time 377291 wheat gluten extract food Not available Not available Not available 07/13/2023 23862 81 RxNorm Elba Barrios MA null, [facility] 4 11:42:22 661574 Gluten (substanc e) food,medi cation hives Not available high 01/22/20252013 53122 004 SNOMED Not Available kaela - External Data Service - prod 11:29:27 971899 Paxlovid medicatio n hives moderate Not available 03/27/20252024 Jess Barajas RN null, [facility] 14:40:23 Medications Name Sig Start Date Stop Date [...] Updated DateTime 4 170.18 cm 49.3 kg/m2 465360. 6 g 18 /min 86 /min 98 % 112/68 mm[Hg] Elba Barrios MA [facility] 4 10:58:07 Date Recorded Respiratory rate Systolic And Diastolic Provider Name and Address Organization Details Last Updated DateTime 09/26/2024 18 /min 120/80 mm[Hg] KIMBERLY Moore Attn: Accounting[address] [place], [address], [facility] 09/26/2024 15:43:55 Date Recorded Body height Body mass index (BMI) Body weight Oxygen saturation Heart rate Systolic And Diastolic Provider Name and Address Organization Details Last Updated DateTime 5 170.18 cm 47.9 kg/m2 964897. 27 g 99 % 91 /min 108/82 mm[Hg] Elba Barrios MA [facility] 5 15:26:01 Date Recorded Systolic And Diastolic Provider Name and Address Organization Details Last Updated DateTime 11/28/2024 122/82 mm[Hg] KIMBERLY Moore Attn: Accounting,[address] [place], [address], [facility] 11/28/2024 16:02:39 Date Recorded Body height Body mass index (BMI) Body weight Respiratory rate Oxygen saturation Heart rate Systolic And Diastolic Provider Name and Address Organization Details Last Updated DateTime 5 170.18 cm 49.3 kg/m2 048795. 6 g 18 /min 97 % 77 /min 116/82 mm[Hg] Elba Barrios MA [facility] 15:34:47 Date Recorded Systolic And Diastolic Provider Name and Address Organization Details Last Updated DateTime 02/10/2024 130/80 mm[Hg] KIMBERLY Moore Attn: Accounting,[address] [place], [address], [facility] 02/10/2024 12:43:18 Date Recorded Body height Body mass index (BMI) Body weight Respiratory rate Oxygen saturation Heart rate Systolic And Diastolic Provider Name and Address Organization Details Last Updated DateTime 4 170.18 cm 47.3 kg/m2 802894. 9 g 18 /min 98 % 78 /min 130/82 mm[Hg] Elba Barrios MA [facility] 4 12:26:53 Date Recorded Body temperature Systolic And Diastolic Provider Name and Address Organization Details Last Updated DateTime 02/28/2024 98 [degF] 110/70 mm[Hg] KIMBERLY Moore Attn: Accounting[address] [place], [address], [facility] 02/28/2024 15:30:39 Date Recorded Body height Body mass index (BMI) Body weight Respiratory rate Oxygen saturation Heart rate Systolic And Diastolic Provider Name and Address Organization Details Last Updated DateTime 4 170.18 cm 47.5 kg/m2 547861. 49 g 18 /min 99 % 84 /min 126/82 mm[Hg] Elba Barrios [place] [facility] 15:18:41 Social History Question Answer Notes LastModified by Organizat ion Details LastModified Time Tobacco Smoking Status Former Smoker Elba Barrios MA null, [facility] 07/13/2023 10:50:18 Are You Blind [...] Functional Status Question Answer Note LastModified by Restoriusizat ion Details LastModified Time Do you use [...] Response Coronary Artery Disease N Other N High Blood Pressure N Atrial Fibrillation N Kidney or Bladder Problems N Thyroid Problems Y GI Problems N Depression N COPD N Blood Clots N Skin Problems N Anemia N Heart Attack ([place]) N Anxiety Disorder N Diabetes N Muscle, Joint, or Bone Problems N Seizures/Epilepsy N Acid Reflux (GERD) N Cancer N Stroke N Asthma N Allergies N High Cholesterol N Hepatitis N Liver Disease N Headaches N Heart Failure N Osteoporosis N Gynecological History Statement/Question Response Flow Light [...] 02/09/2024 12:55:22 Tdap 04/23/2018 completed JAZMÍN Venegas, [place] [facility] 02/09/2024 12:55:22 Past Encounters Encounter ID Performer Location Encounter Start Date Encounter Closed Date Diagnosis/Indication Diagnosis SNOMED-CT Code Diagnosis ICD10 Code Diagnosis IMO Codes Diagnosis Note [id number] Sivakumar Zhao MD [facility] [employer] [facility] [address] [place] [address] 07/13/2023 10:34:56 07/13/2023 11:25:09 Adult health examination 252913101 Z00.01 wellness exam completed. she has many labs UTD already and reviewed at [facility]. Screening for malignant neoplasm of colon 538796232 Z12.11 refer for baseline colonoscop y screening. Obstructiv e sleep apnea syndrome 55539011 G47.33 tonsillect caty completed last summer. she did home sleep study, moderate case. still to schedule a cpap titration in lab. Prediabetes 721363726 R7 3.03 5.9% on labs. Polycystic ovary syndrome 043376936 E28.2 hx noted. Hypothyroidism 37205426 E03.9 on thyroid supplement . due for labs in july Vitamin D deficiency 347 35911 E55.9 on high dose weekly Rx. Long-term drug therapy 141020506 Z79.899 Dizziness 947667990 R42 screening iron studies and cbc. pt feels she may be anemic that is causing some dizziness. Mass of shaikh bcutaneous tissue of back 4151948640 94570 R22.2 check u/s of fatty density left upper back. [id number] Sivakumar Zhao MD [facility] [employer] [facility] [employer] [facility] [address] [place] [address] 02/10/2024 11:55:04 02/10/2024 13:03:30 Body mass index 40+ - severely obese 003507986 Z68.42 bmi 47.3 Obesity 657508913 E66.9 discussed healthy diet, exercise, controllin g carbohydra seven and added sugars in the diet Obstructiv e sleep apnea syndrome 86001904 G47.33 tonsillect caty completed last summer. she did home sleep study, moderate case. still to schedule a cpap titration in lab. Prediabetes 172097548 R7 3.03 6.2% on labs. Restart metformin ER 500 mg 2 tablets with dinner and then repeat A1c and fasting insulin labs in June Polycystic ovary syndrome 687950852 E28.2 hx noted. Hypothyroidism 36039903 E03.9 on thyroid supplement . due for labs again in June. Vitamin D deficiency 347 47620 E55.9 on high dose weekly Rx. Long-term drug therapy 705155948 Z79.899 CBC and CMP due in june labs Pain of left calf 331943 4981 200282 M79.662 refer for STAT venous duplex LLE. r/o DVT Injury of knee 018874588 S89.92XA refer for xrays left knee after injury. [id number] Sivakumar Zhao MD [facility] [employer] [address] [place] [address] 09/26/2024 15:15:50 09/26/2024 15:47:57 Vitamin D deficiency 87135662 E55.9 on high dose weekly Rx. Refill provided Hypothyroidism 34474906 E03.9 on thyroid supplement . Labs are stable. Refill medication Herpes labialis 3890358 B00.1 refill valtrex needed. Obese class III 16263940 5 E66.813 5160323720 bmi 47.9. start zepbound injectable therapy. no personal or family hx of Medullary thyroid cancer or MEN conditions . Prediabetes 016279447 R7 3.03 5.9% a1c Obstructiv e sleep apnea syndrome 86557895 G47.33 tonsillect caty completed last summer. she did home sleep study, moderate case obstructiv e sleep apnea. She would be a candidate for Zepbound therapy with the indication for obstructiv e sleep apnea and morbid obesity Polycystic ovary syndrome 221030385 E28.2 hx noted. Long-term drug therapy 602116147 Z79.899 Labs reviewed Abnormal weight gain 161 573295 R63.5 [id number] Patient request cortisol level testing Adult [facility] th examination 622616760 Z00.00 [id number] wellness exam completed. [id number] Sivakumar Zhao MD [facility] [employer] [address] [place] [address] 02/28/2024 15:09:34 02/28/2024 16:23:19 Herpes labialis 6077261 B00.1 refill valtrex needed. Upper resp iratory infection 57753733 J06.9 continue doxy 100mg bid course and finish prednisone 40mg last day dose tomorrow. Cough 44350063 R05.9 start Airsupra as directed. and Delsym OTC [id number] Sivakumar Zhao MD [facility] [employer] [address] [place] [address] 11/28/2024 15:08:15 11/28/2024 16:27:50 Obese class III 082217280 E66.813 E66.3 8579250394 bmi 49.3 Obstructiv e sleep apnea syndrome 19158802 G47.33 [id number] tonsillect caty completed last summer. she did home sleep study, moderate case obstructiv e sleep apnea. She would be a candidate for Zepbound therapy with the indication for obstructiv e sleep apnea and morbid obesity. She will need an in-lab CPAP sleep study with titration Hypothyroidism 34303773 E03.9 on thyroid supplement . Labs are stable. Prediabetes 426542325 R7 3.03 5.9% a1c Preprocedu ral examination done 7958136899 05681 Z01.818 051111 Preop exam completed Health Concerns Section Related Observation LastModified by Organization Detai ls LastModified Time None Recorded Concern Status LastModified by Organization Details LastModified Time None Recorded Advance Directives Directive None Recorded Payers Insurance Date Sequence Insurance Name Policy Number Policy Dangelo Covered Member ID Dangelo Member ID Guarantor Name 12/18/2024 1 [id number] [id number] Christel Anterhaus [id number] Christel Anterhaus 09/26/2024 1 [employer] [id number] Christel Anterhaus [id number] Christel Anterhaus Notes Date Note Type [...] Moore Attn: Accounting,[address], [place], [address], [facility] 07/27/2023 18:53:37 4 text/html Obstructive Sleep Apnea F/UReported by Patienttonsillectomy completed last summer. she did home sleep study, moderate case. still to schedule a cpap titration in lab. ThyroidReported by Patienton thyroid supplement. due for labs. Prediabetes insulin resistance polycystic ovarian history. Patient is interested in getting back on metformin therapy. He is also due for updated labs KIMBERLY Moore Attn: Accounting,[address] [facility], [place], [address], [facility] 02/26/2024 11:47:55 4 text/html Upper Respiratory SymptomsReported [...] Moore Attn: Accounting,[address], [place], [address], [place] [facility] 02/28/2024 15:41:52 5 text/html [...] A1c 5.9% indicating prediabetes. KIMBERLY Moore Attn: Accounting, [address], [place], [address], [place] [facility] 10/16/2024 08:29:47 5 text/html Obstructive Sleep Apnea F/UReported by Patienttonsillectomy completed last summer. she did home sleep study, moderate case. still to schedule a cpap titration in lab. ThyroidReported by PatientwireWAX thyroid supplement. Labs are up-to-date. On levothyroxine 75 mcg daily stable with no complaints Prediabetes insulin resistance polycystic ovarian history. Fasting insulin is upper limit of normal at 22. Thyroid function testing is normal, A1c 5.9% indicating prediabetes. KIMBERLY Moore Attn: Accounting,[address], [place], [address], [place] [facility] 12/17/2024 17:01:22 OBGyn Episode No OBEpisode recorded.
--- OUTSIDE RECORDS SUMMARY | 2025-03-27 15:43 | XMS_ITS | Clinical Summary ---
Author Organization [facility] Address [address] [place] [phone] Phone Care Team Providers Care Story Editor Name Role Phone Unavailable Primary Care Provider [...] 2024 03/04/2012 Insurance 99Jose CastrejonMatty LONG Da[place] [id number] [employer] [facility]
--- OUTSIDE RECORDS SUMMARY | 2025-03-27 15:43 | XMS_ITS | Clinical Summary ---
Author Organization [facility] Address [address] [place] [address] Care Team Providers Care Change Management Analyst Name Role Phone Pcp, No Primary Care Provider [phone] Social History Tobacco Use Types Packs/Day Years Used Date Smoking Tobacco: Never Assessed Comments Unknown Sex and Gender Information Value Date Recorded Sex Assigned at Not on file Legal Sex Female 3:05 PM EST Gender Identity Not on file Sexual Orientation Not on file Plan of Treatment Not on file Medical Devices Not on file Care Teams Change Management Analyst Relationship Specialty Start Date End Date PcpJeanette PCP - General Family Medicine 04/04/21
--- OUTSIDE RECORDS SUMMARY | 2025-03-27 15:44 | XMS_ITS | Data Portability ---
Author Organization [place] - [facility] [employer], Main Office Address [address] [place] [address] Assessment No assessment recorded. Plan of Treatment Reminders Order Date Submit Date Provider Last Modified By Organization Details Last Modified Time Details Appointments None recorded. Lab HbA1c (hemoglobin A1c), blood 2022 023 [facility] 146 Not available 16:13:58 CMP, serum or plasma 2022 023 [facility] 146 Not available 3 16:13:59 CBC w/ auto diff 2022 023 [facility] Not available 3 11:26:22 lipid panel, serum 2022 023 [facility] 146 Not available 3 16:13:58 TSH + free T4, serum 2022 023 [facility] 146 Not available 3 16:13:58 Referral None recorded. Procedures None recorded. Surgeries None recorded. Imaging None recorded. Medication Orders amoxicillin 875 mg-potassiu m clavulanate 125 mg tablet [address] [facility], [address], [place], [address], 3 16:11:34 prednisone 20 mg tablet [address] [facility], [address], [place], [address], 3 13:29:47 Patient TargetsNo targets recorded. Patient [...] is recom rodger arroyo (orde r code [id number] ). Pleas e note: patie nts being [...] s. [facility] order code 17330 -Estr adiol , Ultra sensi tive LC/MS /MS demon strat es negli gible cross react ivity with fulve stran t. Not Available [facility] [address], [place], [address], 12/26/2020 16:59:29 12/24/19 21 12/26/2020 PROGE STERO NE progesterone <0.5 NG/mL normal Refer ence Range s Femal e Folli cular Phase < 1.0 Lutea l Phase 2.6-2 1.5 Post menop ausal < 0.5 Pregn tobias 1st Trime ster 4.1-3 4.0 2nd Trime ster 24.0- 76.0 3rd Trime ster 52.0- 302.0 Not Available [address], [address], 12/26/2020 16:59:28 12/24/19 21 12/26/2020 INSUL IN [...] hamzah, gluli sine) . Not Available [address], [address], 12/26/2020 16:59:28 12/24/19 21 12/26/2020 REFLE XIVE URINE CULTU RE reflexive urine culture NO CULTU RE INDIC ATED Not Available [address], [address], 12/26/2020 16:59:27 12/24/19 21 12/26/2020 URINA LYSIS , COMPL ETE W/REF JULIUS TO CULTU RE color yellow yellow normal Not Available [address], [address], 12/26/2020 16:59:27 12/24/19 21 12/26/2020 URINA LYSIS , COMPL ETE W/REF JULIUS TO CULTU RE appearance clear clear normal Not Available [address], [address], 12/26/2020 16:59:27 12/24/19 21 12/26/2020 URINA LYSIS , COMPL ETE W/REF JULIUS TO CULTU RE specific gravity 1.026 1.001- 1.035 normal Not Available [address], [address], 12/26/2020 16:59:27 12/24/19 21 12/26/2020 URINA LYSIS , COMPL ETE W/REF JULIUS TO CULTU RE pH < or = 5.0 5.0-8. 0 normal Not Available [address], [address], 12/26/2020 16:59:27 12/24/19 21 12/26/2020 URINA LYSIS , COMPL ETE W/REF JULIUS TO CULTU RE glucose negati ve negati ve normal Not Available [address], [address], 12/26/2020 16:59:27 12/24/19 21 12/26/2020 URINA LYSIS , COMPL ETE W/REF JULIUS TO CULTU RE bilirubin negati ve negati ve normal Not Available [address], [address], 12/26/2020 16:59:27 12/24/19 21 12/26/2020 URINA LYSIS , COMPL ETE W/REF JULIUS TO CULTU RE ketones negati ve negati ve normal Not Available [address], [address], 12/26/2020 16:59:27 12/24/19 21 12/26/2020 URINA LYSIS , COMPL ETE W/REF JULIUS TO CULTU RE occult blood negati ve negati ve normal Not Available [address], [address], 12/26/2020 16:59:27 12/24/19 21 12/26/2020 URINA LYSIS , COMPL ETE W/REF JULIUS TO CULTU RE protein negati ve negati ve normal Not Available [address] [place], [address], 12/26/2020 16:59:27 12/24/19 21 12/26/2020 URINA LYSIS , COMPL ETE W/REF JULIUS TO CULTU RE nitrite negati ve negati ve normal Not Available [address] [address] [place], [address], 12/26/2020 16:59:27 12/24/19 21 12/26/2020 URINA LYSIS , COMPL ETE W/REF JULIUS TO CULTU RE leukocyte esterase negati ve negati ve normal Not Available [address], [address], 12/26/2020 16:59:27 12/24/19 21 12/26/2020 URINA LYSIS , COMPL ETE W/REF JULIUS TO CULTU RE WBC none seen /hpf < or = 5 normal Not Available [address] [address] [place], [address], 12/26/2020 16:59:27 12/24/19 21 12/26/2020 URINA LYSIS , COMPL ETE W/REF JULIUS TO CULTU RE RBC none seen /hpf < or = 2 normal Not Available [address] [address] [place], [address], 12/26/2020 16:59:27 12/24/19 21 12/26/2020 URINA LYSIS , COMPL ETE W/REF JULIUS TO CULTU RE squamous epithelial cells 6-10 /hpf < or = 5 abnormal Not Available [address] [address] [place], [address], 12/26/2020 16:59:27 12/24/19 21 12/26/2020 URINA LYSIS , COMPL ETE W/REF JULIUS TO CULTU RE bacteria none seen /hpf none seen normal Not Available [address] [address] [place], [address], 12/26/2020 16:59:27 12/24/19 21 12/26/2020 URINA LYSIS , COMPL ETE W/REF JULIUS TO CULTU RE hyaline cast none seen /lpf none seen normal Not Available [address], [address], 12/26/2020 16:59:27 12/24/19 21 12/26/2020 CBC (INCL UDES DIFF/ PLT) white blood cell count 5.7 thous and/u L 3.8-10 .8 normal Not Available [address], [address], 12/26/2020 16:59:26 12/24/19 21 12/26/2020 CBC (INCL UDES DIFF/ PLT) red blood cell count 4.75 vannesa on/uL 3.80-5 .10 normal Not Available [address], [address], 12/26/2020 16:59:26 12/24/19 21 12/26/2020 CBC (INCL UDES DIFF/ PLT) hemoglobin 12.6 g/dL 11.7-1 5.5 normal Not Available [address], [address], 12/26/2020 16:59:26 12/24/19 21 12/26/2020 CBC (INCL UDES DIFF/ PLT) hematocrit 39.7 % 35.0-4 5.0 normal Not Available [address], [address], 12/26/2020 16:59:26 12/24/19 21 12/26/2020 CBC (INCL UDES DIFF/ PLT) MCV 83.6 fL 80.0-1 00.0 normal Not Available [address], [address], 12/26/2020 16:59:26 12/24/19 21 12/26/2020 CBC (INCL UDES DIFF/ PLT) MCH 26.5 pg 27.0-3 3.0 low Not Available [address], [address], 12/26/2020 16:59:26 12/24/19 21 12/26/2020 CBC (INCL UDES DIFF/ PLT) MCHC 31.7 g/dL 32.0-3 6.0 low Not Available [address], [address], 12/26/2020 16:59:26 12/24/19 21 12/26/2020 CBC (INCL UDES DIFF/ PLT) RDW 14.5 % 11.0-1 5.0 normal Not Available [address], [address], 12/26/2020 16:59:26 12/24/19 21 12/26/2020 CBC (INCL UDES DIFF/ PLT) platelet count 215 thous and/u L 140-40 0 normal Not Available [address], [address], 12/26/2020 16:59:26 12/24/19 21 12/26/2020 CBC (INCL UDES DIFF/ PLT) MPV 11.1 fL 7.5-12 .5 normal Not Available [address], [address], 12/26/2020 16:59:26 12/24/19 21 12/26/2020 CBC (INCL UDES DIFF/ PLT) absolute neutrophils 3352 cells /uL 1500-7 800 normal Not Available [employer] [address], [address], 12/26/2020 16:59:26 12/24/19 21 12/26/2020 CBC (INCL UDES DIFF/ PLT) absolute lymphocytes 1932 cells /uL 850-39 00 normal Not Available [address], [address], 12/26/2020 16:59:26 12/24/19 21 12/26/2020 CBC (INCL UDES DIFF/ PLT) absolute monocytes 268 cells /uL 200-95 0 normal Not Available [address], [address], 12/26/2020 16:59:26 12/24/19 21 12/26/2020 CBC (INCL UDES DIFF/ PLT) absolute eosinophils 120 cells /uL 15-500 normal Not Available [address], [address], 12/26/2020 16:59:26 12/24/19 21 12/26/2020 CBC (INCL UDES DIFF/ PLT) absolute basophils 29 cells /uL 0-200 normal Not Available [address], [address], 12/26/2020 16:59:26 12/24/19 21 12/26/2020 CBC (INCL UDES DIFF/ PLT) neutrophils 58.8 % normal Not Available [facility] [address], [address], 12/26/2020 16:59:26 12/24/19 21 12/26/2020 CBC (INCL UDES DIFF/ PLT) lymphocytes 33.9 % normal Not Available [address], [address], 12/26/2020 16:59:26 12/24/19 21 12/26/2020 CBC (INCL UDES DIFF/ PLT) monocytes 4.7 % normal Not Available [address], [address], 12/26/2020 16:59:26 12/24/19 21 12/26/2020 CBC (INCL UDES DIFF/ PLT) eosinophils 2.1 % normal Not Available [address], [address], 12/26/2020 16:59:26 12/24/19 21 12/26/2020 CBC (INCL UDES DIFF/ PLT) basophils 0.5 % normal Not Available [address], [address], 12/26/2020 16:59:26 12/24/19 21 12/26/2020 HEMOG LOBIN A1C hemoglobin A1C 5.8 %_of_ total _HGB <5.7 high Not Available [address], [address], 12/26/2020 16:59:26 12/24/19 21 12/26/2020 COMPR EHENS PAVEL METAB OLIC PANEL glucose 99 mg/dL 65-99 normal Fasti ng refer ence inter luci Not Available [address], [address], 12/26/2020 16:59:25 12/24/19 21 12/26/2020 COMPR EHENS PAVEL METAB OLIC PANEL urea nitrogen (BUN) 20 mg/dL 7-25 normal Not Available [address], [address], 12/26/2020 16:59:25 12/24/19 21 12/26/2020 COMPR EHENS PAVEL METAB OLIC PANEL creatinine 0.65 mg/dL 0.50-1 .10 normal Not Available [address], [address], 12/26/2020 16:59:25 12/24/19 21 12/26/2020 COMPR EHENS PAVEL METAB OLIC PANEL eGFR non-afr. citizen of [place] 108 mL/mi n/1.7 3m2 > or = 60 normal Not Available [address], [address], 12/26/2020 16:59:25 12/24/19 21 12/26/2020 COMPR EHENS PAVEL METAB OLIC PANEL eGFR 125 mL/mi n/1.7 3m2 > or = 60 normal Not Available [address], [address], 12/26/2020 16:59:25 12/24/19 21 12/26/2020 COMPR EHENS PAVEL METAB OLIC PANEL BUN/creatini ne ratio not applic able (calc ) 6-22 Not Available [address], [address], 12/26/2020 16:59:25 12/24/19 21 12/26/2020 COMPR EHENS PAVEL METAB OLIC PANEL sodium 140 mmol/ L 135-14 6 normal Not Available [address], [address], 12/26/2020 16:59:25 12/24/19 21 12/26/2020 COMPR EHENS PAVEL METAB OLIC PANEL potassium 4.5 mmol/ L 3.5-5. 3 normal Not Available [address], [address], 12/26/2020 16:59:25 12/24/19 21 12/26/2020 COMPR EHENS PAVEL METAB OLIC PANEL chloride 105 mmol/ L 98-110 normal Not Available [address], [address], 12/26/2020 16:59:25 12/24/19 21 12/26/2020 COMPR EHENS PAVEL METAB OLIC PANEL carbon dioxide 27 mmol/ L 20-32 normal Not Available [address], [address], 12/26/2020 16:59:25 12/24/19 21 12/26/2020 COMPR EHENS PAVEL METAB OLIC PANEL calcium 8.5 mg/dL 8.6-10 .2 low Not Available [address], [address], 12/26/2020 16:59:25 12/24/19 21 12/26/2020 COMPR EHENS PAVEL METAB OLIC PANEL protein, total 6.7 g/dL 6.1-8. 1 normal Not Available [address], [address], 12/26/2020 16:59:25 12/24/19 21 12/26/2020 COMPR EHENS PAVEL METAB OLIC PANEL albumin 4.1 g/dL 3.6-5. 1 normal Not Available [address], [address], 12/26/2020 16:59:25 12/24/19 21 12/26/2020 COMPR EHENS PAVEL METAB OLIC PANEL globulin 2.6 g/dL_ (calc ) 1.9-3. 7 normal Not Available [address], [address], 12/26/2020 16:59:25 12/24/19 21 12/26/2020 COMPR EHENS PAVEL METAB OLIC PANEL albumin/glob ulin ratio 1.6 (calc ) 1.0-2. 5 normal Not Available [address], [address], 12/26/2020 16:59:25 12/24/1912/26/2020 COMPR EHENS PAVEL METAB OLIC PANEL bilirubin, total 0.2 mg/dL 0.2-1. 2 normal Not Available [address], [address], 12/26/2020 16:59:25 12/24/19 21 12/26/2020 COMPR EHENS PAVEL METAB OLIC PANEL alkaline phosphatase 87 U/L 31-125 normal Not Available [address], [address], 12/26/2020 16:59:25 12/24/19 21 12/26/2020 COMPR EHENS PAVEL METAB OLIC PANEL AST 13 U/L 10-30 normal Not Available [address], [address], 12/26/2020 16:59:25 12/24/19 21 12/26/2020 COMPR EHENS PAVEL METAB OLIC PANEL ALT 20 U/L 6-29 normal Not Available [address], [address], 12/26/2020 16:59:25 12/24/19 21 12/26/2020 LIPID PANEL WITH RATIO S cholesterol, total 209 mg/dL <200 high Not Available [address], [address], 12/26/2020 16:59:25 12/24/19 21 12/26/2020 LIPID PANEL WITH RATIO S HDL cholesterol 68 mg/dL > or = 50 normal Not Available [address], [address], 12/26/2020 16:59:25 12/24/19 21 12/26/2020 LIPID PANEL WITH RATIO S triglyceride s 76 mg/dL <150 normal Not Available [address], [address], 12/26/2020 16:59:25 12/24/19 21 12/26/2020 LIPID PANEL [...] 310(1 9): 2061- 2068 (http ://ed ucati on.[employer] Renny luzAurora Feint. com/f aq/FA Q164) Not Available [address], [address], 12/26/2020 16:59:25 12/24/19 21 12/26/2020 LIPID PANEL WITH RATIO S chol/HDLC ratio 3.1 (calc ) <5.0 normal Not Available [address], [address], 12/26/2020 16:59:25 12/24/1912/26/2020 LIPID PANEL WITH RATIO S LDL/HDL ratio 1.8 (calc ) Below avera ge Risk: <2.34 [place] ge Risk: 2.35- 4.12 Moder ate Risk: 4.13- 5.56 High Risk: >5.57 Not Available [address], [address], 12/26/2020 16:59:25 12/24/19 21 12/26/2020 LIPID PANEL WITH RATIO S non HDL cholesterol 141 mg/dL _(estefany c) <130 high For patie nts with diabe seven plus 1 major ASCVD risk facto r, treat ing to a non-H DL-C goal of <100 mg/dL (LDL- C of <70 mg/dL ) is consi elizaebth bradley optio n. Not Available [address], [address], 12/26/2020 16:59:25 12/24/1912/26/2020 TSH+F REE T4 TSH 2.87 mIU/L normal Refer ence Range > or = 20 Years 0.40- 4.50 Pregn tobias Range s First trime ster 0.26- 2.66 Secon d trime ster 0.55- 2.73 Third trime ster 0.43- 2.91 Not Available [address], [address], 12/26/2020 16:59:24 12/24/1912/26/2020 TSH+F REE T4 T4, free 1.1 NG/dL 0.8-1. 8 normal Not Available [address], [address], 12/26/2020 16:59:24 12/24/19 21 12/26/2020 TESTO STERO NE, FREE, BIOAV AILAB LE AND TOTAL , MS albumin 4.3 g/dL 3.6-5. 1 Not Available [address], [address], 12/26/2020 16:59:23 12/24/1912/26/2020 TESTO STERO NE, FREE, BIOAV AILAB LE AND TOTAL , MS sex hormone binding globulin 35.2 nmol/ L 17-124 Not Available [address], [address], 12/26/2020 16:59:23 12/24/1912/26/2020 TESTO STERO NE, FREE, BIOAV AILAB LE AND TOTAL , MS testosterone , free 2.1 pg/mL 0.2-5. 0 Not Available [address], [address], 12/26/2020 16:59:23 12/24/1912/26/2020 TESTO STERO NE, FREE, BIOAV AILAB LE AND TOTAL , MS testosterone ,bioavailabl e 4.1 NG/dL 0.5-8. 5 Not Available [address], [address], 12/26/2020 16:59:23 12/24/1912/26/2020 TESTO STERO NE, FREE, BIOAV AILAB LE AND TOTAL , MS testosterone , total, MS 19 NG/dL 2-45 For addit ional infor danilo franklin e refer to https ://ed ucati on.qu megandi luzos tics. com/f aq/FA Q165 (This link is being provi ded for infor matio nal/e ducat ional purpo ses only. ) (Note ) This test was devel ysd and its christos tical perfo rmanc e ej cteri stics have been deter mined by [employer]. It has not been clear ed or appro andrzej by the FDA. This assay has been valid ated pursu ant to the CLIA regul ation s and is used for clini estefany purpo ses. MDF med fusio n [address] [facility] [address] [place] [address] [phone] Jordan akhtar MD Not Available [facility] [address] [place], [address], 12/26/2020 16:59:23 12/24/19 21 12/26/2020 FSH AND LH FSH 7.9 mIU/m L normal Refer ence Range Folli cular Phase 2.5-1 0.2 Mid-c ycle Peak 3.1-1 7.7 Lutea l Phase 1.5- 9.1 Postm enopa usal 23.0- 116.3 Not Available [facility] [address] [place], [address], 12/26/2020 16:59:21 12/24/19 21 12/26/2020 FSH AND LH LH 4.7 mIU/m L normal Refer ence Range Folli cular Phase 1.9-1 2.5 Mid-C ycle Peak 8.7-7 6.3 Lutea l Phase 0.5-1 6.9 Postm enopa usal 10.0- 54.7 Not Available [facility] [address] [place], [address], 12/26/2020 16:59:21 09/25/19 22 09/24/2021 tread mill nucle ar stres s test (PROC ) No observ ation record ed. [id number] [facility] (Cardiology) [address] [facility] [place], [address], 05/27/2022 19:46:15 02/11/20 22 11/04/2021 home sleep study No observ ation record ed. [id number] [facility] [address] [facility] [place], [address], 05/27/2022 19:46:15 03/31/19 24 03/30/2023 XR, chest , 2 view No observ ation record ed. [email or web address] [facility] [address], [place], [address], 04/01/2023 12:24:16 Result Notes None recorded. Problems Name Problem SNOMED Code Status Onset Date Resolution Date Notes Provider Name and Address Organization Details Recorded Time Lateral epicondyliti s 080258247 Active Not Available [facility] 3 19:45:21 Acute urinary tract infection 616545231 Active 2021 Not Available [facility] 3 19:45:22 Polycystic ovary syndrome 982234852 Active 2021 Not Available [facility] 3 19:45:21 Hypothyroidi sm 37294754 Active 2021 Not Available [facility] 3 19:45:21 Hyperlipidem ia 48650572 Active 2021 Not Available [facility] 3 19:45:22 Foreign body in skin of foot 495404065 Active 2021 Not Available [facility] 3 19:45:22 Hyperinsulin ism 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 Active 2021 Not Available [facility] 3 19:45:22 Chest pain 13806722 Active 2021 Not Available [facility] 3 19:45:21 Impaired glucose tolerance 4743986 Active 2021 Not Available [facility] 3 19:45:22 Strain of thoracic region 71120667 Active 2021 Not Available [facility] 3 19:45:22 Sleep apnea 84933786 Active 2021 Not Available [facility] 3 19:45:22 Thoracic back pain 167705993 Active 2021 Not Available [facility] 3 19:45:21 Upper respiratory infection 32444407 Active 2021 Not Available [facility] 3 19:45:22 Acute sinusitis 81496482 Active 2021 Not Available [facility] 3 19:45:21 Cough 90600815 Active 2021 Not Available [facility] 3 19:45:22 Obstructive sleep apnea syndrome 09968057 Active 2021 Not Available [facility] 3 19:45:22 Candidiasis of vagina 17385584 Active 2021 Not Available [facility] 3 19:45:22 Acute pharyngitis 877189513 Active 2022 Not Available [facility] 3 19:45:21 Herpes labialis 3256425 Active 2022 KIMBERLY Moore [address], [place], [address] , [employer] 3 15:33:18 Chronic pharyngitis 103252 Active 2022 KIMBERLY Moore [address], [address], [place], [address] , [employer] [facility] 3 13:36:16 Nausea 680602504 Active 2022 KIMBERLY Moore [address], [place], [address] , [place] [employer] [facility] 3 16:24:42 Acute low back pain 109670050 Active 2022 KIMBERLY Moore [address], [place], [address] , [employer] [facility] 3 13:39:53 Change in skin lesion 588821546 Active 2022 KIMBERLY Moore [address], [address], [place], [address] , [employer] 3 13:40:01 Acute upper respiratory infection 72766050 Active 2022 KIMBERLY Moore [address], [place], [address] , [employer] 3 15:56:17 Otalgia of left ear 0633545388 Active 2022 KIMBERLY Moore [address], [place], [address] , [employer] 3 16:38:27 Vitamin D deficiency 11982011 Active 2022 KIMBERLY Moore [address], [address], [place], [address] , [employer] 3 13:17:00 Notes:COVID-19 pos 04/17/21 Problem Notes None recorded. Procedures Surgical History Date Name Laterality Status Provider Name and Address Organization Details Recorded Time 03/29/19 14 dilation and curettage completed Not Available [facility] 05/27/2022 19:44:50 reconstruction of anterior cruciate ligament of knee joint completed Not Available [facility] 05/27/2022 19:44:50 section completed Not Available [facility] 05/27/2022 19:44:50 loop electrosurgical excision procedure completed Not Available [facility] 05/27/2022 19:44:50 Imaging Results None recorded. Procedure Notes None recorded. Medical Equipment None Reported. Allergies Allergen ID Allergen Name Allergen Category Reaction Reaction Severity Criticality Documentation Date Start Date Code Code System Note Provider Name and Address Organization Details Recorded Time 64785 wheat gluten extract food Not available Not available Not available 05/27/2022 88098 81 RxNorm Not Available [facility] 19:46:11 Medications Name Sig Start Date Stop [...] administe red by the provider 07/18 completed [facility]: 0003- 0494- 20 Not Available Not Available [...] administe red by the provider 07/18 completed [facility]: 0409- 4276- 17 Not Available Not Available Not Available Nucynta 75 mg tablet 09/16 completed Not Available Not Available Not Available Vitals Date Recorded Body mass index (BMI) Body height Oxygen saturation Heart rate Respiratory rate Body temperature Body weight Provider Name and Address Organization Details Last Updated DateTime 3 45.4 kg/m2 171.45 cm 97 % 77 /min 16 /min 97.3 [degF] 827451. 95 g Not Available [facility] 3 19:44:56 Date Recorded Body mass index (BMI) Body height Oxygen saturation Heart rate Body temperature Body weight Systolic And Diastolic Systolic And Diastolic Provider Name and Address Organization Details Last Updated DateTime 1 47.4 kg/m2 171.45 cm 88 % 97 /min 97.2 [degF] 589575. 86 g 130/80 mm[Hg] 110/80 mm[Hg] Not Available [facility] 3 19:44:53 Date Recorded Body height Body mass index (BMI) Body weight Heart rate Oxygen saturation Body temperature Systolic And Diastolic Provider Name and Address Organization Details Last Updated DateTime 3 171.45 cm 45.7 kg/m2 807159. 34 g 82 /min 98 % 98.3 [degF] 112/80 mm[Hg] Amy Ornelas RN [place] - [facility] [employer] [facility] 3 16:20:00 Date Recorded Body mass index (BMI) Body height Oxygen saturation Heart rate Respiratory rate Body temperature Body weight Systolic And Diastolic Provider Name and Address Organization Details Last Updated DateTime 2 48.4 kg/m2 171.45 cm 98 % 80 /min 16 /min 97.9 [degF] 871293. 57 g 122/78 mm[Hg] Not Available [facility] 3 19:44:53 Date Recorded Body mass index (BMI) Body height Oxygen saturation Heart rate Respiratory rate Body temperature Body weight Systolic And Diastolic Provider Name and Address Organization Details Last Updated DateTime 2 48.6 kg/m2 171.45 cm 97 % 85 /min 16 /min 97.5 [degF] 970070. 88 g 128/80 mm[Hg] Not Available [facility] 3 19:44:53 Social History Question Answer Notes LastModified by Organizat ion Details LastModified Time Tobacco Smoking Status Former Smoker Not Available [facility] 05/27/2022 19:44:42 What Is Your Level Of Caffeine Consumption? Moderate [id number] Information not available 05/27/2022 How Much Tobacco Do You Chew? None [id number] Information not available 05/27/2022 In The 14 Days Before Symptom Onset, Have You Had Close Contact With A Laboratory-confirm ed COVID-19 While That Case Was Ill? No [id number] Information not available 05/27/2022 In The 14 Days Before Symptom Onset, Have You Had Close Contact With A Person Who Is Under Investigation For COVID-19 While That Person Was Ill? No [id number] Information not available 05/27/2022 What Type Of Diet Are You Following? REGULAR [id number] Information not available 05/27/2022 Which Illicit Or Recreational Drugs Have You Used? None [id number] Information not available 05/27/2022 Have There Been Any Changes To Your Family Or Social Situation? No [id number] Information not available 05/27/2022 Are There Any Guns Present In Your Home? No [id number] Information not available 05/27/2022 Do You Use Insect Repellent Routinely? No [id number] Information not available 05/27/2022 What Is Your Relationship Status? [id number] Information not available 05/27/2022 Do You Use Your Seat Belt Or Car Seat Routinely? Yes [id number] Information not available 05/27/2022 Do You Have Smoke And Carbon Monoxide Detectors In Your Home? Yes [id number] Information not available 05/27/2022 At What Age Did You Start Smoking Tobacco? 15 [id number] Information not available 05/27/2022 How Much Tobacco Do You Smoke? No [id number] Information not available 05/27/2022 Do You Use Sunscreen Routinely? Yes [id number] Information not available 05/27/2022 Have You Recently Traveled Abroad? No [id number] Information not available 05/27/2022 Do You Have Any Dietary Restrictions? No [id number] 3091 Information not available 05/27/2022 Sex: Unknown Functional Status Question Answer Note LastModified by Organizat ion Details LastModified Time Do you use any illicit or recreational drugs? No [id number] Information not available 05/27/2022 Do you or have you ever used any other forms of tobacco or nicotine? No [id number] Information not available 05/27/2022 What is your level of alcohol consumption? None [id number] Information not available 05/27/2022 Do you or have you ever used smokeless tobacco? 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 Never used electronic cigarettes [id number] Information not available 05/27/2022 What is your exercise level? Moderate [id number] Information not available 05/27/2022 Mental Status None recorded. Family History Relationship Description Onset Age of this Age Resolved Age Notes LastModified by Organization Details LastModified Time Mother Varicose veins of lower extremity [id number] Not available 05/27/2022 19:44:51 Notes:rheumatoid arthritis : [...] toxoid, unspecified formulation 2 completed Not Available [facility] 05/27/2022 19:46:09 Past Encounters Encounter ID Performer Location Encounter Start Date Encounter Closed Date Diagnosis/Indication Diagnosis SNOMED-CT Code Diagnosis ICD10 Code Diagnosis IMO Codes Diagnosis Note [id number] KIMBERLY Moore [facility] [place] [address] [place] [address] 07/19/2020 00:00:00 07/21/2020 17:46:59 [id number] Zhao [address] [facility] [place] [address] [place] [address] 09/10/2021 00:00:00 09/25/2021 14:11:32 [id number] Zhao MD [facility] Internal [facility] [place] [address] [place] [address] 10/06/2021 00:00:00 10/08/2021 13:34:[id number] [facility] Internal [facility] [place] [address] [place] [address] 05/21/2022 00:00:00 05/23/2022 19:49:22 [id number] KIMBERLY Moore [facility] Internal [facility] [place] [address] [place] [address] 09/04/2022 16:14:41 09/04/2022 16:40:25 Impaired glucose tolerance 8998452 R73.03 due for a1c Hypothyroidism 25071853 E03.9 due for TFTs Hyperlipidemia 59936200 E78.5 due for fasting lipids Long-term drug therapy [id number] Z79.899 CBC and CBC due Otalgia of left ear 1010 123965 H92.02 no erythema is present in left [...] Member ID Guarantor Name 09/24/2022 1 [employer] [id number] Víctor Soriano [id number] 2 Christel Soriano Notes Date Note Type [...] and pain in that ear. KIMBERLY Moore [address] [place] [address], [facility] [address], [place], [address], [facility] [employer] [facility] 09/23/2022 23:12:16 OBGyn Episode No OBEpisode recorded.
[2025-03-27 15:50] VITALS: BP 140/77; PULSE 80; RESP 18; TEMP 36.6; O2SAT 100
--- NOTE | 2025-03-27 16:12 | ED_ITS ---
HPI - URI/Sore Throat General Chief Complaint: Upper Respiratory Infection Stated Complaint: tight chest Time Seen by Provider: 03/27/25 16:12 Source: patient, RN notes reviewed and old records reviewed Mode of arrival: ambulatory Limitations: no limitations History of Present Illness HPI Narrative: 49-year-old female presents to the [facility] with continued cough, intermittent chest tightness and chills since being diagnosed with COVID-19 on 03/17 states that it got worse on 2 days ago. Patient reports that she tried calling her primary care provider who referred her back to the urgent care for further evaluation. Treatments prior to arrival: cold medicine Related Data Home Medications ?Medication ?Instructions ?Recorded ?Confirmed ?Last Taken ?Type ergocalciferol (vitamin D2) 1,250 03/17/25 Unknown H istory mcg (50,000 unit) capsule levothyroxine 75 mcg tablet mcg 03/17/25 Unknown Hist ory Allergies Allergy/AdvReac Type Severity Reaction Status Date / Time gluten Allergy Intermediate RASH,SWELLI Verified 03/27/25 16:15 NG acetaminophen AdvReac Unknown N&V Verified 03/27/25 16:15 hydrocodone AdvReac Unknown N&V Verified 03/27/25 16:15 Review of Systems Review of Systems: All systems reviewed & are unremarkable except as noted in HPI and below Constitutional: Constitutional: Reports no additional constitutional co mplaints ENT: Reports system reviewed and no additional complaints, except as documented Cardiovascular: Cardiovascular: Reports no additional cardiovascular complaints, Denies chest pain and Denies dyspnea Respiratory: Respiratory: Reports as per HPI, Reports chest congestion, Reports cough and Denies dyspnea Musculoskeletal: Musculoskeletal: Reports no additional musculoskeletal complaints Integumentary/Breasts: Skin/Breast: Reports system reviewed and no additional complaints, except as docu PMFSH Past Medical History Medical History Hypothyroid History of PCOS Pre-diabetes Surgical History Surgical History H/O wisdom tooth extraction S/P ACL surgery Unknown which leg History of Social History Social History Smoking status: Never smoker Alcohol intake: never Gender identity (if verbalized by the patient): Female Comments At the time of my signature, I reviewed and agree with the nursing past medical, surgical, social, and family history. There is no relevant family history pertinent to the patient complaint. Exam Const: General: cooperative, healthy appearing, comfortable, no acute distress, well developed, alert and well nourished Nutritional Appearance: well nourished and obese Orientation/consciousness: patient oriented x3 Limitations: no limitations HENMT: Head: normal to inspection Ears: hearing grossly normal bilaterally, external ears normal, TM's normal bilaterally, EAC's normal, mastoids normal and no periauricular adenopathy Face and sinus: normal facial exam and face symmetric Mouth: Yes Normal oral and palatal mucosa present, Yes lip normal, Yes tongue normal and Yes moist mucous membranes Throat: posterior oropharynx normal, uvula midline and no uvular edema Eyes: General: appearance normal, both eyes and all related structures Alignment and Position: alignment normal Neck: Neck: normal visual inspection, full ROM, no lymphadenopathy and no meningeal signs Chest: Chest palpation & inspection: normal inspection of the chest Resp: Effort & Inspection: normal respiratory effort and able to speak in complete sentences Auscultation: clear to auscultation bilaterally, no crackles, no rales, no rhonchi and no wheezes Cardio: Rate: regular rate Skin: General skin exam: normal color and no rashes or lesions noted Neuro: General: patient oriented x3, gait normal, moves all extremities and no meningeal signs Cognition (Neuro): normal cognition Speech: normal speech Gait exam (Neuro): Normal gait present Extrem: General: normal to inspection, full ROM, capillary refill normal and normal gait Psych: Appearance: grossly normal and well kempt Mental Status: mental status grossly normal Speech and movement: Normal speech and movement present and Clear speech present Affect: normal affect Attitude: cooperative Course Course Level of Care: Express Care Visit Vital Signs Vital signs: Vital Signs Temperature 97.8 F 03/27/25 15:50 Pulse Rate 80 03/27/25 15:50 Respiratory Rate 18 03/27/25 15:50 Blood Pressure 140/77 03/27/25 15:50 Pulse Oximetry 100 03/27/25 15:50 Oxygen Delivery Room Air 03/27/25 15:50 Temperature 97.8 F 03/27/25 15:50 Pulse Rate 80 03/27/25 15:50 Respiratory Rate 18 03/27/25 15:50 Blood Pressure 140/77 03/27/25 15:50 Pulse Oximetry 100 03/27/25 15:50 Oxygen Delivery Room Air 03/27/25 15:50 reviewed [facility] Narrative Medical decision making narrative: Patient sitting in exam room. Patient is nontoxic, vitals stable. patient reports with continued symptoms since being diagnosed with COVID-19. Requesting a chest x-ray. Chest x-ray shows no acute findings. Patient appropriate for outpatient treatment with close follow-up Discharge instructions reviewed with patient, as well as provided in writing per nursing staff. The instructions also include specific and strict return/GO TO THE ER as well as f/u information. All questions have been answered, and the patient deny any further questions with discharge and discharge plan. Some parts of this dictation were generated by voice recognition software and may contain typographical and/or grammatical inaccuracies. Differential Diagnosis Differential Diagnosis: Differential diagnostic considerations for upper respiratory infection include upper respiratory infection, croup, otitis media, sinusitis, viral infection, bronchitis, influenza, pharyngitis, strep, uvulitis.? Lab Data [facility] Lab Attestation statement: I personally reviewed the patient's lab results. Labs: Reviewed Imaging Data Radiologist's impression: ITS Impressions Chest X-Ray 03/27/25 16:19 IMPRESSION: 1. No acute cardiopulmonary disease. EXAMINATION: XR chest 2V DATE: 03/27/2025 16:14 INDICATION: Cough. Recent Covid infection. TECHNIQUE: PA and lateral views of the chest were obtained. COMPARISON: Chest radiograph dated 03/30/2023 FINDINGS: The lungs remain clear with no focal airspace opacities, pulmonary edema, pleural effusion or pneumothorax. The cardiomediastinal silhouette is normal. Mild thoracic spondylosis. IMPRESSION: 1. No acute cardiopulmonary disease. Discharge Plan Discharge Clinical Impression: History of COVID-19 Cough Qualifiers: Cough type: unspecified Qualified Code(s): R05.9 - Cough, unspecified Patient Disposition: Home Condition: Stable Instructions: Acute Cough (ED) Additional Instructions: your x-ray did not show signs of a pneumonia. After having COVID a cough can last for a couple of months. It is very important to treat your symptoms. Drink plenty of water, Gatorade, Pedialyte, ice pops or Jell-O. -Alternate Tylenol and Motrin per package directions for fever or pain. You can alternate every 4 hours -Antihistamine medication such as Zyrtec/Claritin during the day can help improve symptoms. -Use Flonase twice a day for 5 days then daily to help reduce the inflammation and dry up your sinuses. -You can also use Mucinex. Be sure to drink plenty of water with this medication at least 8 ounces with every dose and it is important to drink 8 to 10 glasses of water per day. Water is a natural decongestant -Oral rinses such as: Salt water gargles and/or may use topical anesthetic (eg. Chloraseptic spray) or lozenges to relieve dryness or throat pain). -Frequent hand washing or hand pediatric urologist is one of the best ways to prevent spread of infection. -Using a vaporizer or humidifier at night will also help thin secretions and help with coughing up phlegm. -Follow up with primary care provider in 7-10 days if condition is not improving - For new or worsening symptoms go directly to the nearest ER Patient Language: Divehi Prescriptions: No Action levothyroxine 75 mcg tablet ergocalciferol (vitamin D2) 1,250 mcg (50,000 unit) capsule naproxen 500 mg tablet 500 mg PO BID Qty: 20 0RF Follow-up/Referrals: John,CLIFTON Lopez [Primary Care Provider, Unknown] - 2 Weeks Clinical Impression: History of COVID-19; Cough Time of Disposition: 16:26
== END 2025-03-27 16:30 | disposition home or self-care (01) ==
PROVIDERS: Emergency Provider Nurse Practitioner; PCP Physician Assistant
DX: U07.1 COVID-19 (principal); R05.9 Cough, unspecified; E03.9 Hypothyroidism, unspecified
CPT/HCPCS: 71046; 99213; G0463